=== PATIENT | female | born 1935 | race Caucasian/White ===

== ENCOUNTER → 2017-11-22 10:24 | Outpatient (CLI) | payer MEDICARE, SELFPAY ==
--- NOTE | 2017-11-22 | DI.RAD.S_ITS ---
PROCEDURE: XR KNEE RT 3V INDICATIONS: RIGHT AND LEFT KNEE PAIN TECHNIQUE: 3 views of the knee were acquired. COMPARISON: None. FINDINGS: Bones: No fractures or dislocations. No suspicious bony lesions. [id number] narrowing of the patellofemoral joint space. Severe narrowing of the lateral and mild narrowing of the medial joint spaces. Subchondral sclerosis and spurring. Soft tissues: Small joint effusion. No suspicious soft tissue calcifications. Scattered vascular calcifications. IMPRESSION: Severe degenerative joint disease. Small joint effusion. Dictated by: Bandar Marte M.D. on 11/22/2017 at 11:04 Approved by: Bandar Marte M.D. on 11/22/2017 at 11:05
--- NOTE | 2017-11-22 | DI.RAD.S_ITS ---
PROCEDURE: XR KNEE LT 3V INDICATIONS: RIGHT AND LEFT KNEE PAIN TECHNIQUE: 3 views of the knee were acquired. COMPARISON: None. FINDINGS: Bones: No fractures or dislocations. Severe patellofemoral joint space narrowing with [id number] appearance in lateral patellar subluxation. Moderate narrowing of the medial lateral joint spaces. There is subchondral sclerosis. Chondrocalcinosis noted No suspicious bony lesions. Soft tissues: Small joint effusion. No suspicious soft tissue calcifications. IMPRESSION: Severe knee joint degeneration, most advanced in the patellofemoral compartment. Chondrocalcinosis. Small joint effusion. Dictated by: Bandar Marte M.D. on 11/22/2017 at 11:05 Approved by: Bandar Marte M.D. on 11/22/2017 at 11:06
== END ==
PROVIDERS: PCP Physician Assistant; Visit Provider Physician Assistant
DX: M17.0 Bilateral primary osteoarthritis of knee (principal); M25.562 Pain in left knee; M25.561 Pain in right knee; M25.462 Effusion, left knee; M25.461 Effusion, right knee
CPT/HCPCS: 73562

== ENCOUNTER → 2018-05-24 16:09 | Outpatient (CLI) | payer MEDICARE, SELFPAY ==
[2018-05-24 17:12] LABS: Basophils Absolute Auto 100 /uL (0-100); Basophils Percent Auto 0.7 % (0-2); Eosinophils Absolute Auto 200 /uL (0-450); Eosinophils Percent Auto 2.2 % (2-4); Hematocrit 40.8 % (36-46); Hemoglobin 13.6 g/dL (12.0-16.0); Lymphocytes Absolute Auto 1700 /uL (1100-4500); Lymphocytes Percent Auto 18.4 % (25-40); Mean Corpuscular HGB Conc 33.3 % (30-36); Mean Corpuscular Volume 96.1 fL (80-100); Monocytes Absolute Auto 1100 /uL (0-900); Monocytes Percent Auto 11.7 % (3-14); Neutrophils Absolute Auto 6100 /uL (1500-7000); Platelet Count 154 X10^3/uL (150-400); Red Blood Cell Count 4.24 X10^6/uL (4.0-5.2); Red Cell Distribution Width 14.2 % (11.6-14.8); White Blood Cell Count 9.1 X10^3/uL (4.5-11.0)
[2018-05-24 17:15] LABS: Add Manual Diff / Slide Review SLIDE REVIEW
[2018-05-24 17:48] LABS: BUN Creatinine Ratio 19.2 (6-22); Blood Urea Nitrogen 23 mg/dL (7-17); Calcium 9.5 mg/dL (8.4-10.2); Carbon Dioxide 28 mmol/L (22-32); Chloride 102 mmol/L (98-107); Estimated Glomerular Filt Rate 43.1 mL/min (>60); Glucose 87 mg/dL (80-110); HEMOLYSIS < 15 (0-50); Potassium 4.5 mmol/L (3.4-5.1); Sodium 140 mmol/L (137-145)
[2018-05-24 18:09] LABS: RBC Morphology Normal Morphology
== END ==
PROVIDERS: PCP Physician Assistant; Visit Provider Orthopaedic Surgery
DX: Z01.818 Encounter for other preprocedural examination (principal)
CPT/HCPCS: 36415; 80048; 85025

== ENCOUNTER 2018-05-30 08:14 | Inpatient (IN) | payer MEDICARE, SELFPAY ==
[2018-05-15 10:48] VITALS: BMI 38.5
[2018-05-30] VITALS (19 sets, daily range): BP systolic 83–140; BP diastolic 32–63; PULSE 56–599; RESP 10–17; TEMP 35.2–36.7; O2SAT 94–100; BMI 38.5
--- NOTE | 2018-05-30 | DI.RAD.S_ITS ---
PROCEDURE: XR HIP W PEL IF DONE RT 2V INDICATIONS: POST OPERATIVE LEFT HIP TECHNIQUE: AP pelvis and lateral view of the left hip acquired. COMPARISON: [facility], CR, XR PELVIS WITH LATERAL HIP LEFT, 12/04/2017, 13:48. [facility], CR, XR HIP W PEL IF DONE LT 2V, 05/30/2018, 12:36. FINDINGS: Bones: Patient is status post left hip arthroplasty, with hardware components in expected positions. The hip joint appears congruent. The visualized bony structures appear intact. Soft tissues: Overlying postoperative changes are noted. No suspicious soft tissue densities. IMPRESSION: Normal alignment after left total hip arthroplasty. With reference to prior plain film imaging of the pelvis preoperatively, 12/04/17, the laterality of the hip that was operated on was definitely the left hip. Dictated by: Cheikh Dyson M.D. on 05/30/2018 at 14:37 Approved by: Cheikh Dyson M.D. on 05/30/2018 at 14:39
--- NOTE | 2018-05-30 06:53 | DI.RAD.S_ITS ---
PROCEDURE: XR HIP W PEL IF DONE LT 2V INDICATIONS: prosthesis placement TECHNIQUE: 2 view(s) of the hip acquired. COMPARISON: None. FINDINGS: Bones: Patient is evaluated during the process of right total hip arthroplasty, with sizing hardware components in expected positions. The hip joint femoral head arthroplasty component has not been placed. The visualized bony structures appear intact. Soft tissues: Overlying postoperative changes are noted. No suspicious soft tissue densities. IMPRESSION: Normal intraoperative alignment during sizing procedure for placement of final components of right total hip arthroplasty. Dictated by: Cheikh Dyson M.D. on 05/30/2018 at 13:08 Approved by: Cheikh Dyson M.D. on 05/30/2018 at 13:10
[2018-05-30] MEDS: LACTATED RINGERS 1,000 ML 42 ML IV ×2 (09:05→13:43)
[2018-05-30] MEDS: ACETAMINOPHEN 325 MG TABLET 975 MG PO ×2 (09:39→21:13)
[2018-05-30] MEDS: PREGABALIN 75 MG CAPSULE PO (09:39)
[2018-05-30] MEDS: VANCOMYCIN 1,000 MG/200 ML FROZ.PIGGY 200 MG IV (10:05)
--- NOTE | 2018-05-30 11:14 | PM.PREOP ---
Pre-operative Note Interval Note History & Physical reviewed/Exam performed by Physician: Yes Changes to H&P: No
--- NOTE | 2018-05-30 11:16 | P.OP_ITS ---
Operative Date/Time/Diagnoses Date of procedure: 05/30/18 Time of procedure: 11:14 Pre-op diagnosis: left hip OA Post-op diagnosis: same Procedure & Clinicians Procedure: left total hip arthroplasty Same procedure as scheduled: Yes Indications: The patient has had progressively worsening left hip pain with radiographic changes consistent with arthritis. Non-operative management has failed and the patient has requested total hip replacement. The risks, benefits and alternatives to surgery were discussed with the patient prior to proceeding. Risks discussed included, but were not limited to, failure to relieve pain, leg length discrepancy, dislocation, stiffness, infection, nerve damage, deep venous thrombosis, pulmonary embolism, stroke, coma, heart attack, permanent paralysis and , as well as the potential need for eventual revision of the prosthetic. Surgeon: Margarita Gracia Exercise Science Internship: [employer] [facility]ost[employer] Anesthesia Type: General and Spinal Operative Notes Findings: Severe left hip osteoarthritis with moderate collapse of the femoral head, adequate stability Closure Type: primary Specimen(s): none sent Prosthetic devices, grafts, tissues, transplants, or devices: Gracia and Nephew standard anthology 8, 52 R3, 52 x 36, 36 by -3 Applied: drain(s) Estimated Blood Loss (mL): 250 Blood products transfused: none Procedure in detail: The patient was seen in the pre-operative area, where the patient identified the left hip as the operative site and this was marked with my initials. The patient received pre-operative antibiotics and was taken to the operating room and placed on the operative table in the right lateral decubitus position after satisfactory anesthesia. A time stamp assembler out was performed. The left leg was prepared from the ankle to the iliac crest with ChloroPrep in the usual fashion and draped through sterile drapes. The hip was approached through an approximately 20 cm incision centered over the greater trochanter and curving gently posteriorly as it went proximally. This was carried sharply to the fascia mehdi, which was divided and retracted with a self retaining retractor. The trochanteric bursa was excised with care being taken to avoid the sciatic nerve, which was identified and protected throughout the case. The short external rotators were incised and the capsulomuscular flap was raised and tagged for later repair. The hip was dislocated, and a femoral neck osteotomy performed approximately 15 mm above the lesser trochanter. Retractors were placed around the femur. The canal was opened with a box cutting osteotome, followed by a T handled reamer and a lateralizing reamer. The chili pepper broach was then used, followed by sequential broaching until there was good stability of the broach in the femur. Retractors were placed to expose the acetabulum. The labrum and central soft tissues were removed. Reaming was performed initially going up in 2 mm increments, then 1 mm increments until good bite was obtained with an odd sized reamer. The cup 1 mm larger than the last reamer was then inserted using the appropriate anteversion guides. A trial neutral liner was placed. The broach was placed in the canal. A trial head and neck were then placed and the hip relocated and checked for leg length and stability. An intraoperative film confirmed the component position and no evidence of fracture. The patient was stable in the position of sleep, of squatting, and could be put through a range of motion with 45 degrees internal rotation without dislocation. At 90 degrees flexion, internal rotation to 90 was possible before dislocation. This was felt to be satisfactory and the appropriate components were opened, and the trials were removed. The acetabular liner was impacted into position. The final stem was then impacted into the prepared femoral canal. A brief Betadine soak was performed while trialing with head options. The hip was meticulously irrigated with normal saline. Finally the femoral head was impacted onto the stem. The acetabulum was cleared of all material and the hip relocated one final time. The capsulomuscular flap was then repaired to the greater trochanter though an awl hole using the tag sutures. The short external rotators were repaired with a nonabsorbable suture. A deep drain was placed and brought out anteriorly. The fascia mehdi was closed with Vicryl. The subcutaneous layer was closed with barbed sutures and SteriStrips. An Aquacel Ag dressing was applied and the patient was taken to recovery having tolerated the procedure well. Complications: none Condition: stable Disposition: Acute Care Plan for aftercare: The patient will be maintained on a standard total hip replacement protocol with weight bearing as tolerated and posterior hip precautions. The patient will receive Aspirin and sequential compression devices for DVT prophylaxis. The patient will be discharged home when safe for the home environment.
[2018-05-30] MEDS: CEFAZOLIN 2 GM/100 ML FROZ.PIGGY IV ×2 (11:30→21:09)
--- NOTE | 2018-05-30 12:00 | SUR.OPER ---
Lateral on padded OR bed. Gel axillary roll. Arms secured on padded armboard with pillow supporting top arm. Padded hip positioner braces x4 - anterior and posterior chest and pelvis. Additional gel pad used anterior pelvis. Gel pad under bottom leg from knee to foot and secured with tape over sheet.
[2018-05-30] MEDS: BUPIVACAINE 0.25% W/ EPI VIAL 60 ML INJ (12:08)
[2018-05-30] MEDS: TRANEXAMIC ACID 1,000 MG VIAL 1000 MG INJ (12:09)
[2018-05-30] MEDS: BUPIVACAINE LIPOSOME 266 MG/20 ML VIAL INJ (12:09)
[2018-05-30] MEDS: EPINEPHrine 1 MG/ML AMPUL IRR (12:14)
[2018-05-30] MEDS: METOCLOPRAMIDE 10 MG/2 ML INJ IV (14:05)
--- NOTE | 2018-05-30 14:09 | SUR.PHASEI ---
1400 pt had sudden onset of nausea and vomited approximately 50mls green/yellow liquid.
[2018-05-30] MEDS: ONDANSETRON 4 MG/2 ML INJ IV ×3 (14:20→22:18)
--- NOTE | 2018-05-30 14:27 | SUR.PHASEI ---
Report called to Barbara, rn, pt packed up and ready for transport and had again sudden onset of nausea and vomited, ondansetron given, barbara called back, transfer on hold. Also on admit to pacu pt noted to have redness and peeling skin to abdominal fold, dr sheikh aware, stated med to treat ordered.
[2018-05-30] MEDS: NALOXONE 0.4 MG/ML VIAL 0.1 MG IV (15:00)
--- NOTE | 2018-05-30 15:04 | SUR.PHASEI ---
Pt vomited a second time, spoke with Dr. vasquez, naloxone 80 mcg given as ordered, pt corrently w/o nausea.
--- NOTE | 2018-05-30 16:08 | SUR.PHASEI ---
Pt w/o nausea for period of time, transfer on hold for change of shift. Pt nauseated again, Dr Avery aware, stated pt ok for transfer, meds for nausea ordered for acute care.
--- NOTE | 2018-05-30 16:10 | SUR.PHASEI ---
Pt transported upstairs to room, left with gail and left in stable condition.
[2018-05-30] MEDS: LACTATED RINGERS 1,000 ML 125 ML IV (17:20)
[2018-05-30] MEDS: DOCUSATE 100 MG CAPSULE PO (21:13)
[2018-05-30] MEDS: ASPIRIN EC 81 MG TABLET PO (21:13)
[2018-05-30] MEDS: GABAPENTIN 600 MG TABLET PO (21:14)
[2018-05-30] MEDS: NYSTATIN CREAM 30 GM 1 APPLIC TOP (21:14)
[2018-05-30] MEDS: METOPROLOL IR 50 MG TABLET PO (21:14)
[2018-05-30] MEDS: TRAMADOL 50 MG TABLET PO (22:18)
[2018-05-31] MEDS: LACTATED RINGERS 1,000 ML 125 ML IV (01:47)
[2018-05-31 04:34] VITALS: BP 132/71; PULSE 60; RESP 16; O2SAT 100
[2018-05-31] MEDS: CEFAZOLIN 2 GM/100 ML FROZ.PIGGY IV (04:48)
--- NOTE | 2018-05-31 04:58 | PC.NURSE ---
Shift Note: Received pt from evening shift. Pt's post surgical void was due at midnight (0000). Pt attempted to void, bladder scan was less than 300ml. Pt made several further attempts to void and last bladder scan amount was >465. Performed an in and out cath on pt at 0400 and output was 675ml of urine. Educated pt that she must void on her own by 1200. Pt acknowledged understanding.
[2018-05-31] MEDS: LEVOTHYROXINE 25 MCG TABLET PO (06:24)
[2018-05-31 06:26] LABS: Hematocrit 35.4 % (36-46); Hemoglobin 11.6 g/dL (12.0-16.0)
[2018-05-31 07:36] VITALS: PULSE 55; RESP 14; O2SAT 100
[2018-05-31 08:00] VITALS: BP 123/69; PULSE 57; RESP 16; TEMP 36.3; O2SAT 97
--- NOTE | 2018-05-31 09:13 | PM.PNPO.1 ---
Subjective Date Patient Seen: 05/31/18 Time Patient Seen: 09:13 Interval history: POD #1 Status post left total hip arthroplasty with Dr. Gracia. Patient has not been up with physical therapy yet. Her pain has been well controlled tramadol. She normally takes Coumadin for AFib. She has had postoperative nausea following surgery. Patient is voiding on her own. Exam Vital Signs (past 8 hours): - 05/31/18 04:34 05/31/18 08:00 Temperature 97.3 F L Pulse Rate 60 57 L Respiratory Rate 16 16 Blood Pressure 132/71 123/69 Pulse Oximetry 100 97 Oxygen Delivery Method Nasal Cannula Oxygen Flow Rate 2 Narrative Exam Narrative: Patient sitting up in bed in no acute distress. She is alert and oriented x3. Calves are soft, compressible, nontender bilaterally. Left hip dressing is CDI. Hemovac drain in place. Sensation intact to light touch throughout bilateral lower extremities. She is able to actively dorsiflex plantar flex. Objective Labs Result Diagrams: 05/31/18 05:38 Labs: Laboratory Results - last 24 hr 05/31/18 05:38 Hgb 11.6 L Hct 35.4 L Assessment & Plan Post-op (1) Atrial fibrillation with RVR: (2) S/P total hip arthroplasty: Postoperative Procedures Operation Date: 05/30/18 10:45 Actual Procedures Side Surgeon p Total Hip Arthroplasty Left Margarita Gracia MD Patient will mobilize with physical therapy today. She will have posterior hip precautions. Continue current pain and nausea medication management. Patient may DC home tonight or tomorrow once mobilizing safely and pain adequately controlled. Quality VTE Deep Vein Thrombosis/Pulmonary Embolism Present on Admission: No
[2018-05-31] MEDS: TRAMADOL 50 MG TABLET PO (09:58)
[2018-05-31] MEDS: ACETAMINOPHEN 325 MG TABLET 975 MG PO ×2 (09:59→13:44)
[2018-05-31] MEDS: DOCUSATE 100 MG CAPSULE PO (09:59)
[2018-05-31] MEDS: GABAPENTIN 100 MG CAPSULE PO (09:59)
[2018-05-31] MEDS: ASPIRIN EC 81 MG TABLET PO (09:59)
[2018-05-31] MEDS: METOPROLOL IR 50 MG TABLET PO (10:00)
[2018-05-31] MEDS: valACYclovir 500 MG TABLET PO (10:01)
[2018-05-31] MEDS: NYSTATIN CREAM 30 GM 1 APPLIC TOP (10:05)
--- NOTE | 2018-05-31 10:33 | PT.IIE ---
Current Diagnoses Unspecified atrial fibrillation (05/30/18) Unilateral primary osteoarthritis, left hip (05/30/18) Presence of unspecified artificial hip joint (05/30/18) Surgery Performed Operation Date: 05/30/18 10:45 Actual Procedures p Total Hip Arthroplasty(Left) - Margarita Gracia MD Surgical History (Last Updated 05/15/18 @ 11:17 by Rosalina Perez RN) History of carpal tunnel release (Acute ~2008) Hx of bladder repair surgery (Acute ~1992) Hx of cholecystectomy (Acute ~1979) Hx of shoulder surgery (Acute ~2006) Status post bilateral cataract extraction (Acute ~2004) Medical History (Last Updated 05/15/18 @ 11:24 by Rosalina Perez RN) Atrial fibrillation (Acute) Chronic kidney disease (Acute) DDD (degenerative disc disease), lumbar (Acute) Edema (Acute) Former smoker (Acute) HTN (hypertension) (Acute) History of hysterectomy (Acute ~01/1990) Neuropathy (Acute) Osteoarthritis (Acute) Osteoporosis (Acute) Pneumonia (Acute 05/22/16) Physical Therapy Inpatient Evaluation/Re-Eval M1 PT/OT-IP Prior Functional Status Start: 05/31/18 13:01 Freq: NEEDED Status: Active Protocol: Document 05/31/18 10:33 AB (Rec: 05/31/18 13:18 AB [id number]) Medical Review Prior Functional Status Medical History Reviewed Yes Communication able to make needs known Mobility and Gait stated that she is modified independent with all mobilities and ambulation using 4WW Activities of Daily Living and IADL's has a caregiver that assists her with putting her socks on Social History Household Members none Living Arrangements Assisted Living Number of Floors (Floors) One Floor Number of Stairs To Enter/Railing? pt lives in the 3rd floor of an [facility] in [facility] with an elevator to get into her floor Home Environment Walk in Shower Built-In Shower Seat Home Equipment Four Wheel Walker Raised Toilet Seat Without Armrests Hand Held Shower Grab Bars Near Toilet Grab Bars In Shower Employment Status Retired Additional Social History Comment daughter stated that she will stay with pt for 1 week to assist her and afterwards, pt has caregivers in the [facility] that she can call for assistance. M2 PT-IP Current Condition Start: 05/31/18 13:01 Freq: NEEDED Status: Active Protocol: Document 05/31/18 10:33 AB (Rec: 05/31/18 13:18 AB [email or web address]) Physical Therapy Current Condition Current Condition Evaluation Date 05/31/18 Treatment Diagnosis s/p L OPAL posterior approach; difficulty in walking Onset Date 05/30/18 Precautions Posterior Hip Precautions No Hip Flexion > 90 degrees No Hip Internal Rotation No Hip Adduction Other Precautions falls Weight Bearing Status Weight Bearing Status Weight Bear as Tolerated M3 PT-IP Subjective Start: 05/31/18 13:01 Freq: NEEDED Status: Active Protocol: Document 05/31/18 10:33 AB (Rec: 05/31/18 13:18 AB [email or web address]) Subjective Physical Therapy Visit Type Type Initial Evaluation Visit Start Time 10:33 Visit Stop Time 11:40 Total Visit Minutes 67 Number of DECALER Visits 0 Physical Therapy Visit Comments Patient Comments pt agreeable to do PT Therapy Pain Assessment Pain When Pain Assessed At Rest Pain Present Pain Present Pain Reported Location Left Hip Intensity 2 Scale Used increases to 4/10 with weight bearing Pain Management Techniques Apply Cold Re-positioning Timing of Activity with Medications M4 PT-IP Mobility and Gait Start: 05/31/18 13:01 Freq: NEEDED Status: Active Protocol: Document 05/31/18 10:33 AB (Rec: 05/31/18 13:18 AB [email or web address]) PT-Bed Mobility Assessment Supine to Sit Supine to Sit Maximum Assistance 1 Person Assistance PT-Transfer Assessment Sit to and From Stand Sit to and from Stand Minimal Assistance Equipment Transfer Assistive Device Gait Belt Front Wheeled Walker Orthotic/Prosthetic Devices or Brace: No Transfers Transfer Destination Toilet Transfer Technique pt ambulated to the toilet using FWW Transfer Ability Level of Assist Minimal Assistance 1 Person Assistance Use of Upper Extremities Comments Mobility Comments pt required max A for bed mobility supine to sit. completed sit to stand from EOB min A and max cues for hip precautions. pt ambulated to the toilet using FWW ~ 10 ft min A. pt required min A and max cues for controlled descent on the toilet. pt ambulated out of the toilet and agreed to sit up on the chair. positioned pt on chair . call light and table placed within reach. Gait Assessment Gait Gait Assistance Required: Minimum Assistance Distance (Feet) 10 Able to Maintain Weight Bearing Status Yes During Gait Assistive Devices Assistive Device Gait Belt Front Wheeled Walker Orthotic/Prosthetic Devices or Brace: No Gait Deviations General Gait Pattern Antalgic Decreased Stride Length Decreased Feet Clearance Factors Limiting Gait Function Factors Limiting Gait Function Decreased Activity Tolerance Decreased Strength Limited Range of Motion Pain Poor Balance Poor Safety Awareness Comments Gait Comments pls refer to mobility section for details PT-Balance Assessment Sitting Balance and Reactions Static Sitting Balance Ability Good Dynamic Sitting Balance Ability Good Standing Balance and Reactions Static Standing Balance Ability Fair Dynamic Standing Balance Ability Fair Device Used FWW M5 PT-IP Objective Assessments Start: 05/31/18 13:01 Freq: NEEDED Status: Active Protocol: Document 05/31/18 10:33 AB (Rec: 05/31/18 13:18 AB [email or web address]) Orientation Orientation/Cognition Level of Alertness Alert Orientation Name Age Place Situation Language Function Ability Hard of Hearing Safety Awareness Decreased Safety Awareness Memory Description Short Term Impaired Penitentiary Impaired Gross Range of Motion Lower Extremity ROM Assessment Left Impaired Strength Lower Extremity Strength Assessment Left Impaired Knee 3+/5 Coordination Assessment Gross Coordination Gross Coordination WNL Muscle Tone Muscle Tone WNL Yes M6 PT-IP Treatment Start: 05/31/18 13:01 Freq: NEEDED Status: Active Protocol: Document 05/31/18 10:33 AB (Rec: 05/31/18 13:18 AB [email or web address]) Physical Therapy Treatment Exercises Exercises Heel Slides Education Education Provided Precautions Weight Bearing Status Post-Op Packet Safety Other Treatments Other Treatment Performed pt's daughters present during tx session and educated on precautions and assistance needed. M7 PT-IP Assessment and Plan Start: 05/31/18 13:01 Freq: NEEDED Status: Active Protocol: Document 05/31/18 10:33 AB (Rec: 05/31/18 13:18 AB [email or web address]) PT Summary Assessment and Plan Potential Rehabilitation Potential Good Status of Condition at Evaluation Evolving Summary Impairments Pain ROM Strength Balance Coordination Sensation Tone Cognition Bed Mobility Transfers Gait Activity Tolerance Assessment Summary pt requiring one person assist with mobility and will likely progress during hospital stay . caregiver training will be conducted when appropriate. pt plans to go home with her daughter to assist her and is set up with [facility] for PT upon d/c. Goals Bed Mobility Goal Standby Assistance Transfer Goal Standby Assistance Front Wheeled Walker Four Wheeled Walker Gait Goal Standby Assistance Front Wheel Walker Four Wheel Walker Gait Distance 150 Days to Meet Goals 5 Frequency of Treatment Frequency Of Treatment Twice a Day Treatment Plan Physical Therapy Treatment Plan Bed Mobility Training Transfer Training Gait Training Therapeutic Exercise Balance Retraining Post Op Education Discharge Planning Hot or Cold Pack Neuromuscular Re-ed Coordination Retraining Manual Therapy Other Recommendations and Next Treatment ambulation using 4WW when Focus appropriate (pt expressed that she prefers to use a 4WW but agreed to try a FWW ) Recommendations To Nursing Amount of Assist Needed 1 Person Assist Discharge Recommendations PT Discharge Recommendations Home with 24/ Assist Home Health Equipment Needed for Home Before FWW: if not safe with a 4WW Discharge
--- NOTE | 2018-05-31 12:27 | CM.IDA ---
Discharge Planning/Care Management CM Discharge Assessment Start: 05/31/18 12:21 Freq: Status: Active Protocol: Document 05/31/18 12:21 ROSALBA (Rec: 05/31/18 12:27 ROSALBA [email or web address]) Discharge Planning Assessment Assigned Procurement Specialist ARMANDO Bui DPOA/Assigned Designee Name Kati Agck Contact Information [phone] Advance Directives? Yes: Health Care POA/Living Will Advance Directives on File Yes History Provided By Patient Medical Record Prior Living Arrangements [facility] Facility Comment [facility] Household Members none Type of transporation used prior to Relies on Others admit Facility Name Admitted From: [facility] Willing to Return to Facility? Yes Independent with ADL's Uses FWW, unsure if pt lives at [facility] vs [facility] Is patient alert and oriented? Yes Barriers to Discharge Yes Comment Pt POD#1 from left hip surgery w/ Dr Gracia. Payer: [facility]. Reviewed chart. PT eval pending. Pt hopeful she can return to her home, [facility]. Need bedside assessment to determine DC needs, will await results from initial PT eval. ARMANDO Mercedes Discharge Plan Home Transportation Arrangement Unknown Additional Comment Pending therapy eval Review Status In Process
[2018-05-31 13:30] VITALS: BP 131/72; PULSE 56; RESP 16; TEMP 36.3; O2SAT 98
--- NOTE | 2018-05-31 14:19 | PT.IPTN ---
Current Diagnoses Unspecified atrial fibrillation (05/30/18) Unilateral primary osteoarthritis, left hip (05/30/18) Presence of unspecified artificial hip joint (05/30/18) Surgery Performed Operation Date: 05/30/18 10:45 Actual Procedures p Total Hip Arthroplasty(Left) - Margarita Gracia MD Physical Therapy Treatment Note M2 PT-IP Current Condition Start: 05/31/18 13:01 Freq: NEEDED Status: Active Protocol: Document 05/31/18 10:33 AB (Rec: 05/31/18 13:18 AB [id number]) Physical Therapy Current Condition Current Condition Evaluation Date 05/31/18 Treatment Diagnosis s/p L OPAL posterior approach; difficulty in walking Onset Date 05/30/18 Precautions Posterior Hip Precautions No Hip Flexion > 90 degrees No Hip Internal Rotation No Hip Adduction Other Precautions falls Weight Bearing Status Weight Bearing Status Weight Bear as Tolerated M3 PT-IP Subjective Start: 05/31/18 13:01 Freq: NEEDED Status: Active Protocol: Document 05/31/18 14:19 AB (Rec: 05/31/18 16:34 AB [id number]) Subjective Physical Therapy Visit Type Type Treatment Note Visit Start Time 14:19 Visit Stop Time 15:24 Total Visit Minutes 65 Number of LODGE SALES ASSOCIATE Visits 0 M4 PT-IP Mobility and Gait Start: 05/31/18 13:01 Freq: NEEDED Status: Active Protocol: Document 05/31/18 14:19 AB (Rec: 05/31/18 16:34 AB [id number]) PT-Bed Mobility Assessment Supine to Sit Supine to Sit Maximum Assistance 1 Person Assistance Sit to Supine Sit to Supine Moderate Assistance 1 Person Assistance PT-Transfer Assessment Sit to and From Stand Sit to and from Stand Minimal Assistance 1 Person Assistance Use of Upper Extremities Equipment Transfer Assistive Device Gait Belt 4 Wheeled Walker Orthotic/Prosthetic Devices or Brace: No Transfers Transfer Destination Bed Chair Transfer Technique Stand Step Pivot Transfer Ability Level of Assist Contact Guard Assistance Minimal Assistance Comments Mobility Comments caregiver training conducted. educated pt's daughter on h ow to use safety belt and how to assist pt. pt's daughter was able to safely assist pt with bed mobility, transfers and ambulation using FWW. pt easily distracted and requires frequent cues to stay on task and for safety. daughter was able to cue pt appropriately. Gait Assessment Gait Gait Assistance Required: Contact Guard Assist Minimum Assistance Distance (Feet) 100 Able to Maintain Weight Bearing Status Yes During Gait Assistive Devices Assistive Device Gait Belt 4 Wheeled Walker Orthotic/Prosthetic Devices or Brace: No Gait Deviations General Gait Pattern Antalgic Decreased Stride Length Decreased Feet Clearance Factors Limiting Gait Function Factors Limiting Gait Function Decreased Activity Tolerance Decreased Strength Pain Poor Balance Poor Safety Awareness Comments Gait Comments daughter was able to assist pt with ambulation using 4WW M5 PT-IP Objective Assessments Start: 05/31/18 13:01 Freq: NEEDED Status: Active Protocol: Document 05/31/18 10:33 AB (Rec: 05/31/18 13:18 AB [id number]) Orientation Orientation/Cognition Level of Alertness Alert Orientation Name Age Place Situation Language Function Ability Hard of Hearing Safety Awareness Decreased Safety Awareness Memory Description Short Term Impaired Public Safety Dispatcher Impaired Gross Range of Motion Lower Extremity ROM Assessment Left Impaired Strength Lower Extremity Strength Assessment Left Impaired Knee 3+/5 Coordination Assessment Gross Coordination Gross Coordination WNL Muscle Tone Muscle Tone WNL Yes M6 PT-IP Treatment Start: 05/31/18 13:01 Freq: NEEDED Status: Active Protocol: Document 05/31/18 14:19 AB (Rec: 05/31/18 16:34 AB [id number]) Physical Therapy Treatment Education Education Provided Precautions Safety M7 PT-IP Assessment and Plan Start: 05/31/18 13:01 Freq: NEEDED Status: Active Protocol: Document 05/31/18 14:19 AB (Rec: 05/31/18 16:34 AB [id number]) PT Summary Assessment and Plan Potential Rehabilitation Potential Good Summary Impairments Pain ROM Strength Balance Coordination Sensation Tone Cognition Bed Mobility Transfers Gait Activity Tolerance Progress Towards Goals Progressing Toward Goals Assessment Summary caregiver training conducted and pt's daughter was able to assist pt appropriately. pt plans to go home today. Goals Bed Mobility Goal Standby Assistance Transfer Goal Standby Assistance Front Wheeled Walker Four Wheeled Walker Gait Goal Standby Assistance Front Wheel Walker Four Wheel Walker Gait Distance 150 Days to Meet Goals 5 Frequency of Treatment Frequency Of Treatment Twice a Day Treatment Plan Physical Therapy Treatment Plan Bed Mobility Training Transfer Training Gait Training Therapeutic Exercise Balance Retraining Post Op Education Discharge Planning Hot or Cold Pack Neuromuscular Re-ed Coordination Retraining Manual Therapy Recommendations To Nursing Amount of Assist Needed 1 Person Assist Discharge Recommendations PT Discharge Recommendations Home with 16/10 Assist Home Health
--- NOTE | 2018-05-31 15:59 | PC.NURSE ---
pending discharge: Wants to d/c home, dtr here and has training by PT. Was able to void x3, po pain meds effective. Hemovac d/c intact, dressing applied. Family given extra dressing for home. Does need reminders to follow hip precautions. Being eval by [facility], hopefully home later today.
--- NOTE | 2018-05-31 16:32 | PC.NURSE ---
Pt discharging with daughter to [facility]. Facility notified and packet/Rx given to daughter. Pt denies need for pain meds. Hemovac dressing changed. All belongings with pt/daughter. Denies further questions/needs.
== END 2018-05-31 16:35 | disposition home or self-care (01) | DRG 470 ==
LOC: AC 08:50 → ICU 09:19 → AC 16:30
PROVIDERS: Admitting Provider Orthopaedic Surgery; PCP Physician Assistant; Visit Provider Orthopaedic Surgery
PROC: 0SRB0JZ Replacement of Left Hip Joint with Synthetic Substitute, Open Approach (ICD-10-PCS; CPT 27130; principal; 2018-05-30 10:45)
DX: M16.12 Unilateral primary osteoarthritis, left hip (principal); I48.91 Unspecified atrial fibrillation; Z79.01 Long term (current) use of anticoagulants; M10.9 Gout, unspecified; E66.9 Obesity, unspecified; G62.9 Polyneuropathy, unspecified; Z68.38 Body mass index [BMI] 38.0-38.9, adult; I12.9 Hypertensive chronic kidney disease with stage 1 through stage 4 chronic kidney disease, or unspecified chronic kidney disease; N18.9 Chronic kidney disease, unspecified; R11.0 Nausea
CPT/HCPCS: 73502; 85014; 85018; 94760; 94762; 97162; 97530; C1776; C9290; J0171; J0330; J0690; J1100; J2250; J2274; J2310; J2405; J2704; J2765; J3010; J3370

== ENCOUNTER → 2019-09-25 15:59 | Outpatient (ROUT) | payer MEDICARE, SELFPAY ==
[2018-05-30 09:17] VITALS: BMI 38.5
[2019-09-25 16:24] LABS: Alanine Aminotransferase 18 IU/L (<35); Albumin Globulin Ratio 1.4 (1.0-2.8); Alkaline Phosphatase 93 U/L (38-126); Aspartate Aminotransferase 28 IU/L (14-36); BUN Creatinine Ratio 21.6 (6-22); Bilirubin Total 0.4 mg/dL (0.2-1.3); Blood Urea Nitrogen 24 mg/dL (7-17); Calcium 9.3 mg/dL (8.4-10.2); Carbon Dioxide 31 mmol/L (22-32); Chloride 103 mmol/L (98-107); Estimated Glomerular Filt Rate 47.1 mL/min (>60); Globulin 2.9 g/dL (1.7-4.1); Glucose 80 mg/dL (80-110); HEMOLYSIS < 15 (0-50); Potassium 4.7 mmol/L (3.4-5.1); Sodium 139 mmol/L (137-145); Total Protein 6.9 g/dL (6.3-8.2)
[2019-09-25 16:52] LABS: Add Manual Diff / Slide Review NO; Basophils Absolute Auto 100 /uL (0-100); Basophils Percent Auto 1.4 % (0-2); Eosinophils Absolute Auto 200 /uL (0-450); Eosinophils Percent Auto 3.2 % (2-4); Hematocrit 38.6 % (36-46); Lymphocytes Absolute Auto 1400 /uL (1100-4500); Lymphocytes Percent Auto 20.4 % (25-40); Mean Corpuscular HGB Conc 33.7 % (30-36); Mean Corpuscular Hemoglobin 32.5 PG (26-34); Mean Corpuscular Volume 96.5 fL (80-100); Monocytes Absolute Auto 700 /uL (0-900); Monocytes Percent Auto 10.4 % (3-14); Neutrophils Absolute Auto 4500 /uL (1500-7000); Neutrophils Percent Auto 64.6 % (50-75); Platelet Count 160 X10^3/uL (150-400); Red Cell Distribution Width 14.7 % (11.6-14.8); White Blood Cell Count 6.9 X10^3/uL (4.5-11.0)
[2019-09-25 16:54] LABS: Thyroid Stimulating Hormone 4.35 uIU/mL (0.47-4.68)
== END ==
PROVIDERS: PCP Physician Assistant; Visit Provider Student in an Organized Health Care Education/Training Program
DX: Z00.00 Encounter for general adult medical examination without abnormal findings (principal); I10 Essential (primary) hypertension; I48.20 Chronic atrial fibrillation, unspecified; E03.9 Hypothyroidism, unspecified
CPT/HCPCS: 80053; 84443; 85025

== ENCOUNTER 2020-07-07 10:01 | Emergency (ER) | payer MEDICARE, SELFPAY ==
[2018-05-30 09:17] VITALS: BMI 38.5
[2020-07-07 10:02] VITALS: BP 193/81; PULSE 50; RESP 18; TEMP 36.7; O2SAT 98; BMI 37.6
--- NOTE | 2020-07-07 10:10 | ED_ITS ---
HPI - Fall General Chief Complaint: Trauma Stated Complaint: Fall Time Seen by Provider: 07/07/20 10:09 Source: patient and EMS History of Present Illness HPI Narrative: Patient is an 85-year-old female with history of atrial fibrillation on Coumadin who presents after a mechanical ground level fall. She apparently was standing in the bathroom when she bent down to the bath mat and fell and hit her head. There was no loss of consciousness no neck pain no naus ea or vomiting. She has no numbness tingling or weakness. She has an obvious contusion on her right forehead and on the bridge of her nose with her glasses are. complaint: fall Onset (ago): minute(s) Fall from: standing Related Data Home Medications Medication Instructions Recorded Confirmed gabapentin 100 mg PO BID #0 05/22/16 05/30/18 gabapentin [Neurontin] 600 mg PO HS #0 05/22/16 05/30/18 tramadol 50 mg PO BID #0 05/22/16 05/30/18 valacyclovir 500 mg PO QDAY #0 05/22/16 05/30/18 levothyroxine 25 mcg PO SEEINSTR 05/15/18 05/30/18 metoprolol tartrate 50 mg PO BID 05/15/18 05/30/18 Previous Rx's Medication Instructions Recorded warfarin [Coumadin] 5 mg PO QDAYPM #20 tab 05/24/16 acetaminophen 975 mg PO TID #60 tab 05/31/18 docusate sodium 100 mg PO BID #60 cap 05/31/18 ondansetron HCl [Zofran] 4 mg PO Q6-8H PRN #30 tab 05/31/18 tramadol 50 mg PO Q4HR PRN #40 tab 05/31/18 Allergies Allergy/AdvReac Type Severity Reaction Status Date / Time celecoxib [From Celebrex] AdvReac Severe Kidney Verified 07/07/20 10:11 failure codeine [CODEINE] AdvReac Mild Nausea, Verified 07/07/20 10:11 vomiting Review of Systems Review of Systems ROS Unobtainable: All systems reviewed & are unremarkable except as noted in HPI and below Constitutional Constitutional: Denies chills, Denies fever(s), Denies lethargy and Denies wea kness ENT Ears, Nose, Mouth, and Throat: Denies change in voice, Denies dizziness, Denies neck pain and Denies sore throat Cardiovascular Cardiovascular: Denies chest pain, Denies syncope, Denies rapid heart rate, Reports irregular heart rhythm, Denies dyspnea and Denies dyspnea on exertion Respiratory Respiratory: Denies cough, Denies dyspnea, Denies dyspnea on exertion and Denies wheezing Gastrointestinal Gastrointestinal: Denies abdominal pain, Denies change in bowel habits, Denies diarrhea, Denies nausea and Denies vomiting Musculoskeletal Musculoskeletal: Denies neck pain Integumentary/Breasts Skin/Breast: Denies pruritus, Denies erythema, Denies rash and Denies wounds Neurologic Neurologic: Denies dizziness, Denies syncope and Denies weakness Allergic/Immunologic Allergic/Immunologic: Denies wheezing Patient History Medical History Atrial fibrillation Chronic kidney disease DDD (degenerative disc disease), lumbar Edema Former smoker HTN (hypertension) Neuropathy Osteoarthritis Osteoporosis Pneumonia (05/22/16) Surgical History History of carpal tunnel release (~2008) History of hysterectomy (~01/1990) Hx of bladder repair surgery (~1992) Hx of cholecystectomy (~1979) Hx of shoulder surgery (~2006) Status post bilateral cataract extraction (~2004) Social History household members: none Smoking Status: Former smoker Smoking Status: Former smoker Substance Use Type: does not use Exam Initial Vital Signs Initial Vital Signs: Vital Signs Temperature 98.1 F 07/07/20 10:02 Pulse Rate 50 L 07/07/20 10:02 Respiratory Rate 18 07/07/20 10:02 Blood Pressure 193/81 H 07/07/20 10:02 Pulse Oximetry 98 07/07/20 10:02 GENERAL: Alert 85-year-old female with randall purple hair and in no acute distress. HEENT: Head right forehead contusion no depression or crepitation,EOMI, pupils reactive, face symmetric, moist mucous membranes NECK: No vertebral tenderness no step-offs CARDIOVASCULAR: Regular rate and rhythm without murmurs, rubs or gallops. RESPIRATORY: Breath sounds equal bilaterally, no wheezes rales or rhonchi. ABDOMEN: Soft, nontender. Normoactive bowel sounds all 4 quadrants. No guarding or rebound. EXTREMITIES: Normal range of motion, no clubbing or edema. Neurovascularly intact. No hip or pelvis tenderness. Right hand contusion with laceration able to move fingers distal radial pulse intact NEUROLOGICAL: Alert and oriented x4.Normal gait and speech. Food Safety Scientist strength equal bilaterally SKIN: [id number] right hand dorsal laceration, there is no good skin approximation Course Orders Ordered: ED Orders 07/07/20 10:09 CT cervical spine wo con Stat 07/07/20 10:15 EKG-12 Lead Stat 07/07/20 10:17 CT head/brain wo con Stat 07/07/20 11:21 XR hand RT min 3V Stat Discontinued Medications Diphtheria/Tetanus/Acell Pertussis (Tet,Diph,Pertuss(Acell),Vac/Pf 0.5 Ml Syringe) 0.5 ml IM .ONCE ONE Stop: 07/07/20 11:02 Last Admin: 07/07/20 11:23 Dose: 0.5 ml Documented by: TOYA Gabapentin (Gabapentin 100 Mg Capsule) 100 mg PO NOW ONE Stop: 07/07/20 12:06 Last Admin: 07/07/20 12:28 Dose: 100 mg Documented by: TOYA Vital Signs Vital signs: Vital Signs - 8 hr 07/07/20 12:30 07/07/20 12:31 Pulse Rate 61 Respiratory Rate 16 Blood Pressure 165/72 H Pulse Oximetry 97 97 MDM - Fall Lab Data Labs: Urine Dip Bedside Urine Glucose Negative Bedside Urine Bilirubin - Negative Bedside Urine Ketone - Negative Urine Specific [place] 1.015 Bedside Urine Occult Blood - Negative Bedside Urine pH 6.0 Bedside Urine Protein - Negative Bedside Urine Urobilinogen - Negative Bedside Urine Nitrite - Negative Bedside Urine Leukocytes - Negative Esterase Imaging Data CT scan - head: Radiologist's Impression: PROCEDURE: CT HEAD/BRAIN WO CON INDICATIONS: fall on coumadin TECHNIQUE: Noncontrast 4.5 mm thick angled axial sections acquired from the foramen magnum to the vertex, with coronal and sagittal reformats. For radiation dose reduction, the following was used: automated exposure control, adjustment of mA and/or kV according to patient size. COMPARISON: None. FINDINGS: Image quality: Excellent. CSF spaces: Basal cisterns are patent. No extra-axial fluid collections. The ventricles are symmetric in size and shape. Brain: No intracranial bleeds or masses. There is cerebral volume loss for age, with resultant ventricular and sulcal prominence. There are periventricular and deep white matter chronic small vessel ischemic changes. There is intracranial internal carotid artery atherosclerosis. Skull and face: Calvarium and visualized facial bones appear intact, without suspicious lesions. Small right frontal scalp contusion. Sinuses: Small mucous retention cyst versus polyps noted in the right maxillary sinus. The mastoids are clear. IMPRESSION: No acute intracranial disease process. Dictated by: Clara Schwarz MD, PhD on 07/07/2020 at 10:33 CT - cervical spine: Radiologist's Impression: PROCEDURE: CT CERVICAL SPINE WO CON INDICATIONS: fall on coumadin TECHNIQUE: Noncontrast 3 mm thick sections acquired from the skull base to the T4 level. Sagittal and coronal reformats were then constructed. For radiation dose reduction, the following was used: automated exposure control, adjustment of mA and/or kV according to patient size. COMPARISON: None. FINDINGS: Image quality: Excellent. Bones: No fractures or dislocations. Visualized superior ribs are intact. Severe cervical spondylosis. Advanced multilevel disc height loss. Uncovertebral joint osteophytes at C4-C5 through C7-T1. Trace degenerative retrolisthesis of C5 on C6. Trace degenerative anterolisthesis of C4 on C5. There is probable canal stenosis at C4-C5 and C5-C6. Areas of bilateral cervical facet arthropathy. Soft tissues: Prevertebral soft tissues are normal in thickness. No paravertebral hematomas. No apical pneumothoraces. IMPRESSION: 1. No evidence acute cervical fracture or dislocation. 2. Severe cervical spondylosis. Canal stenosis is suspected. Dictated by: Brennen Quinn M.D. on 07/07/2020 at 10:37 Extremity x-ray #1: Radiologist's Impression: PROCEDURE: XR HAND RT MIN 3V INDICATIONS: fall TECHNIQUE: 3 views of the hand(s) acquired. COMPARISON: None. FINDINGS: Bones: No fractures or dislocations. Carpal bones are normally aligned. No suspicious bony lesions. Moderate degenerative joint disease. There is osteopenia. Triangular fibrocartilage calcification. Soft tissues: No suspicious soft tissue calcifications. Soft tissue swelling. IMPRESSION: 1. No acute osseous abnormalities. If clinical symptoms persist or clinical suspicion for pathology is high, a repeat examination in 7-10 days, or advanced imaging such as CT or MRI is suggested for further evaluation. Dictated by: Bennie Watkins M.D. on 07/07/2020 at 13:33 ECG Data Attestation: I personally reviewed and interpreted this ECG as follows: Prior ECG tracings: available for review Interpretation: Normal sinus rhythm rate 53 p.r. interval 162 QRS 82 QTC 415 previous EKG shows AFib with RVR in 2017. MDM Narrative Medical decision making narrative: The patient is very pleasant. At this time right hand laceration does not appear suturable there is a very large gap with no good skin approximation. Is good dressing and bandages placed. Patient suffered a mechanical fall no need for further workup at this time. Discharge Plan Departure Patient Disposition: Home Clinical Impression: Laceration of hand, right Closed head injury Qualifiers: Encounter type: initial encounter Qualified Code(s): S09.90XA - Unspecified injury of head, initial encounter Instructions: Closed Head Injury Activity Restrictions/Additional Instructions: *You have been diagnosed with closed head injury, right hand skin tear *What to do: At this time CT scans are negative. Please monitor your hand for infection is. May wash with soap and water. Keep dressing on for up to 1 week. *Continue to take medications as directed *Follow up with your primary care provider in 2-3 days *Return to ER if you should have persistent headache, persistent vomiting, weakness numbness tingling, redness pus swelling or any new, worsening or concerning symptoms Prescriptions: No Action gabapentin [Neurontin] 300 MG capsule 600 mg PO HS Qty: 0 RF: 0 tramadol 50 MG tablet 50 mg PO BID Qty: 0 RF: 0 gabapentin 100 MG capsule 100 mg PO BID Qty: 0 RF: 0 valacyclovir 1,000 MG tablet 500 mg PO QDAY Qty: 0 RF: 0 warfarin [Coumadin] 5 MG tablet 5 mg PO QDAYPM Qty: 20 RF: 0 levothyroxine 25 mcg Capsule 25 mcg PO SEEINSTR RF: 0 metoprolol tartrate 25 MG tablet 50 mg PO BID RF: 0 acetaminophen 325 mg Tablet 975 mg PO TID Qty: 60 RF: 0 docusate sodium 100 mg Capsule 100 mg PO BID Qty: 60 RF: 0 tramadol 50 mg Tablet 50 mg PO Q4HR PRN (Reason: prn pain) Qty: 40 RF: 0 ondansetron HCl [Zofran] 4 mg tablet 4 mg PO Q6-8H PRN (Reason: nausea and vomiting) Qty: 30 RF: 0 Referrals: Mary Rodriguez PA-C [Primary Care Provider] -
--- NOTE | 2020-07-07 10:17 | DI.CT.S_ITS ---
PROCEDURE: CT HEAD/BRAIN WO CON INDICATIONS: fall on coumadin TECHNIQUE: Noncontrast 4.5 mm thick angled axial sections acquired from the foramen magnum to the vertex, with coronal and sagittal reformats. For radiation dose reduction, the following was used: automated exposure control, adjustment of mA and/or kV according to patient size. COMPARISON: None. FINDINGS: Image quality: Excellent. CSF spaces: Basal cisterns are patent. No extra-axial fluid collections. The ventricles are symmetric in size and shape. Brain: No intracranial bleeds or masses. There is cerebral volume loss for age, with resultant ventricular and sulcal prominence. There are periventricular and deep white matter chronic small vessel ischemic changes. There is intracranial internal carotid artery atherosclerosis. Skull and face: Calvarium and visualized facial bones appear intact, without suspicious lesions. Small right frontal scalp contusion. Sinuses: Small mucous retention cyst versus polyps noted in the right maxillary sinus. The mastoids are clear. IMPRESSION: No acute intracranial disease process. Dictated by: Clara Schwarz MD, PhD on 07/07/2020 at 10:33 Approved by: Clara Schwarz MD, PhD on 07/07/2020 at 10:35
--- NOTE | 2020-07-07 11:21 | DI.RAD.S_ITS ---
PROCEDURE: XR HAND RT MIN 3V INDICATIONS: fall TECHNIQUE: 3 views of the hand(s) acquired. COMPARISON: None. FINDINGS: Bones: No fractures or dislocations. Carpal bones are normally aligned. No suspicious bony lesions. Moderate degenerative joint disease. There is osteopenia. Triangular fibrocartilage calcification. Soft tissues: No suspicious soft tissue calcifications. Soft tissue swelling. IMPRESSION: 1. No acute osseous abnormalities. If clinical symptoms persist or clinical suspicion for pathology is high, a repeat examination in 7-10 days, or advanced imaging such as CT or MRI is suggested for further evaluation. Dictated by: Bennie Watkins M.D. on 07/07/2020 at 13:33 Approved by: Bennie Watkins M.D. on 07/07/2020 at 13:38
[2020-07-07] MEDS: TET,DIPH,PERTUSS(ACELL),VAC/PF 0.5 ML SYRINGE IM (11:23)
[2020-07-07] MEDS: GABAPENTIN 100 MG CAPSULE PO (12:28)
[2020-07-07 12:30] VITALS: O2SAT 97
[2020-07-07 12:31] VITALS: BP 165/72; PULSE 61; RESP 16; O2SAT 97
== END 2020-07-07 13:42 | disposition home or self-care (01) ==
PROVIDERS: Emergency Provider Emergency Medicine; PCP Student in an Organized Health Care Education/Training Program
DX: S09.90XA Unspecified injury of head, initial encounter (principal); S61.411A Laceration without foreign body of right hand, initial encounter; I48.91 Unspecified atrial fibrillation; Z79.01 Long term (current) use of anticoagulants; W19.XXXA Unspecified fall, initial encounter; Z23 Encounter for immunization
CPT/HCPCS: 70450; 72125; 73130; 81003; 90471; 93005; 93010; 99284; 99285; 90715

== ENCOUNTER → 2020-11-25 10:54 | Outpatient (CLI) | payer MEDICARE, SELFPAY ==
[2020-11-25 10:42] VITALS: BMI 38.5
--- NOTE | 2020-11-25 10:57 | DI.RAD.S_ITS ---
PROCEDURE: XR KNEE RT 3V INDICATIONS: right knee pain TECHNIQUE: 3 views of the knee were acquired. COMPARISON: [facility], , XR KNEE RT 3V, 11/22/2017, 10:06. FINDINGS: Bones: Generalized decrease in osseous mineralization noted. Mild medial and lateral compartmental joint space narrowing is present with stippled calcification noted in the meniscus. There is severe patellofemoral joint space narrowing with subchondral sclerosis. Small joint effusion noted. Atherosclerotic calcification in the vasculature present. Soft tissues: No joint effusion. No suspicious soft tissue calcifications. IMPRESSION: Severe patellofemoral osteoarthritis. Mild chondrocalcinosis. Osteopenia. Approved by: Alexander Barroso M.D. on 11/25/2020 at 11:31
--- NOTE | 2020-11-25 10:57 | DI.RAD.S_ITS ---
PROCEDURE: XR KNEE LT 3V INDICATIONS: left knee pain TECHNIQUE: 3 views of the knee were acquired. COMPARISON: [facility], CR, XR KNEE LT 3V, 11/22/2017, 10:06. [facility], CR, XR KNEE RT 3V, 11/22/2017, 10:06. FINDINGS: Bones: Generalized decrease in osseous mineralization noted. No fracture or malalignment present. Mild medial lateral compartmental as well as severe patellofemoral joint space narrowing present with subchondral sclerosis. Stippled calcification in the joint space reflects chondrocalcinosis. Soft tissues: Small joint effusion. No suspicious soft tissue calcifications. Atherosclerotic vascular calcification stable. IMPRESSION: Severe patellofemoral osteoarthritis, similar to the prior. Stable chondrocalcinosis. Approved by: Alexander Barroso M.D. on 11/25/2020 at 11:25
== END ==
PROVIDERS: PCP Registered Nurse; Referring Provider Registered Nurse; Visit Provider Registered Nurse
DX: M25.562 Pain in left knee (principal); M25.561 Pain in right knee; M17.0 Bilateral primary osteoarthritis of knee; M11.262 Other chondrocalcinosis, left knee; M11.261 Other chondrocalcinosis, right knee; M85.861 Other specified disorders of bone density and structure, right lower leg
CPT/HCPCS: 73562

== ENCOUNTER → 2020-12-09 09:46 | Outpatient (CLI) | payer MEDICARE, SELFPAY ==
[2020-11-25 10:42] VITALS: BMI 38.5
[2020-12-09 12:20] LABS: Vitamin D 25 Hydroxy (D3) 33.6 ng/mL (30.0-100.0)
== END ==
PROVIDERS: PCP Registered Nurse; Referring Provider Registered Nurse; Visit Provider Registered Nurse
DX: M81.0 Age-related osteoporosis without current pathological fracture (principal); M85.88 Other specified disorders of bone density and structure, other site
CPT/HCPCS: 36415; 77080; 77081; 82306

== ENCOUNTER 2021-02-01 14:59 | Emergency (ER) | payer MEDICARE, MEDICAID, SELFPAY ==
[2021-01-25 11:57] VITALS: BMI 38.5
[2021-02-01] VITALS (14 sets, daily range): BP systolic 129–160; BP diastolic 62–88; PULSE 79–136; RESP 13–38; TEMP 36.6; O2SAT 96–100
--- NOTE | 2021-02-01 15:44 | DI.RAD.S_ITS ---
PROCEDURE: XR CHEST 1V INDICATIONS: chest pain TECHNIQUE: One view of the chest was acquired. COMPARISON: [facility], , CHEST 1 VIEW, 05/23/2016, 9:03. FINDINGS: Surgical changes and devices: None. Lungs and pleura: An incomplete inspiratory result is noted, causing a crowded appearance to the lung markings. No focal infiltrates are seen. No pneumothorax or significant pleural effusions are seen. Mediastinum: Mediastinal contours appear normal. Heart size is normal. Bones and chest wall: No suspicious bony lesions. Dextroconvex cervical thoracic scoliotic curvature is seen. Age-appropriate bony degenerative changes are seen. Overlying soft tissues appear unremarkable. IMPRESSION: Low lung volumes, without an acute abnormality identified. Dictated by: Monty Barrett M.D. on 02/01/2021 at 15:28 Approved by: Monty Barrett M.D. on 02/01/2021 at 15:29
[2021-02-01 15:51] LABS: Add Manual Diff / Slide Review NO; Basophils Absolute Auto 100 /uL (0-100); Basophils Percent Auto 1.1 % (0-2); Eosinophils Absolute Auto 200 /uL (0-450); Eosinophils Percent Auto 3.3 % (2-4); Hematocrit 40.6 % (36-46); Hemoglobin 13.5 g/dL (12.0-16.0); Lymphocytes Absolute Auto 1500 /uL (1100-4500); Lymphocytes Percent Auto 20.1 % (25-40); Mean Corpuscular HGB Conc 33.2 % (30-36); Mean Corpuscular Volume 96.3 fL (80-100); Monocytes Absolute Auto 1000 /uL (0-900); Monocytes Percent Auto 12.9 % (3-14); Neutrophils Absolute Auto 4700 /uL (1500-7000); Neutrophils Percent Auto 62.6 % (50-75); Platelet Count 159 X10^3/uL (150-400); Red Blood Cell Count 4.21 X10^6/uL (4.0-5.2); Red Cell Distribution Width 14.6 % (11.6-14.8); White Blood Cell Count 7.4 X10^3/uL (4.5-11.0)
[2021-02-01 15:53] LABS: INR 2.4 (0.9-1.3); Prothrombin Time 27.5 SECONDS (10.1-12.7)
[2021-02-01 15:56] LABS: PTT Partial Thromboplastin Tim 44 SECONDS (26.4-36.2)
[2021-02-01 16:00] LABS: Alanine Aminotransferase 21 IU/L (<35); Albumin Globulin Ratio 1.2 (1.0-2.8); Alkaline Phosphatase 92 U/L (38-126); Aspartate Aminotransferase 29 IU/L (14-36); BUN Creatinine Ratio 21.7 (6-22); Bilirubin Total 0.3 mg/dL (0.2-1.3); Blood Urea Nitrogen 25 mg/dL (7-17); Calcium 9.4 mg/dL (8.4-10.2); Carbon Dioxide 31 mmol/L (22-32); Chloride 107 mmol/L (98-107); Creatine Kinase 40 U/L (30-135); Estimated Glomerular Filt Rate 45.1 mL/min (>60); Globulin 3.4 g/dL (1.7-4.1); Glucose 99 mg/dL (80-110); HEMOLYSIS 37 (0-50); Lipase 66 U/L (23-300); Potassium 4.6 mmol/L (3.4-5.1); Sodium 142 mmol/L (137-145); Total Protein 7.4 g/dL (6.3-8.2)
[2021-02-01 16:01] LABS: Magnesium 2.2 mg/dL (1.6-2.3)
[2021-02-01 16:12] LABS: Troponin I < 0.012 ng/mL (0.01-0.034)
--- NOTE | 2021-02-01 16:39 | ED_ITS ---
HPI - Arrhythmia/Palpitations General Chief Complaint: Arrhythmia/Palpitations Stated Complaint: lightheaddedness, dizzy, chest pain Time Seen by Provider: 02/01/21 16:38 Source: patient and family Mode of arrival: Ambulatory History of Present Illness HPI narrative: The patient developed palpitations this morning. Palpitations persist. She had slight chest tightness earlier this morning, this does not exist now. She has a history of atrial fib, chronic or recurrent. She is unsure. Her PCM recently cut her metoprolol dose in half. She is anticoagulated. Other medicines are unchanged. She denies recent illness. She has had no headache, sore throat, or fever. She has no change in taste or smell. She has no history of asthma. She has no orthopnea or peripheral edema. She has no GI or complaints. She is followed locally by her PCM. She does not have a scientific glass blower. Related Data Home Medications Medication Instructions Recorded Confirmed gabapentin 100 mg capsule 100 mg PO BID #0 05/22/16 01/25/21 gabapentin 300 mg capsule 600 mg PO HS #0 05/22/16 01/25/21 (Neurontin) valacyclovir 1 gram tablet 500 mg PO QDAY #0 05/22/16 01/25/21 levothyroxine 25 mcg capsule 25 mcg PO SEEINSTR 05/15/18 01/25/21 metoprolol tartrate 25 mg tablet 50 mg PO BID 05/15/18 01/25/21 warfarin 2.5 mg tablet 2.5 mg PO .COMPLEX tab 12/23/20 01/25/21 Previous Rx's Medication Instructions Recorded docusate sodium 100 mg capsule 100 mg PO BID #60 cap 05/31/18 tramadol 50 mg tablet 50 mg PO BID PRN #40 tab 11/28/20 alendronate 70 mg tablet 70 mg PO QWEEK 90 Days #13 tab 01/25/21 Allergies Allergy/AdvReac Type Severity Reaction Status Date / Time celecoxib [From Celebrex] AdvReac Severe Kidney Verified 01/25/21 11:07 failure codeine [CODEINE] AdvReac Mild Nausea, Verified 01/25/21 11:07 vomiting Review of Systems Constitutional Constitutional: Reports as per HPI, Denies anorexia, Denies body ache(s), Denies chills, Denies fatigue, Denies fever(s), Denies headache(s) and Denies weakness Eyes Eyes: Denies change in vision ENT Ears, Nose, Mouth, and Throat: Denies vertigo, Denies dizziness, Denies headache(s) and Denies sore throat Cardiovascular Cardiovascular: Reports chest pain, Denies chest pain with activity, Denies diaphoresis, Denies syncope, Reports rapid heart rate, Denies pedal edema and Denies dyspnea Respiratory Respiratory: Denies chest congestion, Denies dyspnea and Denies wheezing Gastrointestinal Gastrointestinal: Denies abdominal pain, Denies constipation, Denies nausea and Denies vomiting Genitourinary Comments: No urinary symptoms Musculoskeletal Musculoskeletal: Denies arthralgias and Denies back pain Comments: No lower extremity edema. Integumentary/Breasts Skin/Breast: Denies rash Neurologic Neurologic: Denies confusion, Denies vertigo, Denies dizziness, Denies syncope, Denies headache(s) and Denies weakness Psychiatric Psychiatric: Denies confusion and Denies depression Endocrine Endocrine: Denies fatigue Hematologic/Lymphatic On Anticoagulants: Yes (She is on Coumadin.) Allergic/Immunologic Allergic/Immunologic: Denies wheezing Patient History Medical History Atrial fibrillation Chicken pox Chronic back pain Chronic kidney disease DDD (degenerative disc disease), lumbar Edema Former smoker Genital herpes Gout Hearing loss Heart palpitations Hemorrhoid History of urinary incontinence HTN (hypertension) Hypothyroidism Kidney disease (~2015) Left knee pain Neuropathy Osteoarthritis Osteoporosis Pneumonia (05/22/16) Right knee pain Scoliosis Screening for malignant neoplasm of colon Shoulder pain Skin cancer Warfarin anticoagulation Surgical History Anesthesia History of carpal tunnel release (~2008) History of hysterectomy (~01/1990) History of left hip replacement (~2016) Hx of bladder repair surgery (~1992) Hx of cholecystectomy (~1979) Hx of shoulder surgery (~2006) Status post bilateral cataract extraction (~2004) Family History Father Cancer Mother Suicide Brother Hypertension Sister Pneumonia Grandfather Diabetes mellitus Family/Other Cancer Social History household members: none Smoking Status: Former smoker Smoking Status: Former smoker alcohol intake frequency: 0-2 drinks per day Substance Use Type: does not use Exam Initial Vital Signs Initial Vital Signs: Vital Signs Temperature 97.8 F 02/01/21 15:07 Pulse Rate 79 02/01/21 15:07 Respiratory Rate 22 02/01/21 15:07 Blood Pressure 150/88 H 02/01/21 15:07 Pulse Oximetry 100 02/01/21 15:07 Const General: cooperative, healthy appearing and comfortable [facility] Head: normal to inspection, normocephalic and atraumatic Eyes Conjunctivae: conjunctivae normal Sclera: sclerae normal Pupils: PERRL EOM: EOM intact bilaterally Neck Neck: No JVD Chest Chest: No tenderness Resp Auscultation: clear to auscultation bilaterally Cardio Rate: tachycardic Rhythm: abnormal rhythm irregularly irregular Heart Sounds: S1 normal, S2 normal and no murmurs GI Inspection: non-distended Palpation: soft and No tender Auscultation: normal bowel sounds Back/Spine/Pelvis Back: No CVA tenderness Skin General: no rashes or lesions noted Neuro General: patient alert, patient awake, patient oriented x3 and no focal motor deficits Cranial Nerves: CN's II-XI intact bilaterally Cognition: normal cognition Speech: speech normal Extrem General: normal to inspection, no pedal edema and no calf tenderness Psych Mental Status: mental status grossly normal Course Course Course Narrative: The patient's beta-morena was lesion reduced. She is in AFib with RVR, rate varying from 110s to 140s. I gave her IV metoprolol, with little effect. Heart rate slowed to 90s with IV Cardizem. I did give her 50 mg of metoprolol orally. Her heart rate is now sustained in the 90s. Labs are reassuring. EKG and chest x-ray reassuring. Her dose will be increased to 50 mg b.i.d., back to her prior normal dose. She has follow-up with a PCM next 1-2 weeks to review her meds. Orders Ordered: ED Orders 02/01/21 15:35 Complete Blood Count AUTO DIFF Stat Comprehensive Metabolic Panel Stat Lipase Stat Magnesium Stat Partial Thromboplastin Time Stat Prothrombin Time INR Stat Troponin & CK Cardiac Panel Stat 02/01/21 15:44 XR chest 1V Stat Discontinued Medications Digoxin (Digoxin 500 Mcg/2 Ml Ampul) 500 mcg IV NOW ONE Stop: 02/01/21 18:24 Last Admin: 02/01/21 18:54 Dose: Not Given Documented by: JING Diltiazem HCl (Diltiazem 5 Mg/Ml Sdv) 10 mg IV NOW ONE Stop: 02/01/21 17:44 Last Admin: 02/01/21 18:45 Dose: 10 mg Documented by: JING Metoprolol Tartrate (Metoprolol Tartrate 5 Mg/5 Ml Inj) 5 mg IV Q5M SORAYA Stop: 02/01/21 16:56 Last Admin: 02/01/21 17:30 Dose: 5 mg Documented by: Admin: 02/01/21 17:18 Dose: 5 mg Documented by: Admin: 02/01/21 16:52 Dose: 5 mg Documented by: TOYA Metoprolol Tartrate (Metoprolol Ir 25 Mg Tablet) 50 mg PO NOW ONE Stop: 02/01/21 19:27 Last Admin: 02/01/21 19:35 Dose: 50 mg Documented by: MARVIN Vital Signs Vital signs: Vital Signs - 8 hr 02/01/21 15:07 02/01/21 16:01 02/01/21 16:10 Temperature 97.8 F Pulse Rate 79 136 H 122 H Respiratory Rate 22 34 H 25 H Blood Pressure 150/88 H 129/87 Pulse Oximetry 100 96 02/01/21 16:30 02/01/21 17:00 02/01/21 17:30 Temperature Pulse Rate 120 H 107 H 113 H Respiratory Rate 13 14 15 Blood Pressure 134/64 141/71 H 160/80 H Pulse Oximetry 97 02/01/21 18:00 02/01/21 18:01 02/01/21 18:30 Temperature Pulse Rate 121 H 110 H 116 H Respiratory Rate 32 H 38 H 22 Blood Pressure 145/63 H 151/87 H Pulse Oximetry 02/01/21 19:00 02/01/21 19:01 02/01/21 19:30 Temperature Pulse Rate 82 80 88 Respiratory Rate 23 26 H 20 Blood Pressure 156/87 H Pulse Oximetry 02/01/21 19:31 Temperature Pulse Rate 97 H Respiratory Rate 20 Blood Pressure 143/62 H Pulse Oximetry MDM - Arrhythmia/Palpitations Lab Data Result diagrams: 02/01/21 15:35 02/01/21 15:35 Labs: Lab Results 02/01/21 02/01/21 02/01/21 Range/Units 15:35 15:35 15:35 WBC 7.4 (4.5-11.0) X10^3/uL RBC 4.21 (4.0-5.2) X10^6/uL Hgb 13.5 (12.0-16.0) g/dL Hct 40.6 (36-46) % MCV 96.3 (80-100) fL MCH 32.0 (26-34) PG MCHC 33.2 (30-36) % RDW 14.6 (11.6-14.8) % Plt Count 159 (150-400) X10^3/uL Neut % (Auto) 62.6 (50-75) % Lymph % (Auto) 20.1 L (25-40) % Tama % (Auto) 12.9 (3-14) % Eos % (Auto) 3.3 (2-4) % Baso % (Auto) 1.1 (0-2) % Neut # (Auto) 4700 (4412-6520) /uL Lymph # (Auto) 1500 (2045-0111) /uL Tama # (Auto) 1000 H (0-900) /uL Eos # (Auto) 200 (0-450) /uL Baso # (Auto) 100 (0-100) /uL PT 27.5 H (10.1-12.7) SECONDS INR 2.4 H (0.9-1.3) APTT 44 H (26.4-36.2) SECONDS Sodium 142 (137-145) mmol/L Potassium 4.6 (3.4-5.1) mmol/L Chloride 107 (98-107) mmol/L Carbon Dioxide 31 (22-32) mmol/L BUN 25 H (7-17) mg/dL Creatinine 1.15 H (0.52-1.04) mg/dL Estimated GFR 45.1 L (>60) mL/min BUN/Creatinine Ratio 21.7 (6-22) Glucose 99 (80-110) mg/dL Calcium 9.4 (8.4-10.2) mg/dL Magnesium (1.6-2.3) mg/dL Total Bilirubin 0.3 (0.2-1.3) mg/dL AST 29 (14-36) IU/L ALT 21 (<35) IU/L Alkaline Phosphatase 92 (38-126) U/L Total Creatine Kinase 40 (30-135) U/L CK-MB (CK-2) TNP CK-MB (CK-2) Rel Index TNP Troponin I < 0.012 (0.01-0.034) ng/mL Total Protein 7.4 (6.3-8.2) g/dL Albumin 4.0 (3.5-5.0) g/dL Globulin 3.4 (1.7-4.1) g/dL Albumin/Globulin Ratio 1.2 (1.0-2.8) Lipase 66 (23-300) U/L 02/01/21 Range/Units 15:35 WBC (4.5-11.0) X10^3/uL RBC (4.0-5.2) X10^6/uL Hgb (12.0-16.0) g/dL Hct (36-46) % MCV (80-100) fL MCH (26-34) PG MCHC (30-36) % RDW (11.6-14.8) % Plt Count (150-400) X10^3/uL Neut % (Auto) (50-75) % Lymph % (Auto) (25-40) % Tama % (Auto) (3-14) % Eos % (Auto) (2-4) % Baso % (Auto) (0-2) % Neut # (Auto) (9140-1068) /uL Lymph # (Auto) (9517-4915) /uL Tama # (Auto) (0-900) /uL Eos # (Auto) (0-450) /uL Baso # (Auto) (0-100) /uL PT (10.1-12.7) SECONDS INR (0.9-1.3) APTT (26.4-36.2) SECONDS Sodium (137-145) mmol/L Potassium (3.4-5.1) mmol/L Chloride (98-107) mmol/L Carbon Dioxide (22-32) mmol/L BUN (7-17) mg/dL Creatinine (0.52-1.04) mg/dL Estimated GFR (>60) mL/min BUN/Creatinine Ratio (6-22) Glucose (80-110) mg/dL Calcium (8.4-10.2) mg/dL Magnesium 2.2 (1.6-2.3) mg/dL Total Bilirubin (0.2-1.3) mg/dL AST (14-36) IU/L ALT (<35) IU/L Alkaline Phosphatase (38-126) U/L Total Creatine Kinase (30-135) U/L CK-MB (CK-2) CK-MB (CK-2) Rel Index Troponin I (0.01-0.034) ng/mL Total Protein (6.3-8.2) g/dL Albumin (3.5-5.0) g/dL Globulin (1.7-4.1) g/dL Albumin/Globulin Ratio (1.0-2.8) Lipase (23-300) U/L Imaging Data Chest x-ray: Radiologist's Impresson: No acute cardiopulmonary findings. ECG Data Attestation: I personally reviewed and interpreted this ECG as follows: (AFib with RVR, rate 118 beats per minute. Nonspecific ST T wave changes. No acute ST elevation.) Discharge Plan Departure Patient Disposition: Home Clinical Impression: Atrial fibrillation with RVR Instructions: DI for Atrial Fibrillation Activity Restrictions/Additional Instructions: Increased the Metoprolol dose to 50 mg 2 times daily. Keep all other medications at current doses. Contact her PCM for follow-up. Return here if you have chest discomfort, difficulty breathing, or weakness/dizziness. Prescriptions: No Action gabapentin [Neurontin] 300 MG capsule 600 mg PO HS Qty: 0 RF: 0 gabapentin 100 MG capsule 100 mg PO BID Qty: 0 RF: 0 valacyclovir 1,000 MG tablet 500 mg PO QDAY Qty: 0 RF: 0 tramadol 50 mg tablet 50 mg PO BID PRN (Reason: prn pain) Qty: 40 RF: 0 alendronate 70 mg tablet 70 mg PO QWEEK 90 Days Qty: 13 RF: 0 warfarin 2.5 mg tablet 2.5 mg PO .COMPLEX RF: 0 levothyroxine 25 mcg Capsule 25 mcg PO SEEINSTR RF: 0 metoprolol tartrate 25 MG tablet 50 mg PO BID RF: 0 docusate sodium 100 mg Capsule 100 mg PO BID Qty: 60 RF: 0 Referrals: Cherelle Huerta ARNP [Primary Care Provider] -
[2021-02-01] MEDS: METOPROLOL TARTRATE 5 MG/5 ML INJ IV ×3 (16:52→17:30)
[2021-02-01] MEDS: dilTIAZem 5 MG/ML SDV 10 MG IV (18:45)
[2021-02-01] MEDS: METOPROLOL IR 25 MG TABLET 50 MG PO (19:35)
== END 2021-02-01 20:20 | disposition home or self-care (01) ==
PROVIDERS: Emergency Provider Emergency Medicine; PCP Registered Nurse; Referring Provider Registered Nurse
DX: I48.91 Unspecified atrial fibrillation (principal); Z79.01 Long term (current) use of anticoagulants
CPT/HCPCS: 36415; 71045; 80053; 82550; 83690; 83735; 84484; 85025; 85610; 85730; 93005; 93010; 96374; 96375; 99284

== ENCOUNTER → 2021-05-03 08:46 | Outpatient (CLI) | payer MEDICARE, SELFPAY ==
[2021-01-25 11:57] VITALS: BMI 38.5
[2021-05-03 09:40] LABS: INR 1.7 (0.9-1.3); Prothrombin Time 19.4 SECONDS (10.1-12.7)
[2021-05-03 10:09] LABS: Alanine Aminotransferase 19 IU/L (<35); Albumin 3.8 g/dL (3.5-5.0); Albumin Globulin Ratio 1.1 (1.0-2.8); Alkaline Phosphatase 82 U/L (38-126); Aspartate Aminotransferase 23 IU/L (14-36); Bilirubin Total 0.6 mg/dL (0.2-1.3); Blood Urea Nitrogen 30 mg/dL (7-17); Calcium 9.4 mg/dL (8.4-10.2); Carbon Dioxide 31 mmol/L (22-32); Chloride 106 mmol/L (98-107); Cholesterol 141 mg/dL (140-199); Estimated Glomerular Filt Rate 42.8 mL/min (>60); Globulin 3.5 g/dL (1.7-4.1); Glucose 92 mg/dL (80-110); HDL Cholesterol 47 mg/dL (40-60); HEMOLYSIS < 15 (0-50); LDL Cholesterol Calculated 67 mg/dL (<100); Potassium 4.2 mmol/L (3.4-5.1); Sodium 140 mmol/L (137-145); Total Protein 7.3 g/dL (6.3-8.2); Triglycerides 133 mg/dL (35-150)
[2021-05-03 10:38] LABS: Thyroid Stimulating Hormone 4.16 uIU/mL (0.47-4.68)
== END ==
PROVIDERS: PCP Registered Nurse; Referring Provider Registered Nurse; Visit Provider Registered Nurse
DX: I48.91 Unspecified atrial fibrillation (principal); E03.9 Hypothyroidism, unspecified; Z79.01 Long term (current) use of anticoagulants; R00.2 Palpitations; N18.30 Chronic kidney disease, stage 3 unspecified
CPT/HCPCS: 36415; 80053; 80061; 84443; 85610

== ENCOUNTER → 2021-06-28 12:00 | Outpatient (CLI) | payer MEDICARE, MEDICAID, SELFPAY ==
[2021-01-25 11:57] VITALS: BMI 38.5
[2021-06-28 13:33] LABS: BUN Creatinine Ratio 27.1 (6-22); Blood Urea Nitrogen 29 mg/dL (7-17); Calcium 9.4 mg/dL (8.4-10.2); Carbon Dioxide 29 mmol/L (22-32); Chloride 107 mmol/L (98-107); Estimated Glomerular Filt Rate 48.9 mL/min (>60); Glucose 83 mg/dL (80-110); HEMOLYSIS < 15 (0-50); Potassium 4.6 mmol/L (3.4-5.1); Sodium 142 mmol/L (137-145)
== END ==
PROVIDERS: PCP Nurse Practitioner; Referring Provider Internal Medicine Cardiovascular Disease; Visit Provider Internal Medicine Cardiovascular Disease
DX: I73.9 Peripheral vascular disease, unspecified (principal)
CPT/HCPCS: 36415; 80048

== ENCOUNTER → 2021-07-05 10:47 | Outpatient (CLI) | payer MEDICARE, MEDICAID, SELFPAY ==
[2021-01-25 11:57] VITALS: BMI 38.5
--- NOTE | 2021-07-05 | DI.CT.S_ITS ---
PROCEDURE: CT ANGIO ABD AORTA RUNOFF INDICATIONS: Peripheral vascular disease, unspecified TECHNIQUE: After the administration of intravenous contrast, 2.5 mm sections acquired from T12 to the feet, with optional delayed image acquisition from the knees to the feet. 3-dimensional maximum intensity projection (MIP) coronal and sagittal reformats, and/or 3-dimensional volume rendering reformatting was then performed. For radiation dose reduction, the following was used: automated exposure control. COMPARISON: [facility] Ultrasound, US, US ARTERIAL LOWER EXTREMITY DOPPLER BILATERAL, 02/10/2021, 14:08. FINDINGS: Image quality: Excellent. Extravascular tissues: Lung bases are clear. Cardiomegaly with left atrial and right atrial enlargement. Liver is normal in size and enhancement. Gallbladder is surgically absent . Biliary system is non dilated. Pancreas enhances normally. Spleen is normal in size and enhancement. No adrenal nodules. Right kidney is quite small and shrunken. Left kidney is normal in size without hydronephrosis or mass. Non opacified bowel loops demonstrate normal wall thickness and enhancement. No free fluid or air. No retroperitoneal or mesenteric adenopathy. No ventral hernias. Bladder wall thickness is normal. No inguinal hernias or adenopathy. No suspicious bony lesions. No vertebral body compression fractures. There is extensive lumbar degenerative change. Abdominal aorta: No hemodynamically significant stenosis. No aneurysm. No dissection. Moderate SMA stenosis. Celiac grossly patent. Right lower extremity: No significant stenosis involving the common iliac, external iliac, and common femoral. There is diffuse atherosclerotic calcification. There is a moderate focal mid SFA stenosis and a distal SFA stenosis. There is diffuse [id number] popliteal disease, with a moderate infrageniculate popliteal stenosis. There is probable three-vessel continuous, diseased runoff. Left lower extremity: No significant iliac stenotic disease or common femoral stenotic disease. Moderate mid SFA stenosis. Popliteal patent. Probable three-vessel diseased runoff. IMPRESSION: 1. Cardiomegaly. 2. Small, shrunken right kidney. 3. Severe lumbar degenerative change. 4. No significant aortoiliac stenotic disease. 5. Right lower extremity runoff significant for a focal moderate mid SFA and distal SFA stenosis, diffuse popliteal disease with moderate infrageniculate popliteal stenosis, and probable three-vessel diseased runoff. 6. Left lower extremity runoff significant for a focal moderate mid SFA stenosis and probable three-vessel diseased runoff. Dictated by: Brennen Quinn M.D. on 07/05/2021 at 12:12 Approved by: Brennen Quinn M.D. on 07/05/2021 at 12:24
== END ==
PROVIDERS: PCP Nurse Practitioner; Referring Provider Internal Medicine Cardiovascular Disease; Visit Provider Internal Medicine Cardiovascular Disease
DX: I70.203 Unspecified atherosclerosis of native arteries of extremities, bilateral legs (principal); I51.7 Cardiomegaly; N26.1 Atrophy of kidney (terminal); M47.816 Spondylosis without myelopathy or radiculopathy, lumbar region
CPT/HCPCS: 75635; Q9967

== ENCOUNTER → 2021-08-09 10:29 | Outpatient (CLI) | payer MEDICARE, MEDICAID, SELFPAY ==
[2021-01-25 11:57] VITALS: BMI 38.5
[2021-08-09 11:59] LABS: Basophils Absolute Auto 100 /uL (0-100); Basophils Percent Auto 0.9 % (0-2); Eosinophils Absolute Auto 200 /uL (0-450); Eosinophils Percent Auto 2.4 % (2-4); Hematocrit 41.3 % (36-46); Lymphocytes Absolute Auto 1200 /uL (1100-4500); Lymphocytes Percent Auto 19.1 % (25-40); Mean Corpuscular HGB Conc 33.8 % (30-36); Mean Corpuscular Volume 97.6 fL (80-100); Monocytes Absolute Auto 600 /uL (0-900); Monocytes Percent Auto 9.8 % (3-14); Neutrophils Absolute Auto 4300 /uL (1500-7000); Neutrophils Percent Auto 67.8 % (50-75); Red Blood Cell Count 4.24 X10^6/uL (4.0-5.2); White Blood Cell Count 6.4 X10^3/uL (4.5-11.0)
[2021-08-09 12:05] LABS: Hemoglobin A1C% w Est Avg Glu 5.4 % (4.0-6.0)
[2021-08-09 12:24] LABS: Add Manual Diff / Slide Review SLIDE REVIEW; Platelet Count 139 X10^3/uL (150-400)
[2021-08-09 12:29] LABS: Cholesterol 145 mg/dL (140-199); HDL Cholesterol 55 mg/dL (40-60); LDL Cholesterol Calculated 68 mg/dL (<100); Triglycerides 110 mg/dL (35-150)
[2021-08-09 12:40] LABS: Free T4, Direct Thyroxine 1.28 ng/dL (0.78-2.19)
[2021-08-09 12:53] LABS: Thyroid Stimulating Hormone 2.77 uIU/mL (0.47-4.68)
== END ==
PROVIDERS: PCP Nurse Practitioner; Referring Provider Internal Medicine Cardiovascular Disease; Visit Provider Internal Medicine Cardiovascular Disease
DX: I48.91 Unspecified atrial fibrillation (principal); Z13.1 Encounter for screening for diabetes mellitus; Z13.220 Encounter for screening for lipoid disorders
CPT/HCPCS: 36415; 80061; 83036; 84439; 84443; 85025

== ENCOUNTER → 2021-12-06 11:43 | Outpatient (CLI) | payer MEDICARE, MEDICAID, SELFPAY ==
[2021-01-25 11:57] VITALS: BMI 38.5
[2021-12-06 12:40] LABS: Alanine Aminotransferase 17 IU/L (<35); Albumin 3.8 g/dL (3.5-5.0); Albumin Globulin Ratio 1.2 (1.0-2.8); Alkaline Phosphatase 86 U/L (38-126); Aspartate Aminotransferase 22 IU/L (14-36); BUN Creatinine Ratio 21.2 (6-22); Bilirubin Total 0.4 mg/dL (0.2-1.3); Blood Urea Nitrogen 22 mg/dL (7-17); Calcium 9.2 mg/dL (8.4-10.2); Carbon Dioxide 27 mmol/L (22-32); Chloride 104 mmol/L (98-107); Estimated Glomerular Filt Rate 53 mL/min (>60); Globulin 3.3 g/dL (1.7-4.1); Glucose 79 mg/dL (80-110); HEMOLYSIS < 15 (0-50); Magnesium 2.1 mg/dL (1.6-2.3); Potassium 4.6 mmol/L (3.4-5.1); Sodium 139 mmol/L (137-145); Total Protein 7.1 g/dL (6.3-8.2)
[2021-12-06 12:46] LABS: NT-proBNP (BNP-Adult 18+) 1870 pg/mL (<450)
== END ==
PROVIDERS: PCP Nurse Practitioner; Referring Provider Nurse Practitioner; Visit Provider Nurse Practitioner
DX: I50.9 Heart failure, unspecified (principal); E87.6 Hypokalemia; I48.91 Unspecified atrial fibrillation; R60.9 Edema, unspecified; T50.2X5A Adverse effect of carbonic-anhydrase inhibitors, benzothiadiazides and other diuretics, initial encounter
CPT/HCPCS: 36415; 80053; 83735; 83880

== ENCOUNTER → 2022-02-14 12:30 | Outpatient (CLI) | payer MEDICARE, MEDICAID, SELFPAY ==
[2021-01-25 11:57] VITALS: BMI 38.5
--- NOTE | 2022-02-14 | DI.ECHO.S_ITS ---
[facility]---------[facility] +---------+ : : [address] [address] : : : : [id number] : : : : Phone: [phone]---------+ Echocardiogram Report + + :Name: KATEY MALLOY Study Date: 02/14/2022 Height: 60 in : :[facility] ReadingLocation: Weight: 289 lb : : Gender: Female BSA: 2.2 m2 : :: 1935 Age: 86 yrs BP: 124/92 mmHg: :Reason For Study: ATRIAL FIBRILLATION : :Ordering Physician: EMETERIO, : :ALFONSO Performed By: Linsey Lubin : :Referring: ALFONSO LAIRD : + + Interpretation Summary The ejection fraction is estimated to be 50-55%. The left atrium is severely dilated. There is mild mitral annular calcification. There is moderate mitral regurgitation. The aortic valve is mildly calcified. There is mild to moderate aortic stenosis. The calculated aortic valve area is 1.3 cm2. The right ventricular systolic pressure is estimated to be at least 27 mmHg based on an estimated right atrial pressure of 3 mm Hg. Compared to the prior echo study, there has been an increase in the severity of mitral regurgitation. Procedure: A two-dimensional transthoracic echocardiogram with color flow and Doppler was performed. The study quality was technically adequate. Comparison is made with the echocardiogram of 05/22/2016. The patient was in atrial fibrillation with heart rates between 70-105 bpm during the exam. Left Ventricle: The left ventricle is normal in size and wall thickness. The ejection fraction is estimated to be 50-55%. There are no focal wall motion abnormalities. Diastolic function could not be accurately assessed due to atrial fibrillation. Right Ventricle: The right ventricle is mildly dilated. The right ventricular systolic function is normal. Atria: The left atrium is severely dilated. Right atrial size is normal. There is no Doppler evidence for an interatrial shunt. Mitral Valve: There is mild mitral annular calcification. There is moderate mitral regurgitation. Compared to the prior echo study, there has been an increase in the severity of mitral regurgitation. Aortic Valve: The aortic valve is mildly calcified. The aortic valve is trileaflet. There is moderate aortic valve sclerosis. There is mild to moderate aortic stenosis. The peak aortic velocity is 2.0 m/sec. The aortic valve mean gradient is 9 mmHg. The calculated aortic valve area is 1.3 cm2. There is mild aortic regurgitation. Tricuspid Valve: The tricuspid valve leaflets are thin and pliable. There is mild to moderate tricuspid regurgitation. The right ventricular systolic pressure is estimated to be at least 27 mmHg based on an estimated right atrial pressure of 3 mm Hg. Pulmonic Valve: The pulmonic valve leaflets are thin and pliable; valve motion is normal. There is no pulmonic valvular regurgitation. Great Vessels: The aortic root is normal size. The ascending aorta is mild- moderately enlarged. The IVC is of normal diameter and collapses greater than 50% with a sniff. This suggests a low right atrial pressure of 3 mm Hg. Pericardium/ Pleura There is no pericardial effusion. There is no pleural effusion. MMode/2D Measurements & Calculations LVIDd: 4.5 cm LVOT diam: 2.0 cm LVIDs: 3.3 cm Ao root diam: 3.3 cm FS: 27.2 % asc Aorta Diam: 4.0 cm IVSd: 0.90 cm Ao Arch Diam (Prox Trans): 1.4 cm LVPWd: 0.94 cm LV merrill. diameter/BSA (cm/m^2): 2.1 LV sys. diameter/BSA (cm/m^2): 1.5 LA A2 area: 31.3 cm2 RA long axis: 6.1 cm LA A4 area: 25.8 cm2 RA area: 21.0 cm2 LA length (vol): 6.4 cm RA vol: 61.3 ml LA vol: 107.6 ml RA : 28.1 ml/m2 LA vol index: 49.3 ml/m2 IVC diam: 1.8 cm RVD1 (basal): 4.3 cm RVD2 (mid): 3.7 cm TAPSE: 1.7 cm Doppler Measurements & Calculations Ao V2 max: 200.5 cm/sec LVOT Max Evangelist: 84.3 cm/sec Ao V2 mean: 138.2 cm/sec LV V1 max P.8 mmHg Ao max P.2 mmHg LV V1 VTI: 18.1 cm Ao mean P.4 mmHg ANYA(I,D): 1.2 cm2 Ao V2 VTI: 45.4 cm ANYA(V,D): 1.3 cm2 sev ratio: 0.40 ANYA indexed to BSA (cm^2/m^2): 0.57 MV E max evangelist: 99.8 cm/sec TR max evangelist: 243.6 cm/sec MV A max evangelist: 2.1 cm/sec TR max P.7 mmHg MV E/A: 48.2 PA pr(Accel): 37.9 mmHg Med Peak E' Evangelist: 6.4 cm/sec E/E' med: 15.6 Lat Peak E' Evangelist: 10.8 cm/sec E/E' lat: 9.2 E/e' average: 12.4 MV dec time: 0.16 sec MR ERO: 0.22 cm2 MR PISA: 2.9 cm2 SV(LVOT): 56.6 ml MR flow rate: 106.9 cm3/sec MR PISA radius: 0.68 cm Reading Physician:10:45 AM
== END ==
PROVIDERS: PCP Nurse Practitioner; Referring Provider Internal Medicine Cardiovascular Disease; Visit Provider Internal Medicine Cardiovascular Disease
DX: I48.0 Paroxysmal atrial fibrillation (principal); I08.3 Combined rheumatic disorders of mitral, aortic and tricuspid valves; I77.89 Other specified disorders of arteries and arterioles
CPT/HCPCS: 93306

== ENCOUNTER → 2022-04-11 10:24 | Outpatient (CLI) | payer MEDICARE, MEDICAID, SELFPAY ==
[2021-01-25 11:57] VITALS: BMI 38.5
[2022-04-11 11:25] LABS: BUN Creatinine Ratio 18.5 (6-22); Blood Urea Nitrogen 20 mg/dL (7-17); Calcium 9.1 mg/dL (8.4-10.2); Carbon Dioxide 31 mmol/L (22-32); Chloride 102 mmol/L (98-107); Estimated Glomerular Filt Rate 50 mL/min (>60); Glucose 83 mg/dL (80-110); HEMOLYSIS < 15 (0-50); Potassium 4.2 mmol/L (3.4-5.1); Sodium 140 mmol/L (137-145)
== END ==
PROVIDERS: PCP Nurse Practitioner; Referring Provider Internal Medicine Cardiovascular Disease; Visit Provider Internal Medicine Cardiovascular Disease
DX: I10 Essential (primary) hypertension (principal)
CPT/HCPCS: 36415; 80048

== ENCOUNTER → 2022-05-09 10:08 | Outpatient (CLI) | payer MEDICARE, MEDICAID, SELFPAY ==
[2021-01-25 11:57] VITALS: BMI 38.5
[2022-05-09 11:07] LABS: BUN Creatinine Ratio 18.6 (6-22); Blood Urea Nitrogen 18 mg/dL (7-17); Calcium 8.6 mg/dL (8.4-10.2); Carbon Dioxide 28 mmol/L (22-32); Chloride 98 mmol/L (98-107); Estimated Glomerular Filt Rate 57 mL/min (>60); Glucose 91 mg/dL (80-110); HEMOLYSIS 59 (0-50); Potassium 4.6 mmol/L (3.4-5.1); Sodium 137 mmol/L (137-145)
== END ==
PROVIDERS: PCP Nurse Practitioner; Referring Provider Internal Medicine Cardiovascular Disease; Visit Provider Internal Medicine Cardiovascular Disease
DX: I38 Endocarditis, valve unspecified (principal)
CPT/HCPCS: 36415; 80048

== ENCOUNTER → 2022-07-04 12:32 | Outpatient (CLI) | payer MEDICARE, MEDICAID, SELFPAY ==
[2021-01-25 11:57] VITALS: BMI 38.5
--- NOTE | 2022-07-04 | DI.ECHO.S_ITS ---
[facility]---------+ [facility] +---------+ : : [address] : : : : [id number] : : : : Phone: [phone]+ Echocardiogram Report + + :Name: KATEY MALLOY Study Date: 07/04/2022 Height: 60 in : :[facility] ReadingLocation: Weight: 190 lb : : Gender: Female BSA: 1.8 m2 : :: 1935 Age: 87 yrs BP: 110/80 mmHg: :Reason For Study: EDEMA : :Ordering Physician: CYNDY, : :CASANDRA Mosher Performed By: ANGLE PÉREZ : :Referring: CASANDRA LEAL : + + Interpretation Summary The ejection fraction is estimated to be 50-55%. Diastolic function could not be accurately assessed due to atrial fibrillation. The right ventricle is mildly dilated. The right ventricular systolic function is normal. Both atria are severely dilated. There is moderate mitral regurgitation. There is mild to moderate aortic stenosis. The dimensionless index is 0.42. Suspect low-flow, low gradient. There is mild aortic regurgitation. There is mild to moderate tricuspid regurgitation. The right ventricular systolic pressure is estimated to be at least 34 mmHg based on an estimated right atrial pressure of 3 mm Hg. The ascending aorta is mild-moderately enlarged. Compared to the prior study dated 02/14/2022, no significant change. Procedure: A two-dimensional transthoracic echocardiogram with color flow and Doppler was performed. The study quality was technically adequate. Comparison is made with the echocardiogram of 02/14/2022. The patient was in atrial fibrillation with heart rates between 72-108 bpm during the exam. Left Ventricle: The left ventricle is normal in size and wall thickness. The ejection fraction is estimated to be 50-55%. Diastolic function could not be accurately assessed due to atrial fibrillation. Right Ventricle: The right ventricle is mildly dilated. The right ventricular systolic function is normal. Atria: Both atria are severely dilated. There is no Doppler evidence for an interatrial shunt. Mitral Valve: There is moderate mitral annular calcification. There is moderate mitral regurgitation. Aortic Valve: The aortic valve is mildly calcified. The aortic valve is trileaflet. There is moderately reduced leaflet mobility. There is mild to moderate aortic stenosis. The peak aortic velocity is 2 m/sec. The aortic valve mean gradient is 11 mmHg. This is unchanged compared to the previous study. The dimensionless index is 0.42. There is mild aortic regurgitation. Tricuspid Valve: The tricuspid valve is normal. There is mild to moderate tricuspid regurgitation. The right ventricular systolic pressure is estimated to be at least 34 mmHg based on an estimated right atrial pressure of 3 mm Hg. Pulmonic Valve: The pulmonic valve leaflets are thin and pliable; valve motion is normal. There is no pulmonic valvular regurgitation. Great Vessels: The aortic root is normal size. The ascending aorta is mild- moderately enlarged. This is unchanged compared to the previous study. The IVC is of normal diameter and collapses greater than 50% with a sniff. This suggests a low right atrial pressure of 3 mm Hg. Pericardium/ Pleura There is no pericardial effusion. There is no pleural effusion. MMode/2D Measurements & Calculations LVIDd: 2.6 cm LVOT diam: 2.0 cm LVIDs: 1.9 cm Ao root diam: 3.1 cm FS: 28.4 % asc Aorta Diam: 4.0 cm IVSd: 0.93 cm LVPWd: 0.86 cm LV merrill. diameter/BSA (cm/m^2): 1.4 LV sys. diameter/BSA (cm/m^2): 1.0 LA A2 area: 31.7 cm2 RA long axis: 5.8 cm LA A4 area: 27.0 cm2 RA area: 19.0 cm2 LA length (vol): 6.6 cm RA vol: 52.4 ml LA vol: 110.8 ml RA : 28.7 ml/m2 LA vol index: 60.7 ml/m2 IVC diam: 1.2 cm TAPSE: 1.7 cm Doppler Measurements & Calculations Ao V2 max: 189.3 cm/sec LVOT Max Evangelist: 78.5 cm/sec Ao V2 mean: 148.3 cm/sec LV V1 max P.5 mmHg Ao max P.4 mmHg LV V1 VTI: 16.3 cm Ao mean P.3 mmHg ANYA(I,D): 1.2 cm2 Ao V2 VTI: 39.9 cm ANYA(V,D): 1.2 cm2 sev ratio: 0.41 ANYA indexed to BSA (cm^2/m^2): 0.67 MV E max evangelist: 99.9 cm/sec TR max evangelist: 279.6 cm/sec MV A max evangelist: 1.4 cm/sec TR max P.3 mmHg MV E/A: 69.5 PA V2 max: 50.7 cm/sec Med Peak E' Evangelist: 7.5 cm/sec PA V2 mean: 38.4 cm/sec E/E' med: 13.4 PA mean P.63 mmHg Lat Peak E' Evangelist: 8.8 cm/sec PA pr(Accel): 43.0 mmHg E/E' lat: 11.3 E/e' average: 12.4 MV dec time: 0.09 sec SV(LVOT): 49.0 ml Reading Physician:02:59 PM
== END ==
PROVIDERS: PCP Nurse Practitioner; Referring Provider Internal Medicine Cardiovascular Disease; Visit Provider Internal Medicine Cardiovascular Disease
DX: I77.89 Other specified disorders of arteries and arterioles (principal); I08.3 Combined rheumatic disorders of mitral, aortic and tricuspid valves; R60.0 Localized edema
CPT/HCPCS: 93306

== ENCOUNTER → 2022-08-29 09:15 | Outpatient (CLI) | payer MEDICARE, MEDICAID, SELFPAY ==
[2021-01-25 11:57] VITALS: BMI 38.5
[2022-08-29 11:18] LABS: Add Manual Diff / Slide Review NO; Basophils Absolute Auto 100 /uL (0-100); Basophils Percent Auto 0.7 % (0-2); Eosinophils Absolute Auto 100 /uL (0-450); Eosinophils Percent Auto 1.6 % (2-4); Hematocrit 35.4 % (36-46); Hemoglobin 11.9 g/dL (12.0-16.0); Lymphocytes Absolute Auto 1700 /uL (1100-4500); Lymphocytes Percent Auto 19.8 % (25-40); Mean Corpuscular HGB Conc 33.7 % (30-36); Mean Corpuscular Hemoglobin 33.8 PG (26-34); Mean Corpuscular Volume 100.2 fL (80-100); Monocytes Absolute Auto 900 /uL (0-900); Monocytes Percent Auto 10.8 % (3-14); Neutrophils Absolute Auto 5800 /uL (1500-7000); Neutrophils Percent Auto 67.1 % (50-75); Platelet Count 157 X10^3/uL (150-400); Red Blood Cell Count 3.53 X10^6/uL (4.0-5.2); Red Cell Distribution Width 14.2 % (11.6-14.8); White Blood Cell Count 8.6 X10^3/uL (4.5-11.0)
[2022-08-29 11:45] LABS: Alanine Aminotransferase 19 IU/L (<35); Albumin 3.8 g/dL (3.5-5.0); Albumin Globulin Ratio 1.3 (1.0-2.8); Alkaline Phosphatase 88 U/L (38-126); Aspartate Aminotransferase 23 IU/L (14-36); BUN Creatinine Ratio 18.1 (6-22); Bilirubin Total 0.5 mg/dL (0.2-1.3); Blood Urea Nitrogen 19 mg/dL (7-17); Carbon Dioxide 35 mmol/L (22-32); Chloride 101 mmol/L (98-107); Cholesterol 149 mg/dL (140-199); Estimated Glomerular Filt Rate 52 mL/min (>60); Glucose 83 mg/dL (80-110); HDL Cholesterol 54 mg/dL (40-60); HEMOLYSIS < 15 (0-50); LDL Cholesterol Calculated 69 mg/dL (<100); Magnesium 2.1 mg/dL (1.6-2.3); Potassium 4.4 mmol/L (3.4-5.1); Sodium 139 mmol/L (137-145); Total Protein 6.8 g/dL (6.3-8.2); Triglycerides 131 mg/dL (35-150)
[2022-08-30 06:19] LABS: x Labcorp Estim. Avg Glu (eAG) 111 mg/dL (.); x Labcorp Hemoglobin A1c 5.5 % (4.8-5.6)
== END ==
PROVIDERS: PCP Nurse Practitioner; Referring Provider Internal Medicine Cardiovascular Disease; Visit Provider Internal Medicine Cardiovascular Disease
DX: I48.91 Unspecified atrial fibrillation (principal); I10 Essential (primary) hypertension; Z13.220 Encounter for screening for lipoid disorders
CPT/HCPCS: 36415; 80053; 80061; 83036; 83735; 84443; 85025

== ENCOUNTER 2022-10-19 19:07 | Emergency (ER) | payer MEDICARE, MEDICAID, SELFPAY ==
[2021-01-25 11:57] VITALS: BMI 38.5
[2022-10-19 19:10] VITALS: BP 121/87; PULSE 64; RESP 18; TEMP 36.7; O2SAT 94; BMI 37.3
[2022-10-19 19:30] VITALS: BP 137/83; PULSE 62; RESP 18; O2SAT 95
[2022-10-19 19:45] VITALS: BP 114/72; PULSE 85; RESP 16; O2SAT 93
[2022-10-19 20:00] VITALS: BP 106/72; PULSE 89; RESP 18; O2SAT 93
--- NOTE | 2022-10-19 20:45 | ED.ALLEREA ---
HPI - Allergic Reaction General Chief complaint: Allergic Reaction Stated complaint: Hives Time Seen by Provider: 10/19/22 20:34 Source: patient Mode of arrival: Ambulatory History of Present Illness HPI narrative: Patient is an 87-year-old female history of atrial fibrillation on Eliquis recently diagnosed with a ruptured tympanic membrane started on amoxicillin 10/10/2022, presenting today with rash. She finished the amoxicillin yesterday but broke out into a pruritic like rash all over her body. No tongue swelling lip swelling difficulty breathing or any other symptoms. Related Data Home Medications Medication Instructions Recorded Confirmed furosemide 40 mg tablet 40 mg PO DAILY 07/24/22 10/10/22 Previous Rx's Medication Instructions Recorded Neuropaway 240 mg PO DAILY #180 caps 06/28/21 calcium carbonate 500 mg calcium 500 mg PO DAILY #90 tabs 06/30/21 (1,250 mg) chewable tablet cholecalciferol (vitamin D3) 25 25 mcg PO DAILY #90 caps 06/30/21 mcg (1,000 unit) capsule apixaban 5 mg tablet (Eliquis) See Rx Instructions .Route 10/10/21 .COMPLEX #60 ea levothyroxine 25 mcg tablet See Rx Instructions .Route 05/29/22 .COMPLEX #100 ea acetaminophen 500 mg capsule 500 mg PO .TIDP PRN fever or pain 07/24/22 #90 caps aluminum-mag hydroxide-simethicone 30 ml PO .Q4HP PRN indigestion 07/24/22 200 mg-200 mg-20 mg/5 mL oral susp #355 mL (Antacid Anti-Gas) colchicine 0.6 mg tablet 0.6 mg PO BID PRN gout flare #20 07/24/22 tabs diltiazem HCl 180 mg capsule,24 180 mg PO QAM #90 caps 07/24/22 hr,extended release docusate sodium 100 mg capsule See Rx Instructions .Route 07/24/22 .COMPLEX #60 ea gabapentin 100 mg capsule See Rx Instructions .Route 07/24/22 .COMPLEX #60 ea gabapentin 300 mg capsule 600 mg PO HS #180 caps 07/24/22 (Neurontin) kkwrlzzjijr-xamjwroju-ihk C-Mn 500 1 cap PO TID #90 caps 07/24/22 mg-400 mg capsule (Glucosamine Chondroitin Maximum Strength) magnesium hydroxide 400 mg/5 mL 30 ml PO DAILY PRN constipation 07/24/22 oral suspension (Milk of Magnesia) #473 mL metoprolol succinate 50 mg 100 mg PO DAILY #180 tabs 07/24/22 tablet,extended release 24 hr multivitamin 1 tab PO DAILY #90 tabs 07/24/22 nitroglycerin 0.4 mg sublingual See Rx Instructions .Route 07/24/22 tablet .COMPLEX #25 ea tramadol 50 mg tablet 50 mg PO BID #60 ea 08/11/22 valacyclovir 1 gram tablet See Rx Instructions .Route 10/09/22 .COMPLEX #15 ea amoxicillin 500 mg capsule 1,000 mg PO Q12H #28 caps 10/10/22 prednisone 20 mg tablet 40 mg PO DAILY #10 tabs 10/19/22 Allergies Allergy/AdvReac Type Severity Reaction Status Date / Time celecoxib [From Celebrex] AdvReac Severe Kidney Verified 10/10/22 13:11 failure codeine [CODEINE] AdvReac Mild Nausea, Verified 10/10/22 13:11 vomiting Review of Systems Review of Systems ROS Unobtainable: All systems reviewed & are unremarkable except as noted in HPI and below Patient History Medical History Atrial fibrillation Chicken pox Chronic back pain Chronic kidney disease Chronic pain Claudication of lower extremity DDD (degenerative disc disease), lumbar Edema Former smoker Genital herpes Gout Hearing loss Heart palpitations Hemorrhoid History of urinary incontinence HTN (hypertension) Hypothyroidism Kidney disease (~2015) Left knee pain Neuropathy Osteoarthritis Osteoporosis Pneumonia (05/22/16) Right knee pain Scoliosis Screening for malignant neoplasm of colon Shoulder pain Skin cancer Warfarin anticoagulation Surgical History Anesthesia History of carpal tunnel release (~2008) History of hysterectomy (~01/1990) History of left hip replacement (~2016) Hx of bladder repair surgery (~1992) Hx of cholecystectomy (~1979) Hx of shoulder surgery (~2006) Status post bilateral cataract extraction (~2004) Family History Father Cancer Mother Suicide Brother Hypertension Sister Pneumonia Grandfather Diabetes mellitus Family/Other Cancer Social History household members: none Smoking Status: Former smoker Smoking Status: Former smoker alcohol intake frequency: 0-2 drinks per day Substance Use Type: does not use Exam Initial Vital Signs Initial Vital Signs: Vital Signs Temperature 98.0 F 10/19/22 19:10 Pulse Rate 64 10/19/22 19:10 Respiratory Rate 18 10/19/22 19:10 Blood Pressure 121/87 10/19/22 19:10 Pulse Oximetry 94 10/19/22 19:10 Oxygen Delivery Method Room Air 10/19/22 19:10 GENERAL: Alert pleasant 87-year-old female HEENT: Head atraumatic,EOMI, pupils reactive, face symmetric, moist mucous membranes. Persistent right tympanic membrane rupture but no evidence of infection CARDIOVASCULAR: Irregularly irregular RESPIRATORY: Breath sounds equal bilaterally, no wheezes rales or rhonchi. ABDOMEN: Soft, nontender. Normoactive bowel sounds all 4 quadrants. No guarding or rebound. EXTREMITIES: Normal range of motion, no clubbing or edema. Neurovascularly intact NEUROLOGICAL: Alert and oriented x4. SKIN: Pruritic hive-like rash, all over abdomen arms torso Course Orders Ordered: Discontinued Medications Diphenhydramine HCl (Diphenhydramine 25 Mg Tablet) 50 mg PO NOW ONE Stop: 10/19/22 20:52 Last Admin: 10/19/22 21:03 Dose: 50 mg Documented By: MARIANELA Prednisone (Prednisone 20 Mg Tablet) 40 mg PO NOW ONE Stop: 10/19/22 20:52 Last Admin: 10/19/22 21:03 Dose: 40 mg Documented By: MARIANELA Vital Signs Vital signs: Vital Signs - 8 hr 10/19/22 19:10 10/19/22 19:30 10/19/22 19:45 Temperature 98.0 F Pulse Rate 64 62 85 Respiratory Rate 18 18 16 Blood Pressure 121/87 137/83 114/72 Pulse Oximetry 94 95 93 Oxygen Delivery Method Room Air Room Air Room Air 10/19/22 20:00 10/19/22 21:18 10/19/22 21:30 Temperature Pulse Rate 89 110 H 111 H Respiratory Rate 18 18 18 Blood Pressure 106/72 132/71 132/71 Pulse Oximetry 93 98 97 Oxygen Delivery Method Room Air Room Air Room Air MDM - Allergic Reaction MDM Narrative Medical decision making narrative: Patient 87-year-old female having pruritic like allergic rash consistent with allergy to amoxicillin. No evidence of anaphylaxis. She took Benadryl earlier in the day. She is done with amoxicillin. Discharge Plan Departure Patient Disposition: Home Clinical Impression: Adverse drug reaction Instructions: DI for Adverse Drug Reaction -- Allergic Activity Restrictions/Additional Instructions: *You have been diagnosed with allergic reaction *What to do: This will take a couple days but should calm down and get better *Continue to take medications as directed Prednisone 40 mg once a day for 5 days Benadryl 25-50 mg every 6 hours if needed for itching *Follow up with your primary care provider in 2-3 days or call [phone] *Return to ER if you should have increased difficulty breathing tongue swelling lip swelling worsening rash or any new, worsening or concerning symptoms Prescriptions: New prednisone 20 mg tablet 40 mg PO DAILY Qty: 10 0RF No Action calcium carbonate 500 mg calcium (1,250 mg) tablet,chewable 500 mg PO DAILY Qty: 90 3RF cholecalciferol (vitamin D3) 25 mcg (1,000 unit) capsule 25 mcg PO DAILY Qty: 90 3RF Eliquis 5 mg tablet See Rx Instructions .ROUTE .COMPLEX Qty: 60 11RF Dose Instruction: 1 TAB BY MOUTH 2 TIMES DAILY WITH MEALS Rx Instructions: 1 TAB BY MOUTH 2 TIMES DAILY WITH MEALS levothyroxine 25 mcg tablet See Rx Instructions .ROUTE .COMPLEX Qty: 100 11RF Dose Instruction: 2 TABS (50MCG) BY MOUTH EVERY SUNDAY;1 TAB BY MOUTH 6 TIMES WEEKLY ( SUN, SUN, SUN, SUN, SUN, SAT) Rx Instructions: 2 TABS (50MCG) BY MOUTH EVERY SUNDAY;1 TAB BY MOUTH 6 TIMES WEEKLY ( SUN, SUN, SUN, SUN, SUN, SAT) acetaminophen 500 mg capsule 500 mg PO .TIDP PRN (Reason: fever or pain) Qty: 90 3RF alum-mag hydroxide-simeth [Antacid Anti-Gas] 200-200-20 mg/5 mL suspension 30 ml PO .Q4HP PRN (Reason: indigestion) Qty: 355 3RF Rx Instructions: Give 30mls PO Q4H PRN for verbal complaint of indigestion, or as evidenced by pain/discomfort in the stomach *see bottle for max daily dose* colchicine 0.6 mg tablet 0.6 mg PO BID PRN (Reason: gout flare) Qty: 20 3RF Rx Instructions: Take one tablet twice daily for 2 days as needed for gout flare diltiazem HCl 180 mg capsule,extended release 24 hr 180 mg PO QAM Qty: 90 3RF docusate sodium 100 mg capsule See Rx Instructions .ROUTE .COMPLEX Qty: 60 11RF Dose Instruction: 1 CAP BY MOUTH EVERY EVENING;1 CAP BY MOUTH EVERY DAY NEEDED FOR CONSTIPATION *HOLD X 24HRS FOR DIARRHEA* Rx Instructions: 1 CAP BY MOUTH EVERY EVENING;1 CAP BY MOUTH EVERY DAY NEEDED FOR CONSTIPATION *HOLD X 24HRS FOR DIARRHEA* furosemide 40 mg tablet 40 mg PO DAILY gabapentin [Neurontin] 300 mg capsule 600 mg PO HS Qty: 180 3RF gabapentin 100 mg capsule See Rx Instructions .ROUTE .COMPLEX Qty: 60 11RF Dose Instruction: 1 CAP BY MOUTH 2 TIMES DAILY Rx Instructions: 1 CAP BY MOUTH 2 TIMES DAILY pffobobuguu-voxpshgoq-hgo C-Mn [Glucosamine Chondroitin MaxStr] 500-400 mg capsule 1 cap PO TID Qty: 90 11RF magnesium hydroxide [Milk of Magnesia] 400 mg/5 mL suspension 30 ml PO DAILY PRN (Reason: constipation) Qty: 473 3RF Rx Instructions: Give 30mls PO with a full glass of water daily PRN for constipation or straining with passing stool. If no bowel movement within 6-8 hours, notify physician. metoprolol succinate 50 mg tablet extended release 24 hr 100 mg PO DAILY Qty: 180 3RF Rx Instructions: Take 2 tabs daily for atrial fibrillation multivitamin Tablet 1 tab PO DAILY Qty: 90 3RF nitroglycerin 0.4 mg tablet, sublingual See Rx Instructions .ROUTE .COMPLEX Qty: 25 2RF Dose Instruction: 1 TABLET SUBLINGUALLY EVERY 5 MINS NEEDED FOR CHEST PAIN UP TO 3 DOSES; CALL 911 IF NO RELIEF Rx Instructions: 1 TABLET SUBLINGUALLY EVERY 5 MINS NEEDED FOR CHEST PAIN UP TO 3 DOSES; CALL 911 IF NO RELIEF tramadol 50 mg tablet 50 mg PO BID Qty: 60 5RF valacyclovir 1 gram tablet See Rx Instructions .ROUTE .COMPLEX Qty: 15 11RF Dose Instruction: 0.5 TAB (500MG) BY MOUTH EVERY DAY (DX: GENITAL INFECTION) Rx Instructions: 0.5 TAB (500MG) BY MOUTH EVERY DAY (DX: GENITAL INFECTION) Neuropaway capsule 240 mg PO DAILY Qty: 180 0RF Rx Instructions: Take 2 capsules daily for neuropathy amoxicillin 500 mg capsule 1,000 mg PO Q12H Qty: 28 0RF Referrals: Vielka Iyer ARNP [Primary Care Provider] - Stand Alone Forms: Patient Portal/API
[2022-10-19] MEDS: predniSONE 20 MG TABLET 40 MG PO (21:03)
[2022-10-19] MEDS: diphenhydrAMINE 25 MG TABLET 50 MG PO (21:03)
[2022-10-19 21:18] VITALS: BP 132/71; PULSE 110; RESP 18; O2SAT 98
[2022-10-19 21:30] VITALS: BP 132/71; PULSE 111; RESP 18; O2SAT 97
== END 2022-10-19 21:31 | disposition home or self-care (01) ==
PROVIDERS: Emergency Provider Emergency Medicine; PCP Nurse Practitioner
DX: R21 Rash and other nonspecific skin eruption (principal); T36.0X5A Adverse effect of penicillins, initial encounter
CPT/HCPCS: 99283

== ENCOUNTER 2022-10-21 14:23 | Emergency (ER) | payer MEDICARE, MEDICAID, SELFPAY ==
[2021-01-25 11:57] VITALS: BMI 38.5
[2022-10-21] VITALS (19 sets, daily range): BP systolic 112–137; BP diastolic 59–89; PULSE 56–140; RESP 14–32; TEMP 36; O2SAT 91–99; BMI 37.3
--- NOTE | 2022-10-21 14:49 | ED_ITS ---
HPI - Allergic Reaction General Chief complaint: Allergic Reaction Stated complaint: hives getting worse Time Seen by Provider: 10/21/22 14:37 Source: patient and family Mode of arrival: Ambulatory History of Present Illness HPI narrative: 87-year-old female nonsmoker presents to the emergency department with a chief complaint of a worsening widespread pruritic rash and some fullness of her tongue. She had recently been on amoxicillin for the treatment of a ruptured tympanic membrane and finished her course of antibiotics a few days ago. She was seen and evaluated here on 10/19 for evaluation of hives and was encouraged to take diphenhydramine, put short course of prednisone and given typical return precautions. Since then she is had worsening rash on arms, chest, abdomen and back and has the sensation of swollen tongue. She denies any trouble breathing or swallowing. Related Data Home Medications Medication Instructions Recorded Confirmed furosemide 40 mg tablet 40 mg PO DAILY 07/24/22 10/10/22 Previous Rx's Medication Instructions Recorded Neuropaway 240 mg PO DAILY #180 caps 06/28/21 calcium carbonate 500 mg calcium 500 mg PO DAILY #90 tabs 06/30/21 (1,250 mg) chewable tablet cholecalciferol (vitamin D3) 25 25 mcg PO DAILY #90 caps 06/30/21 mcg (1,000 unit) capsule apixaban 5 mg tablet (Eliquis) See Rx Instructions .Route 10/10/21 .COMPLEX #60 ea levothyroxine 25 mcg tablet See Rx Instructions .Route 05/29/22 .COMPLEX #100 ea acetaminophen 500 mg capsule 500 mg PO .TIDP PRN fever or pain 07/24/22 #90 caps aluminum-mag hydroxide-simethicone 30 ml PO .Q4HP PRN indigestion 07/24/22 200 mg-200 mg-20 mg/5 mL oral susp #355 mL (Antacid Anti-Gas) colchicine 0.6 mg tablet 0.6 mg PO BID PRN gout flare #20 07/24/22 tabs diltiazem HCl 180 mg capsule,24 180 mg PO QAM #90 caps 07/24/22 hr,extended release docusate sodium 100 mg capsule See Rx Instructions .Route 07/24/22 .COMPLEX #60 ea gabapentin 100 mg capsule See Rx Instructions .Route 07/24/22 .COMPLEX #60 ea gabapentin 300 mg capsule 600 mg PO HS #180 caps 07/24/22 (Neurontin) [id number] C-Mn 500 1 cap PO TID #90 caps 07/24/22 mg-400 mg capsule (Glucosamine Chondroitin Maximum Strength) magnesium hydroxide 400 mg/5 mL 30 ml PO DAILY PRN constipation 07/24/22 oral suspension (Milk of Magnesia) #473 mL metoprolol succinate 50 mg 100 mg PO DAILY #180 tabs 07/24/22 tablet,extended release 24 hr multivitamin 1 tab PO DAILY #90 tabs 07/24/22 nitroglycerin 0.4 mg sublingual See Rx Instructions .Route 07/24/22 tablet .COMPLEX #25 ea tramadol 50 mg tablet 50 mg PO BID #60 ea 08/11/22 valacyclovir 1 gram tablet See Rx Instructions .Route 10/09/22 .COMPLEX #15 ea amoxicillin 500 mg capsule 1,000 mg PO Q12H #28 caps 10/10/22 prednisone 20 mg tablet 40 mg PO DAILY #10 tabs 10/19/22 epinephrine 0.3 mg/0.3 mL 0.3 mg (0.3 mL) IM Q5-15M PRN 10/21/22 injection, auto-injector (EpiPen anaphylaxis #2 ea 2-Chau) epinephrine 0.3 mg/0.3 mL 0.3 mg (0.3 mL) IM Q5-15M PRN 10/21/22 injection, auto-injector (EpiPen anaphylaxis #2 ea 2-Chau) prednisone 20 mg tablet 40 mg PO DAILY #4 tabs 10/21/22 Allergies Allergy/AdvReac Type Severity Reaction Status Date / Time amoxicillin Allergy Severe Swelling Verified 10/21/22 14:26 of Lip/Tongue/Throat celecoxib [From Celebrex] AdvReac Severe Kidney Verified 10/21/22 14:26 failure codeine [CODEINE] AdvReac Mild Nausea, Verified 10/21/22 14:26 vomiting Review of Systems Review of Systems Narrative: GENERAL: Denies chills, fatigue, malaise, fever, sweats. HEENT: See HPI RESPIRATORY: Denies dyspnea, cough, wheezing, hemoptysis, sputum. CARDIOVASCULAR: Denies chest pain, palpitations, orthopnea, edema, GASTROINTESTINAL: Denies nausea, vomiting, abdominal pain, diarrhea, constipation, melena. : Denies dysuria, frequency, incontinence, hematuria, urinary retention. MUSCULOSKELETAL: denies weakness, joint pain, or bony pain SKIN: See HPI NEUROLOGIC: Denies weakness, headache, numbness, change in speech, confusion, seizures, incoordination. PSYCHIATRIC: No concerning psychosocial issues. 12 point review of systems is negative except for those stated above Patient History Medical History Atrial fibrillation Chicken pox Chronic back pain Chronic kidney disease Chronic pain Claudication of lower extremity DDD (degenerative disc disease), lumbar Edema Former smoker Genital herpes Gout Hearing loss Heart palpitations Hemorrhoid History of urinary incontinence HTN (hypertension) Hypothyroidism Kidney disease (~2015) Left knee pain Neuropathy Osteoarthritis Osteoporosis Pneumonia (05/22/16) Right knee pain Scoliosis Screening for malignant neoplasm of colon Shoulder pain Skin cancer Warfarin anticoagulation Surgical History Anesthesia History of carpal tunnel release (~2008) History of hysterectomy (~01/1990) History of left hip replacement (~2016) Hx of bladder repair surgery (~1992) Hx of cholecystectomy (~1979) Hx of shoulder surgery (~2006) Status post bilateral cataract extraction (~2004) Family History Father Cancer Mother Suicide Brother Hypertension Sister Pneumonia Grandfather Diabetes mellitus Family/Other Cancer Social History household members: none Smoking Status: Former smoker Smoking Status: Former smoker alcohol intake frequency: 0-2 drinks per day Substance Use Type: does not use Exam Narrative Exam Narrative: GENERAL: [87] year old patient appears stated age. Well-developed patient, in mild distress. HEAD: Atraumatic. Normocephalic. EYES: Pupils equal round and reactive. Extraocular motions intact. No scleral icterus. No injection or drainage. ENT: Nose without bleeding, purulent drainage. Throat without erythema, no mucous membrane involvement, tonsillar hypertrophy or exudate. Airway patent. No obvious swelling of tongue, airway patent, controlling secretions NECK: Trachea midline. Non tender CARDIOVASCULAR: Regular rate and rhythm without murmurs, gallops, or rubs. RESPIRATORY: Clear to auscultation. Breath sounds equal bilaterally. No wheezes, rales, or rhonchi. GASTROINTESTINAL: Abdomen soft, non-tender, nondistended. EXTREMITIES: No edema or joint tenderness. BACK: Nontender without deformity or crepitance. No flank tenderness. NEURO: AOx3. SKIN: Widespread pruritic, blanching rash on chest, abdomen extremities and back, negative [place] Initial Vital Signs Initial Vital Signs: Vital Signs Temperature 96.8 F L 10/21/22 14:26 Pulse Rate 90 10/21/22 14:26 Respiratory Rate 18 10/21/22 14:26 Blood Pressure 124/79 10/21/22 14:26 Pulse Oximetry 96 10/21/22 14:26 Oxygen Delivery Method Room Air 10/21/22 14:26 Course Orders Ordered: Discontinued Medications Dexamethasone (Dexamethasone 10 Mg/Ml Vial) 10 mg IV NOW ONE Stop: 10/21/22 14:48 Last Admin: 10/21/22 14:56 Dose: 10 mg Documented By: SPF Diphenhydramine HCl (Diphenhydramine 50 Mg/Ml Vial) 25 mg IV NOW ONE Stop: 10/21/22 14:48 Last Admin: 10/21/22 15:04 Dose: 25 mg Documented By: SPF Epinephrine HCl (Epinephrine 1 Mg/Ml) 0.3 mg IM NOW ONE Stop: 10/21/22 14:48 Last Admin: 10/21/22 14:55 Dose: 0.3 mg Documented By: SPF Famotidine (Famotidine 20 Mg/2 Ml Vial) 20 mg IV NOW SORAYA Last Admin: 10/21/22 15:06 Dose: 20 mg Documented By: SPF Reevaluation(s) Reevaluation #1: Patient with significant improvement in symptoms, tongue no longer feeling swollen, speech back to normal, rash greatly improved Time: 17:17 Vital Signs Vital signs: Vital Signs - 8 hr 10/21/22 14:26 10/21/22 14:37 10/21/22 14:38 Temperature 96.8 F L Pulse Rate 90 56 L 78 Respiratory Rate 18 Blood Pressure 124/79 Pulse Oximetry 96 94 91 Oxygen Delivery Method Room Air Room Air 10/21/22 14:38 10/21/22 15:00 10/21/22 15:03 Temperature Pulse Rate 90 108 H Respiratory Rate 14 Blood Pressure 123/73 Pulse Oximetry 94 Oxygen Delivery Method Room Air 10/21/22 15:03 10/21/22 15:30 10/21/22 15:30 Temperature Pulse Rate 98 H Respiratory Rate 19 Blood Pressure 118/73 128/77 Pulse Oximetry 97 Oxygen Delivery Method Room Air 10/21/22 15:41 10/21/22 15:41 10/21/22 16:00 Temperature Pulse Rate 96 H Respiratory Rate 18 Blood Pressure 117/67 128/89 Pulse Oximetry 99 Oxygen Delivery Method 10/21/22 16:00 10/21/22 16:30 10/21/22 16:30 Temperature Pulse Rate 92 H 89 Respiratory Rate 22 20 Blood Pressure 137/64 Pulse Oximetry 94 99 Oxygen Delivery Method Room Air Room Air 10/21/22 17:00 10/21/22 17:01 10/21/22 17:01 Temperature Pulse Rate 89 92 H Respiratory Rate 24 22 Blood Pressure 124/63 Pulse Oximetry 94 95 Oxygen Delivery Method 10/21/22 17:24 10/21/22 17:24 10/21/22 17:30 Temperature Pulse Rate 140 H Respiratory Rate 22 Blood Pressure 115/59 L 122/76 Pulse Oximetry Oxygen Delivery Method 10/21/22 17:30 10/21/22 18:00 10/21/22 18:00 Temperature Pulse Rate 90 93 H Respiratory Rate 23 23 Blood Pressure 112/64 Pulse Oximetry 93 Oxygen Delivery Method 10/21/22 18:30 10/21/22 18:31 10/21/22 18:31 Temperature Pulse Rate 91 H 86 Respiratory Rate 23 32 H Blood Pressure 118/74 Pulse Oximetry Oxygen Delivery Method 10/21/22 19:00 Temperature Pulse Rate 82 Respiratory Rate 25 H Blood Pressure Pulse Oximetry Oxygen Delivery Method MDM - Allergic Reaction Lab Data Labs: Lab Results 10/21/22 Range/Units 17:28 Urine RBC None seen (0-5/HPF) Urine WBC 0-1/hpf (0-5/HPF) Ur Squamous Epith Cells 0-1 /hpf (0-5/HPF) Urine Bacteria None seen (None) Ur Culture Indicated? Cult not indicated Urine Dip Bedside Urine Glucose Negative Bedside Urine Bilirubin - Negative Bedside Urine Ketone - Negative Urine Specific [place] 1.010 Bedside Urine Occult Blood - Negative Bedside Urine pH 6.0 Bedside Urine Protein - Negative Bedside Urine Urobilinogen - Negative Bedside Urine Nitrite - Negative Bedside Urine Leukocytes +/- 15 Esterase MDM Narrative Medical decision making narrative: CC: 87-year-old with widespread, worsening rash in the perception of tongue swelling after taking amoxicillin Complicating co-morbidities: Age, recent antibiotics Data collected from: Patient Medical records reviewed: Prior notes reviewed in our EMR Differential considered, but not limited to: Allergic reaction versus amoxicillin reaction versus [place] versus other Exam documented above, pertinent findings include: Awake, alert and oriented, stable vitals, no oral involvement, no obvious tongue swelling, widespread pruritic rash, no difficulty breathing, no trouble swallowing Lab Test results independently reviewed as above. Pertinent findings: Independently reviewed EKG as above Treatments: Epinephrine, diphenhydramine, Decadron, Pepcid Re-evaluations: Significant improvement Discussion: Patient with worsening allergic type symptoms after exposure to amoxicillin, presents today with some swelling of her tongue in addition to widespread rash. She has a significant improvement after medications listed above, she is observed for 6 hours with no recurrence of symptoms. Patient does have very subtle suggestion on the POC of a UTI, urinalysis is suggestive of no infectious process. Given her recent reaction to antibiotics and lack of convincing symptoms we discussed holding off on the treatment for now, pending cultures. Disposition: see below, along with detailed discharge instructions that have been reviewed with patient as well as indications for ED re-evaluation and additional outpatient follow up Discharge Plan Departure Patient Disposition: Home Clinical Impression: Anaphylaxis Instructions: DI for Anaphylaxis Activity Restrictions/Additional Instructions: *You have been diagnosed with [allergic reaction] *What to do: *Please continue to take your regular medications as directed. [x ] New medication prescriptions sent to your pharmacy: [[facility] ] [ ] New medication written as a paper prescription [ ] No new medications given *Please consider the routine use of over the counter antihistamines over the next few days 1. H1 blockers: Benadryl (Diphenhydramine), Zyrtec (Cetirizine), Paulina (Fexofenadine) or Claritin (Loratadine) along with, 2. H2 blockers: Famotidine or Cimetidine *If you can please avoid what triggered your reaction today *Please follow up with your primary care provider in 2-3 days, call for an appointment. Let them know you were seen in the Emergency Department and that we ask that you be seen in follow up. We will electronically transmit a record of today's note if your PCP is in our system *If you do not have a primary care provider please contact the [facility] Resource line at [phone]. They will ask some questions about your medical history and help get you set up with a doctor in the community. *Return to Emergency Department if you should have any new, worsening or concerning symptoms, such as swelling of tongue, throat, trouble breathing, or other concerning symptoms Prescriptions: New epinephrine [EpiPen 2-Chau] 0.3 mg/0.3 mL auto-injector 0.3 mg IM Q5-15M PRN (Reason: anaphylaxis) Qty: 2 0RF Rx Instructions: do not exceed 3 doses per episode epinephrine [EpiPen 2-Chau] 0.3 mg/0.3 mL auto-injector 0.3 mg IM Q5-15M PRN (Reason: anaphylaxis) Qty: 2 0RF Rx Instructions: do not exceed 3 doses per episode prednisone 20 mg tablet 40 mg PO DAILY Qty: 4 0RF No Action calcium carbonate 500 mg calcium (1,250 mg) tablet,chewable 500 mg PO DAILY Qty: 90 3RF cholecalciferol (vitamin D3) 25 mcg (1,000 unit) capsule 25 mcg PO DAILY Qty: 90 3RF Eliquis 5 mg tablet See Rx Instructions .ROUTE .COMPLEX Qty: 60 11RF Dose Instruction: 1 TAB BY MOUTH 2 TIMES DAILY WITH MEALS Rx Instructions: 1 TAB BY MOUTH 2 TIMES DAILY WITH MEALS levothyroxine 25 mcg tablet See Rx Instructions .ROUTE .COMPLEX Qty: 100 11RF Dose Instruction: 2 TABS (50MCG) BY MOUTH EVERY SUNDAY;1 TAB BY MOUTH 6 TIMES WEEKLY ( SUN, SUN, SUN, SUN, FRI, SAT) Rx Instructions: 2 TABS (50MCG) BY MOUTH EVERY SUNDAY;1 TAB BY MOUTH 6 TIMES WEEKLY ( SUN, SUN, SUN, SUN, FRI, SAT) acetaminophen 500 mg capsule 500 mg PO .TIDP PRN (Reason: fever or pain) Qty: 90 3RF alum-mag hydroxide-simeth [Antacid Anti-Gas] 200-200-20 mg/5 mL suspension 30 ml PO .Q4HP PRN (Reason: indigestion) Qty: 355 3RF Rx Instructions: Give 30mls PO Q4H PRN for verbal complaint of indigestion, or as evidenced by pain/discomfort in the stomach *see bottle for max daily dose* colchicine 0.6 mg tablet 0.6 mg PO BID PRN (Reason: gout flare) Qty: 20 3RF Rx Instructions: Take one tablet twice daily for 2 days as needed for gout flare diltiazem HCl 180 mg capsule,extended release 24 hr 180 mg PO QAM Qty: 90 3RF docusate sodium 100 mg capsule See Rx Instructions .ROUTE .COMPLEX Qty: 60 11RF Dose Instruction: 1 CAP BY MOUTH EVERY EVENING;1 CAP BY MOUTH EVERY DAY NEEDED FOR CONSTIPATION *HOLD X 24HRS FOR DIARRHEA* Rx Instructions: 1 CAP BY MOUTH EVERY EVENING;1 CAP BY MOUTH EVERY DAY NEEDED FOR CONSTIPATION *HOLD X 24HRS FOR DIARRHEA* furosemide 40 mg tablet 40 mg PO DAILY gabapentin [Neurontin] 300 mg capsule 600 mg PO HS Qty: 180 3RF gabapentin 100 mg capsule See Rx Instructions .ROUTE .COMPLEX Qty: 60 11RF Dose Instruction: 1 CAP BY MOUTH 2 TIMES DAILY Rx Instructions: 1 CAP BY MOUTH 2 TIMES DAILY [id number] C-Mn [Glucosamine Chondroitin MaxStr] 500-400 mg capsule 1 cap PO TID Qty: 90 11RF magnesium hydroxide [Milk of Magnesia] 400 mg/5 mL suspension 30 ml PO DAILY PRN (Reason: constipation) Qty: 473 3RF Rx Instructions: Give 30mls PO with a full glass of water daily PRN for constipation or straining with passing stool. If no bowel movement within 6-8 hours, notify physician. metoprolol succinate 50 mg tablet extended release 24 hr 100 mg PO DAILY Qty: 180 3RF Rx Instructions: Take 2 tabs daily for atrial fibrillation multivitamin Tablet 1 tab PO DAILY Qty: 90 3RF nitroglycerin 0.4 mg tablet, sublingual See Rx Instructions .ROUTE .COMPLEX Qty: 25 2RF Dose Instruction: 1 TABLET SUBLINGUALLY EVERY 5 MINS NEEDED FOR CHEST PAIN UP TO 3 DOSES; CALL 911 IF NO RELIEF Rx Instructions: 1 TABLET SUBLINGUALLY EVERY 5 MINS NEEDED FOR CHEST PAIN UP TO 3 DOSES; CALL 911 IF NO RELIEF tramadol 50 mg tablet 50 mg PO BID Qty: 60 5RF valacyclovir 1 gram tablet See Rx Instructions .ROUTE .COMPLEX Qty: 15 11RF Dose Instruction: 0.5 TAB (500MG) BY MOUTH EVERY DAY (DX: GENITAL INFECTION) Rx Instructions: 0.5 TAB (500MG) BY MOUTH EVERY DAY (DX: GENITAL INFECTION) Neuropaway capsule 240 mg PO DAILY Qty: 180 0RF Rx Instructions: Take 2 capsules daily for neuropathy amoxicillin 500 mg capsule 1,000 mg PO Q12H Qty: 28 0RF prednisone 20 mg tablet 40 mg PO DAILY Qty: 10 0RF Referrals: Vielka Iyer ARNP [Primary Care Provider] - Stand Alone Forms: Patient Portal/API
[2022-10-21] MEDS: EPINEPHrine 1 MG/ML 0.3 MG IM (14:55)
[2022-10-21] MEDS: DEXAMETHASONE 10 MG/ML VIAL IV (14:56)
[2022-10-21] MEDS: diphenhydrAMINE 50 MG/ML VIAL 25 MG IV (15:04)
[2022-10-21] MEDS: FAMOTIDINE 20 MG/2 ML VIAL IV (15:06)
[2022-10-21 18:07] LABS: Bacteria Urine None Seen; Culture Indicated Urine Cult Not Indicated; RBC Urine None Seen (0-5/HPF); Squamous Epithelial Cell Urine 0-1 /HPF (0-5/HPF); WBC Urine 0-1/HPF (0-5/HPF)
== END 2022-10-21 21:16 | disposition home or self-care (01) ==
PROVIDERS: Emergency Provider Emergency Medicine; PCP Nurse Practitioner
DX: T78.2XXA Anaphylactic shock, unspecified, initial encounter (principal)
CPT/HCPCS: 36415; 81003; 81015; 96372; 96374; 96375; 99284; J0171; J1100; J1200

== ENCOUNTER 2022-10-25 14:56 | Observation (INO) | payer MEDICARE, MEDICAID, SELFPAY ==
[2021-01-25 11:57] VITALS: BMI 38.5
[2022-10-25] VITALS (14 sets, daily range): BP systolic 106–138; BP diastolic 56–90; PULSE 87–128; RESP 10–32; TEMP 35.7–36.4; O2SAT 86–98; BMI 37.3; BMI 35.9
--- NOTE | 2022-10-25 15:54 | ED.SKABFB ---
HPI - Skin/Abscess/Foreign Bdy General Chief complaint: GI Bleed Stated complaint: bleeding hemroides Time Seen by Provider: 10/25/22 15:46 Source: patient and family Mode of arrival: Wheelchair History of Present Illness HPI narrative: Patient here with daughter for complaints rectal bleeding for the last 3 days. Now starting to feel short of breath weak and dizzy. She is changing a pad every hour. Patient has history atrial fibrillation and is on Eliquis. Last Eliquis taken was Sunday night. This is now Sunday afternoon. Patient never had bleeding from Eliquis before. Vital signs reviewed. Patient is not toxic. Denies abdominal pain. Patient's daughter and Female Nurse Devika at bedside to health physics technician for rectal exam Related Data Home Medications Medication Instructions Recorded Confirmed furosemide 40 mg tablet 40 mg PO DAILY 07/24/22 10/10/22 Previous Rx's Medication Instructions Recorded Neuropaway 240 mg PO DAILY #180 caps 06/28/21 calcium carbonate 500 mg calcium 500 mg PO DAILY #90 tabs 06/30/21 (1,250 mg) chewable tablet cholecalciferol (vitamin D3) 25 25 mcg PO DAILY #90 caps 06/30/21 mcg (1,000 unit) capsule apixaban 5 mg tablet (Eliquis) See Rx Instructions .Route 10/10/21 .COMPLEX #60 ea levothyroxine 25 mcg tablet See Rx Instructions .Route 05/29/22 .COMPLEX #100 ea acetaminophen 500 mg capsule 500 mg PO .TIDP PRN fever or pain 07/24/22 #90 caps aluminum-mag hydroxide-simethicone 30 ml PO .Q4HP PRN indigestion 07/24/22 200 mg-200 mg-20 mg/5 mL oral susp #355 mL (Antacid Anti-Gas) colchicine 0.6 mg tablet 0.6 mg PO BID PRN gout flare #20 07/24/22 tabs diltiazem HCl 180 mg capsule,24 180 mg PO QAM #90 caps 07/24/22 hr,extended release docusate sodium 100 mg capsule See Rx Instructions .Route 07/24/22 .COMPLEX #60 ea gabapentin 100 mg capsule See Rx Instructions .Route 07/24/22 .COMPLEX #60 ea gabapentin 300 mg capsule 600 mg PO HS #180 caps 07/24/22 (Neurontin) [id number] C-Mn 500 1 cap PO TID #90 caps 07/24/22 mg-400 mg capsule (Glucosamine Chondroitin Maximum Strength) magnesium hydroxide 400 mg/5 mL 30 ml PO DAILY PRN constipation 07/24/22 oral suspension (Milk of Magnesia) #473 mL metoprolol succinate 50 mg 100 mg PO DAILY #180 tabs 07/24/22 tablet,extended release 24 hr multivitamin 1 tab PO DAILY #90 tabs 07/24/22 nitroglycerin 0.4 mg sublingual See Rx Instructions .Route 07/24/22 tablet .COMPLEX #25 ea tramadol 50 mg tablet 50 mg PO BID #60 ea 08/11/22 valacyclovir 1 gram tablet See Rx Instructions .Route 10/09/22 .COMPLEX #15 ea amoxicillin 500 mg capsule 1,000 mg PO Q12H #28 caps 10/10/22 prednisone 20 mg tablet 40 mg PO DAILY #10 tabs 10/19/22 epinephrine 0.3 mg/0.3 mL 0.3 mg (0.3 mL) IM Q5-15M PRN 10/21/22 injection, auto-injector (EpiPen anaphylaxis #2 ea 2-Chau) epinephrine 0.3 mg/0.3 mL 0.3 mg (0.3 mL) IM Q5-15M PRN 10/21/22 injection, auto-injector (EpiPen anaphylaxis #2 ea 2-Chau) prednisone 20 mg tablet 40 mg PO DAILY #4 tabs 10/21/22 Allergies Allergy/AdvReac Type Severity Reaction Status Date / Time amoxicillin Allergy Severe Swelling Verified 10/21/22 14:26 of Lip/Tongue/Throat celecoxib [From Celebrex] AdvReac Severe Kidney Verified 10/21/22 14:26 failure codeine [CODEINE] AdvReac Mild Nausea, Verified 10/21/22 14:26 vomiting Review of Systems Review of Systems Narrative: GENERAL: negative chills, pause fatigue, malaise, negative fever, sweats. HEENT: negative sinus pain, ear pain, sore throat RESPIRATORY: negative dyspnea, cough CARDIOVASCULAR: negative chest pain, palpitations GASTROINTESTINAL: negative nausea, vomiting, abdominal pain, positive rectal bleeding : negative dysuria, frequency, hematuria MUSCULOSKELETAL: negative muscle or bony pain SKIN: negative rash, skin lesions NEUROLOGIC: negative weakness, numbness ROS Unobtainable: All systems reviewed & are unremarkable except as noted in HPI and below Patient History Medical History Atrial fibrillation Chicken pox Chronic back pain Chronic kidney disease Chronic pain Claudication of lower extremity DDD (degenerative disc disease), lumbar Edema Former smoker Genital herpes Gout Hearing loss Heart palpitations Hemorrhoid History of urinary incontinence HTN (hypertension) Hypothyroidism Kidney disease (~2015) Left knee pain Neuropathy Osteoarthritis Osteoporosis Pneumonia (05/22/16) Right knee pain Scoliosis Screening for malignant neoplasm of colon Shoulder pain Skin cancer Warfarin anticoagulation Surgical History Anesthesia History of carpal tunnel release (~2008) History of hysterectomy (~01/1990) History of left hip replacement (~2016) Hx of bladder repair surgery (~1992) Hx of cholecystectomy (~1979) Hx of shoulder surgery (~2006) Status post bilateral cataract extraction (~2004) Family History Father Cancer Mother Suicide Brother Hypertension Sister Pneumonia Grandfather Diabetes mellitus Family/Other Cancer Social History household members: none Smoking Status: Former smoker Smoking Status: Former smoker alcohol intake frequency: 0-2 drinks per day Substance Use Type: does not use Exam Narrative Exam Narrative: GENERAL: in no distress, not toxic not dyspneic HEAD: Normocephalic. EYES: Pupils equal round , pink conjunctiva ENT: Mucous membranes moist. NECK: Trachea midline. CARDIOVASCULAR: Tachycardia with irregular irregular rhythm RESPIRATORY: Clear to auscultation. Breath sounds equal bilaterally. No wheezes, rales, or rhonchi. GASTROINTESTINAL: Abdomen soft, non-tender, rectal exam does show small nonbleeding nontender external hemorrhoid. There are blood clots/dark clots extending out of the rectum/anus. No hematochezia EXTREMITIES: No gross deformities. BACK: No flank tenderness. NEURO: AOx4. SKIN: Warm and dry PSYCH: Not anxious, is cooperative Initial Vital Signs Initial Vital Signs: Vital Signs Temperature 97.6 F 10/25/22 15:02 Pulse Rate 105 H 10/25/22 15:02 Respiratory Rate 16 10/25/22 15:02 Blood Pressure 112/79 10/25/22 15:02 Pulse Oximetry 97 10/25/22 15:02 Oxygen Delivery Method Room Air 10/25/22 15:02 Course Orders Ordered: ED Orders 10/25/22 16:04 EKG-12 Lead Stat 10/25/22 16:05 Complete Blood Count AUTO DIFF Stat Comprehensive Metabolic Panel Stat PTT Partial Thromboplastin Antonino Stat Prothrombin Time INR Stat Type and Screen Stat 10/25/22 17:15 CT abdomen pelvis wo con Stat Discontinued Medications Pantoprazole Sodium (Pantoprazole 40 Mg Vial) 40 mg IV NOW ONE Stop: 10/25/22 18:17 Last Admin: 10/25/22 19:42 Dose: 40 mg Documented By: RENEE Vital Signs Vital signs: Vital Signs - 8 hr 10/25/22 15:02 10/25/22 15:22 10/25/22 15:23 Temperature 97.6 F Pulse Rate 105 H 87 Respiratory Rate 16 Blood Pressure 112/79 106/69 Pulse Oximetry 97 94 Oxygen Delivery Method Room Air 10/25/22 15:23 10/25/22 15:30 10/25/22 15:30 Temperature Pulse Rate 91 H 94 H Respiratory Rate Blood Pressure 113/64 Pulse Oximetry 94 97 Oxygen Delivery Method 10/25/22 16:00 10/25/22 16:23 10/25/22 16:23 Temperature Pulse Rate 91 H 94 H Respiratory Rate 17 20 Blood Pressure 132/68 Pulse Oximetry 89 L 96 Oxygen Delivery Method 10/25/22 16:30 10/25/22 16:30 10/25/22 17:00 Temperature Pulse Rate 107 H Respiratory Rate 15 Blood Pressure 138/73 124/90 Pulse Oximetry 96 Oxygen Delivery Method 10/25/22 17:00 10/25/22 17:35 10/25/22 18:00 Temperature Pulse Rate 111 H 113 H 108 H Respiratory Rate 13 14 10 L Blood Pressure Pulse Oximetry 98 86 L 98 Oxygen Delivery Method 10/25/22 18:30 Temperature Pulse Rate 119 H Respiratory Rate 13 Blood Pressure Pulse Oximetry 96 Oxygen Delivery Method MDM - Skin/Abscess/Foreign Bdy Lab Data 10/25/22 16:05 10/25/22 16:05 Labs: Lab Results 10/25/22 10/25/22 10/25/22 Range/Units 16:05 16:05 16:05 WBC 15.1 H (4.5-11.0) X10^3/uL RBC 3.89 L (4.0-5.2) X10^6/uL Hgb 13.1 (12.0-16.0) g/dL Hct 38.5 (36-46) % MCV 99.2 (80-100) fL MCH 33.6 (26-34) PG MCHC 33.9 (30-36) % RDW 14.3 (11.6-14.8) % Plt Count 211 (150-400) X10^3/uL Neut % (Auto) 66.8 (50-75) % Lymph % (Auto) 20.1 L (25-40) % Sumner % (Auto) 12.1 (3-14) % Eos % (Auto) 0.4 L (2-4) % Baso % (Auto) 0.6 (0-2) % Neut # (Auto) 67185 H (9438-6828) /uL Lymph # (Auto) 3000 (9954-0429) /uL Sumner # (Auto) 1800 H (0-900) /uL Eos # (Auto) 100 (0-450) /uL Baso # (Auto) 100 (0-100) /uL Platelet Estimate Adequate on smear Plt Morphology Comment RBC Morphology Normal morphology PT 14.1 H (10.1-12.7) SECONDS INR 1.2 (0.9-1.3) APTT 27 (26-36) SECONDS Sodium 136 L (137-145) mmol/L Potassium 3.7 (3.4-5.1) mmol/L Chloride 99 (98-107) mmol/L Carbon Dioxide 28 (22-32) mmol/L BUN 36 H (7-17) mg/dL Creatinine 1.19 H (0.52-1.04) mg/dL Estimated GFR 45 L (>60) mL/min BUN/Creatinine Ratio 30.3 H (6-22) Glucose 92 (80-110) mg/dL Calcium 9.1 (8.4-10.2) mg/dL Total Bilirubin 0.5 (0.2-1.3) mg/dL AST 49 H (14-36) IU/L ALT 87 H (<35) IU/L Alkaline Phosphatase 81 (38-126) U/L Total Protein 7.5 (6.3-8.2) g/dL Albumin 4.0 (3.5-5.0) g/dL Globulin 3.5 (1.7-4.1) g/dL Albumin/Globulin Ratio 1.1 (1.0-2.8) Blood Type Antibody Screen 10/25/22 Range/Units 16:05 WBC (4.5-11.0) X10^3/uL RBC (4.0-5.2) X10^6/uL Hgb (12.0-16.0) g/dL Hct (36-46) % MCV (80-100) fL MCH (26-34) PG MCHC (30-36) % RDW (11.6-14.8) % Plt Count (150-400) X10^3/uL Neut % (Auto) (50-75) % Lymph % (Auto) (25-40) % Sumner % (Auto) (3-14) % Eos % (Auto) (2-4) % Baso % (Auto) (0-2) % Neut # (Auto) (1537-4573) /uL Lymph # (Auto) (9241-5144) /uL Sumner # (Auto) (0-900) /uL Eos # (Auto) (0-450) /uL Baso # (Auto) (0-100) /uL Platelet Estimate Plt Morphology Comment RBC Morphology PT (10.1-12.7) SECONDS INR (0.9-1.3) APTT (26-36) SECONDS Sodium (137-145) mmol/L Potassium (3.4-5.1) mmol/L Chloride (98-107) mmol/L Carbon Dioxide (22-32) mmol/L BUN (7-17) mg/dL Creatinine (0.52-1.04) mg/dL Estimated GFR (>60) mL/min BUN/Creatinine Ratio (6-22) Glucose (80-110) mg/dL Calcium (8.4-10.2) mg/dL Total Bilirubin (0.2-1.3) mg/dL AST (14-36) IU/L ALT (<35) IU/L Alkaline Phosphatase (38-126) U/L Total Protein (6.3-8.2) g/dL Albumin (3.5-5.0) g/dL Globulin (1.7-4.1) g/dL Albumin/Globulin Ratio (1.0-2.8) Blood Type O Positive Antibody Screen Negative Imaging Data CT scan - abdomen/pelvis: Radiologist's Impression: [address] [address] [address] Scan Report Signed Patient: Estela Mcgarry MR#: [id number] : 1935 Acct:[id number] Age/Sex: 87 / F Date of Service: 10/25/22 Loc: ED Accession Number: [id number] ?? Procedure: CT abdomen pelvis wo con Ordering Provider: Colin Ramsey MD PROCEDURE:? CT ABDOMEN PELVIS WO CON ? INDICATIONS:? GI bleed ? TECHNIQUE:? Noncontrast 5 mm thick sections acquired from the diaphragms to the symphysis.? 5 mm coronal and sagittal reformats were then performed.? For radiation dose reduction, the following was used:? automated exposure control, adjustment of mA and/or kV according to patient size.? ? COMPARISON:? None. ? FINDINGS:? Image quality:? Excellent.? ? ABDOMEN:? Lung bases:? Lung bases are clear.? Heart size is normal.? Mild mitral annular calcification.? No hiatal hernia.? ? Solid organs:? There are surgical clips in the gallbladder fossa resulting in artifact.? Given this, the unenhanced appearance of the liver, biliary tree, pancreas, spleen, and adrenal glands are normal.? There is chronic appearing right renal atrophy.? There is prominence of the left extrarenal pelvis.? No urinary calcifications or hydroureter. ? Peritoneum and bowel:? No free fluid or free air.? There is mild wall thickening of the distal stomach without significant perigastric inflammation or fluid.? Small bowel loops are decompressed.? Normal appendix.? No visible pericolonic inflammation.? Descending colon, sigmoid colon, and rectum are decompressed.? Mild fullness in the distal rectum may be due to redundancy and is not well evaluated on this exam. ? Nodes and vessels:? No retroperitoneal or mesenteric adenopathy by size criteria.? Aorta and inferior vena cava are normal in caliber.? Moderate abdominal aortic atherosclerotic calcification.? ? Miscellaneous:? Tiny fat containing umbilical hernia.? ? ? PELVIS:? Genitourinary:? Bladder wall thickness is normal.? ? Miscellaneous:? No inguinal hernias or adenopathy.? ? Bones:? Left hip arthroplasty components cause streak artifact across the pelvis.? Prominent rightward scoliotic curvature.? Degenerative sclerosis at the right femoroacetabular joint.? No acute fractures. ? IMPRESSION:? ? 1. Possible gastric antrum mural thickening without adjacent inflammation or free air. ? 2. Slight nonspecific fullness of the distal rectum, most likely due to redundancy.? Clinical correlation is recommended. ? 3. Chronically diminutive right kidney.? ? ? Dictated by: Karine Schaffer M.D. on 10/25/2022 at 17:57 ? ? Approved by: Karine Schaffer M.D. on 10/25/2022 at 18:03 ? MDM Narrative Medical decision making narrative: Patient here with daughter for complaints rectal bleeding for the last 3 days. Now starting to feel short of breath weak and dizzy. She is changing a pad every hour. Patient has history atrial fibrillation and is on Eliquis. Last Eliquis taken was Sunday night. This is now Sunday afternoon. Patient never had bleeding from Eliquis before. Vital signs reviewed. Patient is not toxic. Denies abdominal pain. Patient's daughter and Female Nurse Devika at bedside to health physics technician for rectal exam After history and exam CBC CMP PT PTT type and screen cardiac tech MDM CC: Rectal bleeding Complicating co-morbidities: On Eliquis Data collected from: Patient and daughter Medical records reviewed: No recent visit for this complaint Differential considered: Includes but not limited to upper GI bleed lower GI bleed Exam documented above, pertinent findings include: Dark blood clots per rectum Lab Test results independently reviewed as above. Pertinent findings: WBC 15.1 hemoglobin 13.1 hematocrit 38.5 platelets 211 INR 1.2 sodium 136 potassium 3.7 bicarb 28 BUN 36 creatinine 1.19 Independently reviewed EKG atrial fibrillation no RVR rate [address] elevation or depression Imaging studies independently reviewed: CT abdomen pelvis possible gastric antrum mural thickening without free air Consultations: 6:10 p.m.. Spoke with general surgery Dr. Ely, he will follow in consult. 6:30 p.m.. Spoke with hospitalist, Dr. Tran, he will admit patient observation Treatments: Protonix Re-evaluations: Updated patient and family results. They do agree for admission for observation. Discussion: Appropriate for admission. Patient on blood thinner. BUN is elevated likely indicating upper GI bleed. Patient is changing 1 pad per hour. I did review with general surgeon and will follow in consult. Diagnosis: GI bleed Discharge Plan Departure Patient Disposition: Admitted as Observation Clinical Impression: Acute GI bleeding
--- NOTE | 2022-10-25 16:09 | PC.NURSE ---
Attempted IV starts with no success. Contacted another RN for US IV
[2022-10-25 16:33] LABS: INR 1.2 (0.9-1.3); Prothrombin Time 14.1 SECONDS (10.1-12.7)
[2022-10-25 16:36] LABS: PTT Partial Thromboplastin Tim 27 SECONDS (26-36)
[2022-10-25 16:40] LABS: Alanine Aminotransferase 87 IU/L (<35); Albumin Globulin Ratio 1.1 (1.0-2.8); Alkaline Phosphatase 81 U/L (38-126); Aspartate Aminotransferase 49 IU/L (14-36); BUN Creatinine Ratio 30.3 (6-22); Bilirubin Total 0.5 mg/dL (0.2-1.3); Blood Urea Nitrogen 36 mg/dL (7-17); Calcium 9.1 mg/dL (8.4-10.2); Carbon Dioxide 28 mmol/L (22-32); Chloride 99 mmol/L (98-107); Estimated Glomerular Filt Rate 45 mL/min (>60); Globulin 3.5 g/dL (1.7-4.1); Glucose 92 mg/dL (80-110); HEMOLYSIS 34 (0-50); Potassium 3.7 mmol/L (3.4-5.1); Sodium 136 mmol/L (137-145); Total Protein 7.5 g/dL (6.3-8.2)
[2022-10-25 16:54] LABS: Basophils Absolute Auto 100 /uL (0-100); Basophils Percent Auto 0.6 % (0-2); Eosinophils Absolute Auto 100 /uL (0-450); Eosinophils Percent Auto 0.4 % (2-4); Hematocrit 38.5 % (36-46); Hemoglobin 13.1 g/dL (12.0-16.0); Lymphocytes Absolute Auto 3000 /uL (1100-4500); Lymphocytes Percent Auto 20.1 % (25-40); Mean Corpuscular HGB Conc 33.9 % (30-36); Mean Corpuscular Hemoglobin 33.6 PG (26-34); Mean Corpuscular Volume 99.2 fL (80-100); Monocytes Absolute Auto 1800 /uL (0-900); Monocytes Percent Auto 12.1 % (3-14); Neutrophils Absolute Auto 10100 /uL (1500-7000); Neutrophils Percent Auto 66.8 % (50-75); Platelet Count 211 X10^3/uL (150-400); Red Blood Cell Count 3.89 X10^6/uL (4.0-5.2); Red Cell Distribution Width 14.3 % (11.6-14.8); White Blood Cell Count 15.1 X10^3/uL (4.5-11.0)
[2022-10-25 17:02] LABS: Add Manual Diff / Slide Review SLIDE REVIEW
[2022-10-25 17:03] LABS: Platelet Estimate Adequate on smear; RBC Morphology Normal Morphology
--- NOTE | 2022-10-25 17:15 | DI.CT.S_ITS ---
PROCEDURE: CT ABDOMEN PELVIS WO CON INDICATIONS: GI bleed TECHNIQUE: Noncontrast 5 mm thick sections acquired from the diaphragms to the symphysis. 5 mm coronal and sagittal reformats were then performed. For radiation dose reduction, the following was used: automated exposure control, adjustment of mA and/or kV according to patient size. COMPARISON: None. FINDINGS: Image quality: Excellent. ABDOMEN: Lung bases: Lung bases are clear. Heart size is normal. Mild mitral annular calcification. No hiatal hernia. Solid organs: There are surgical clips in the gallbladder fossa resulting in artifact. Given this, the unenhanced appearance of the liver, biliary tree, pancreas, spleen, and adrenal glands are normal. There is chronic appearing right renal atrophy. There is prominence of the left extrarenal pelvis. No urinary calcifications or hydroureter. Peritoneum and bowel: No free fluid or free air. There is mild wall thickening of the distal stomach without significant perigastric inflammation or fluid. Small bowel loops are decompressed. Normal appendix. No visible pericolonic inflammation. Descending colon, sigmoid colon, and rectum are decompressed. Mild fullness in the distal rectum may be due to redundancy and is not well evaluated on this exam. Nodes and vessels: No retroperitoneal or mesenteric adenopathy by size criteria. Aorta and inferior vena cava are normal in caliber. Moderate abdominal aortic atherosclerotic calcification. Miscellaneous: Tiny fat containing umbilical hernia. PELVIS: Genitourinary: Bladder wall thickness is normal. Miscellaneous: No inguinal hernias or adenopathy. Bones: Left hip arthroplasty components cause streak artifact across the pelvis. Prominent rightward scoliotic curvature. Degenerative sclerosis at the right femoroacetabular joint. No acute fractures. IMPRESSION: 1. Possible gastric antrum mural thickening without adjacent inflammation or free air. 2. Slight nonspecific fullness of the distal rectum, most likely due to redundancy. Clinical correlation is recommended. 3. Chronically diminutive right kidney. Dictated by: Karine Schaffer M.D. on 10/25/2022 at 17:57 Approved by: Karine Schaffer M.D. on 10/25/2022 at 18:03
[2022-10-25] MEDS: PANTOPRAZOLE 40 MG VIAL IV (19:42)
--- NOTE | 2022-10-25 23:07 | PM.HP.1 ---
History of Present Illness History of Present Illness Chief complaint: bleeding hemroides Narrative: 87 years old female with 3 of hypertension, hyperlipidemia, CAD, atrial fibrillation on Eliquis, chronic back pain, hypothyroidism, constipation, presented to the ED with lower GI bleed in the last 3 days. The patient had bowel movements with bright red blood mixed with the stools. She also was complaining of lightheadedness on standing position but denies any chest pain, shortness of breath, nausea, vomiting, abdominal pain, diaphoresis or dysuria. The patient was seen in the ER with a single 4 allergic reaction to amoxicillin after she was prescribed for your infection. The patient was started on prednisone and discharged home. Her last colonoscopy was more than 10 years ago. Denies using any use of NSAIDs on a regular basis. [facility] Medical History Atrial fibrillation Chicken pox Chronic back pain Chronic kidney disease Chronic pain Claudication of lower extremity DDD (degenerative disc disease), lumbar Edema Former smoker Genital herpes Gout Hearing loss Heart palpitations Hemorrhoid History of urinary incontinence HTN (hypertension) Hypothyroidism Kidney disease (~2015) Left knee pain Neuropathy Osteoarthritis Osteoporosis Pneumonia (05/22/16) Right knee pain Scoliosis Screening for malignant neoplasm of colon Shoulder pain Skin cancer Warfarin anticoagulation Surgical History Anesthesia History of carpal tunnel release (~2008) History of hysterectomy (~01/1990) History of left hip replacement (~2016) Hx of bladder repair surgery (~1992) Hx of cholecystectomy (~1979) Hx of shoulder surgery (~2006) Status post bilateral cataract extraction (~2004) Family History Father Cancer Mother Suicide Brother Hypertension Sister Pneumonia Grandfather Diabetes mellitus Family/Other Cancer Social History household members: none Smoking Status: Former smoker Meds Home Medications and Allergies Home Medications Medication Instructions Recorded Confirmed Type Neuropaway 240 mg PO DAILY #180 caps 06/28/21 10/10/22 Rx calcium carbonate 500 mg calcium 500 mg PO DAILY #90 tabs 06/30/21 10/10/22 Rx (1,250 mg) chewable tablet cholecalciferol (vitamin D3) 25 25 mcg PO DAILY #90 caps 06/30/21 10/10/22 Rx mcg (1,000 unit) capsule apixaban 5 mg tablet (Eliquis) See Rx Instructions .Route 10/10/21 10/10/22 Rx .COMPLEX #60 ea levothyroxine 25 mcg tablet See Rx Instructions .Route 05/29/22 10/10/22 Rx .COMPLEX #100 ea colchicine 0.6 mg tablet 0.6 mg PO BID PRN gout flare #20 07/24/22 10/10/22 Rx tabs diltiazem HCl 180 mg capsule,24 180 mg PO QAM #90 caps 07/24/22 10/10/22 Rx hr,extended release docusate sodium 100 mg capsule See Rx Instructions .Route 07/24/22 10/10/22 Rx .COMPLEX #60 ea furosemide 40 mg tablet 40 mg PO DAILY 07/24/22 10/10/22 History gabapentin 100 mg capsule See Rx Instructions .Route 07/24/22 10/10/22 Rx .COMPLEX #60 ea gabapentin 300 mg capsule 600 mg PO HS #180 caps 07/24/22 10/25/22 Rx (Neurontin) cmpposrjgnp-pjlrrunyi-qjh C-Mn 500 1 cap PO TID #90 caps 07/24/22 10/10/22 Rx mg-400 mg capsule (Glucosamine Chondroitin Maximum Strength) magnesium hydroxide 400 mg/5 mL 30 ml PO DAILY PRN constipation 07/24/22 10/10/22 Rx oral suspension (Milk of Magnesia) #473 mL metoprolol succinate 50 mg 100 mg PO DAILY #180 tabs 07/24/22 10/10/22 Rx tablet,extended release 24 hr multivitamin 1 tab PO DAILY #90 tabs 07/24/22 10/10/22 Rx nitroglycerin 0.4 mg sublingual See Rx Instructions .Route 07/24/22 10/10/22 Rx tablet .COMPLEX #25 ea tramadol 50 mg tablet 50 mg PO BID #60 ea 08/11/22 10/10/22 Rx valacyclovir 1 gram tablet See Rx Instructions .Route 10/09/22 10/10/22 Rx .COMPLEX #15 ea prednisone 20 mg tablet 40 mg PO DAILY #10 tabs 10/19/22 Rx epinephrine 0.3 mg/0.3 mL 0.3 mg (0.3 mL) IM Q5-15M PRN 10/21/22 Rx injection, auto-injector (EpiPen anaphylaxis #2 ea 2-Chau) epinephrine 0.3 mg/0.3 mL 0.3 mg (0.3 mL) IM Q5-15M PRN 10/21/22 Rx injection, auto-injector (EpiPen anaphylaxis #2 ea 2-Chau) prednisone 20 mg tablet 40 mg PO DAILY #4 tabs 10/21/22 Rx Allergies Allergy/AdvReac Type Severity Reaction Status Date / Time amoxicillin Allergy Severe Swelling Verified 10/21/22 14:26 of Lip/Tongue/Throat celecoxib [From Celebrex] AdvReac Severe Kidney Verified 10/21/22 14:26 failure codeine [CODEINE] AdvReac Mild Nausea, Verified 10/21/22 14:26 vomiting Review of Systems Constitutional Constitutional: Reports as per HPI and Reports system reviewed and no additional complaints, except as documented Eyes Eyes: Reports as per HPI and Reports system reviewed and no additional complaints, except as documented ENT Ears, Nose, Mouth, and Throat: Yes as per HPI, Yes system reviewed and no additional complaints, except as documented, No dysphagia, No neck pain and No odynophagia Cardiovascular Cardiovascular: Reports system reviewed and no additional complaints, except as documented Respiratory Respiratory: Reports system reviewed and no additional complaints, except as documented Gastrointestinal Gastrointestinal: Denies as per HPI, Reports system reviewed and no additional complaints, except as documented, Denies abdominal pain, Denies belching, Denies melena, Denies bloating, Denies hematochezia, Denies change in bowel habits, Denies tenesmus, Denies change in stool character, Denies coffee ground emesis, Denies constipation, Denies cramping, Denies dysphagia, Denies excessive flatus, Denies heartburn, Denies loose stools, Denies nausea, Denies odynophagia, Denies vomiting, Denies hematemesis and Reports other Musculoskeletal Musculoskeletal: Denies as per HPI, Denies system reviewed and no additional complaints, except as documented, Denies abnormal gait, Denies back pain, Denies myalgias, Denies arthralgias, Denies joint swelling, Denies muscle cramps, Denies muscle weakness, Denies neck pain, Denies numbness and Denies radiating pain into limb Neurologic Neurologic: Denies abnormal gait, Denies confusion and Denies numbness Psychiatric Psychiatric: Denies as per HPI, Reports system reviewed and no additional complaints, except as documented, Denies abnormal sleep pattern, Denies anxiety, Denies change in appetite, Denies confusion, Denies depression and Denies auditory hallucinations Exam Vital Signs (past 8 hours): - 10/25/22 15:22 10/25/22 15:23 10/25/22 15:23 Temperature Pulse Rate 87 91 H Respiratory Rate Blood Pressure 106/69 Pulse Oximetry 94 94 Oxygen Delivery Method Oxygen Flow Rate 10/25/22 15:30 10/25/22 15:30 10/25/22 16:00 Temperature Pulse Rate 94 H 91 H Respiratory Rate 17 Blood Pressure 113/64 Pulse Oximetry 97 89 L Oxygen Delivery Method Oxygen Flow Rate 10/25/22 16:23 10/25/22 16:23 10/25/22 16:30 Temperature Pulse Rate 94 H Respiratory Rate 20 Blood Pressure 132/68 138/73 Pulse Oximetry 96 Oxygen Delivery Method Oxygen Flow Rate 10/25/22 16:30 10/25/22 17:00 10/25/22 17:00 Temperature Pulse Rate 107 H 111 H Respiratory Rate 15 13 Blood Pressure 124/90 Pulse Oximetry 96 98 Oxygen Delivery Method Oxygen Flow Rate 10/25/22 17:35 10/25/22 18:00 10/25/22 18:30 Temperature Pulse Rate 113 H 108 H 119 H Respiratory Rate 14 10 L 13 Blood Pressure Pulse Oximetry 86 L 98 96 Oxygen Delivery Method Oxygen Flow Rate 10/25/22 19:00 10/25/22 19:12 10/25/22 19:12 Temperature Pulse Rate 128 H 106 H Respiratory Rate 32 H 26 H Blood Pressure 110/56 L Pulse Oximetry 95 Oxygen Delivery Method Room Air Oxygen Flow Rate 10/25/22 21:09 10/25/22 21:50 10/25/22 21:50 Temperature 96.3 F L Pulse Rate 107 H Respiratory Rate 16 Blood Pressure 110/63 Pulse Oximetry 98 Oxygen Delivery Method Room Air Room Air Oxygen Flow Rate 0 Oxygen Delivery Method Room Air Oxygen Flow Rate 0 Const General: cooperative, comfortable and well developed Orientation: alert and oriented x3 HENMT Head: normal to inspection and atraumatic Face and sinus: normal facial exam Mouth: oral mucosae normal and moist mucous membranes Throat: posterior oropharynx normal Eyes General: appearance normal, both eyes and all related structures Pupils: PERRL EOM: EOM intact bilaterally Neck Neck: normal visual inspection and full ROM Chest Chest: normal inspection of the chest Resp Effort & Inspection: normal respiratory effort and able to speak in complete sentences Auscultation: clear to auscultation bilaterally Cardio Palpation: normal PMI Rate: regular rate Rhythm: regular rhythm Heart Sounds: S1 normal and S2 normal GI Inspection: normal to inspection Palpation: soft and no hepatosplenomegaly Auscultation: normal bowel sounds Skin General: no rashes or lesions noted Neuro General: patient alert, patient awake, patient oriented x3 and no focal motor deficits Cognition: normal cognition Motor: muscle tone normal throughout Sensory Exam: no sensory deficits noted Extrem General: full ROM and no calf tenderness Psych Appearance: grossly normal Mental Status: mental status grossly normal Speech and Movement: speech and movement normal Objective Labs 10/25/22 23:09 10/25/22 16:05 Labs: Laboratory Results - last 24 hr 10/25/22 10/25/22 10/25/22 16:05 16:05 16:05 WBC 15.1 H RBC 3.89 L Hgb 13.1 Hct 38.5 MCV 99.2 MCH 33.6 MCHC 33.9 RDW 14.3 Plt Count 211 Neut % (Auto) 66.8 Lymph % (Auto) 20.1 L [place] % (Auto) 12.1 Eos % (Auto) 0.4 L Baso % (Auto) 0.6 Neut # (Auto) 79957 H Lymph # (Auto) 3000 [place] # (Auto) 1800 H Eos # (Auto) 100 Baso # (Auto) 100 Platelet Estimate Adequate on smear Plt Morphology Comment RBC Morphology Normal morphology PT 14.1 H INR 1.2 APTT 27 Sodium 136 L Potassium 3.7 Chloride 99 Carbon Dioxide 28 BUN 36 H Creatinine 1.19 H Estimated GFR 45 L BUN/Creatinine Ratio 30.3 H Glucose 92 Calcium 9.1 Total Bilirubin 0.5 AST 49 H ALT 87 H Alkaline Phosphatase 81 Total Protein 7.5 Albumin 4.0 Globulin 3.5 Albumin/Globulin Ratio 1.1 Blood Type Antibody Screen 10/25/22 16:05 WBC RBC Hgb Hct MCV MCH MCHC RDW Plt Count Neut % (Auto) Lymph % (Auto) [place] % (Auto) Eos % (Auto) Baso % (Auto) Neut # (Auto) Lymph # (Auto) [place] # (Auto) Eos # (Auto) Baso # (Auto) Platelet Estimate Plt Morphology Comment RBC Morphology PT INR APTT Sodium Potassium Chloride Carbon Dioxide BUN Creatinine Estimated GFR BUN/Creatinine Ratio Glucose Calcium Total Bilirubin AST ALT Alkaline Phosphatase Total Protein Albumin Globulin Albumin/Globulin Ratio Blood Type O Positive Antibody Screen Negative Assessment & Plan Assessment and plan (1) Acute GI bleeding: Status: Acute Plan: -Monitor H and H every 4-6 hours; will transfuse depending on dropping hemoglobin and hematocrit and hemodynamic status. -start Protonix 40 mg IV twice a day. -Keep patient NPO -Monitor hemodynamics -surgery consulted. -Patient to get off Eliquis (2) Atrial fibrillation: Qualifiers: Atrial fibrillation type: unspecified Qualified Code(s): I48.91 - Unspecified atrial fibrillation Status: Acute Plan: -restart Cardizem and metoprolol -Hold this for now (3) HTN (hypertension): Problem details: [facility] admit 05/22/16 for Afib w/RVR Qualifiers: Hypertension type: primary hypertension Qualified Code(s): I10 - Essential (primary) hypertension Status: Chronic Plan: Managed prior to admission with?metoprolol and Cardizem. - Continue with holding parameters - Continue to monitor blood pressure. (4) CKD (chronic kidney disease) stage 3, GFR 30-59 ml/min: Qualifiers: Chronic kidney disease stage 3 subtype: stage 3a (GFR 45-59) Qualified Code(s): N18.31 - Chronic kidney disease, stage 3a Status: Chronic Plan: -Continue to monitor. Avoid nephrotoxins.? (5) Chronic pain: Qualifiers: Chronic pain type: other chronic pain Qualified Code(s): G89.29 - Other chronic pain Status: Acute Plan: -restart home medications -Tylenol when necessary (6) Adverse drug reaction: Status: Acute Plan: -Benadryl when necessary Time Spent With Patient Time with patient: 50 to 69 minutes with 50% spent counseling/coordinating care Quality VTE Deep Vein Thrombosis/Pulmonary Embolism Present on Admission: No MIPS - Admit I confirm the patient?s Advance Care Plan is present, Code status is documented, Surrogate decision maker is in patient?s record [If Yes, STOP here]: Yes MIPS - Meds 'Current medications' to include all prescriptions, [id number] products, herbals, cannabis/cannabidiol products, and vitamin/mineral/dietary (nutritional) supplements. I have utilized all available resources to obtain, update, or review the patient?s current medications. [If Yes, STOP here]: Yes
[2022-10-25 23:19] LABS: Hematocrit 35.5 % (36-46); Hemoglobin 11.9 g/dL (12.0-16.0)
[2022-10-26] VITALS (15 sets, daily range): BP systolic 101–124; BP diastolic 59–74; PULSE 58–114; RESP 16–19; TEMP 35.9–36.6; O2SAT 93–98
--- NOTE | 2022-10-26 00:26 | PC.NURSE ---
Pt. was admitted by Alaina RN. oriented to her room. Encouraged to call for assistance if she needed to get up to the bathroom. No active bleeding noted, will cont. plan of care & monitor.
[2022-10-26] MEDS: GABAPENTIN 300 MG CAPSULE 600 MG PO ×2 (02:27→20:56)
[2022-10-26 05:56] LABS: Alanine Aminotransferase 68 IU/L (<35); Alkaline Phosphatase 65 U/L (38-126); Aspartate Aminotransferase 40 IU/L (14-36); BUN Creatinine Ratio 27.3 (6-22); Bilirubin Total 0.4 mg/dL (0.2-1.3); Blood Urea Nitrogen 30 mg/dL (7-17); Calcium 8.2 mg/dL (8.4-10.2); Carbon Dioxide 29 mmol/L (22-32); Chloride 103 mmol/L (98-107); Estimated Glomerular Filt Rate 49 mL/min (>60); Glucose 75 mg/dL (80-110); HEMOLYSIS 16 (0-50); Magnesium 2.1 mg/dL (1.6-2.3); Potassium 3.6 mmol/L (3.4-5.1); Sodium 136 mmol/L (137-145)
[2022-10-26] MEDS: LEVOTHYROXINE 25 MCG TABLET PO (06:07)
[2022-10-26 06:36] LABS: Add Manual Diff / Slide Review NO; Basophils Absolute Auto 100 /uL (0-100); Basophils Percent Auto 0.6 % (0-2); Eosinophils Absolute Auto 100 /uL (0-450); Eosinophils Percent Auto 1.2 % (2-4); Hemoglobin 11.5 g/dL (12.0-16.0); Lymphocytes Absolute Auto 2700 /uL (1100-4500); Lymphocytes Percent Auto 23.9 % (25-40); Mean Corpuscular HGB Conc 33.9 % (30-36); Mean Corpuscular Hemoglobin 33.3 PG (26-34); Mean Corpuscular Volume 98.3 fL (80-100); Monocytes Absolute Auto 1100 /uL (0-900); Monocytes Percent Auto 9.3 % (3-14); Neutrophils Absolute Auto 7400 /uL (1500-7000); Platelet Count 191 X10^3/uL (150-400); Red Blood Cell Count 3.46 X10^6/uL (4.0-5.2); Red Cell Distribution Width 14.2 % (11.6-14.8); White Blood Cell Count 11.4 X10^3/uL (4.5-11.0)
--- NOTE | 2022-10-26 06:41 | PC.NURSE ---
Dr. Chadwick notified lab. glucose is only 75. stated I'll give her some IVF this morning. Awaiting for order.
[2022-10-26] MEDS: DEXTROSE 5%-0.45% NS 1,000 ML 84 ML IV ×2 (06:54→18:07)
[2022-10-26] MEDS: SODIUM CHLORIDE 0.9% FLUSH 10 ML IV ×3 (06:54→20:56)
[2022-10-26] MEDS: METOPROLOL ER 50 MG TABLET 100 MG PO (08:41)
[2022-10-26] MEDS: PANTOPRAZOLE 40 MG VIAL IV ×2 (08:41→20:56)
[2022-10-26] MEDS: GABAPENTIN 100 MG CAPSULE PO (08:42)
[2022-10-26] MEDS: dilTIAZem CD 180 MG CAP PO (08:42)
--- NOTE | 2022-10-26 11:33 | CM.DANOTE ---
DCP Assessment Note patient is a 87yo female here for acute GI bleeding with a history of afib, hypertension, and CKD PCP Vielka Cheng Medicare and Medicaid TAG METER OPERATOR reviewed EMR. Per provider in rounds, surgery consult pending. TAG METER OPERATOR entered room and introduced self and role. Patient was resting in bed and appeared A/Ox4. Patient lives in [facility], where they help her with her food prep, housekeeping, and transportation. Patient also utilizes bus and sometimes daughter drives her. Daughter, Kati ([phone]) is her emergency contact. Patient wished to know the time of her tests in order to tell her daughter. Nursing staff was unsure but would try and figure out for patient. Patient reports utilizing a walker. Patient reported no other DME at this time. Patient reports not being open to SNF or HH services. Patient reports being pretty active and independent for [her] age. Plan: pending results from tests/GI bleed prognosis. Likely home with daughter to transport when medically stable. CM team will continue to follow closely for additional d/c needs that may arise. ARMANDO Braun Discharge Planning/Care Management Advanced directive,confirm from FACILITY Start: 10/25/22 22:32 Freq: Q24H Status: Active Protocol: Document 10/25/22 22:32 MP (Rec: 10/26/22 00:18 MP [id number]) Advance Directive, confirm on record Time 22:32 Person contacted pt. Copy received No CM Discharge Assessment Start: 10/26/22 11:20 Freq: Status: Active Protocol: Document 10/26/22 11:20 (Rec: 10/26/22 11:29 [id number]) Discharge Planning Assessment Assigned Employee Communications Specialist ARMANDO Raymond DPOA/Assigned Designee Name Kati Ag ([facility]) Contact Information [phone] Advance Directives? Yes: Health Care POA/Living Will Advance Directives on File No History Provided By Patient,Medical Record Prior Living Arrangements Fpc Facility Comment [facility] Household Members none Type of transporation used prior to Relies on Others admit Comment daugher, facility, or takes the bus Facility Name Admitted From: [facility] Willing to Return to Facility? Yes Independent with ADL's Yes Is patient alert and oriented? Yes Needs Assistance With Meal Prep,Home Chores / Shopping DME Already Rented / Owned FWW / Walker Barriers to Discharge Yes Comment waiting further testing Discharge Plan Home Transportation Arrangement likely daughter or cab Whiteboard Updated in Patient Room with Yes name and ext. # of Employee Communications Specialist Review Status In Process Next Review Type Continued Stay Review
[2022-10-26 14:08] LABS: Hematocrit 34.3 % (36-46); Hemoglobin 11.5 g/dL (12.0-16.0)
--- NOTE | 2022-10-26 15:26 | P.PN_ITS ---
Subjective Subjective Interval history: 87 F admitted with melena and hematochezia, continues to have both today. Discussed with surgery today with plans to obtain EGD and colonoscopy tomorrow. Prep ordered. Home apixaban discontinued. Remains on IV PPI. H/h stable this afternoon after initial drop. Exam Vital Signs (past 8 hours): - 10/26/22 08:00 10/26/22 08:41 10/26/22 11:00 Temperature 97.9 F Pulse Rate 114 H Respiratory Rate 18 Blood Pressure 109/74 109/74 114/67 Pulse Oximetry 98 Oxygen Delivery Method 10/26/22 10:00 Temperature Pulse Rate Respiratory Rate Blood Pressure Pulse Oximetry 96 Oxygen Delivery Method Room Air Oxygen Delivery Method Room Air Oxygen Flow Rate 0 Narrative Exam Narrative: General:? Patient is well developed and well nourished, in no distress at this time. HEENT:? Normocephalic, atraumatic, extraocular muscles intact, oral pharynx is clear and mucous membranes are moist. Neck: supple and symmetric, trachea is midline, no cervical adenopathy. Negative for JVD Chest:? Normal AP diameter and contour without kyphoscoliosis, no tachypnea, e qual chest rise bilaterally. Lungs:? CTA b/l no wheezing rhonchi or rales. Cardio:?RRR no m/r/g. Abdomen: S NT ND. No CVA tenderness. Musculoskeletal:? Muscle strength and tone are equal within normal limits, no deformity. Extremities: No edema or joint effusions. No cyanosis or clubbing. Skin:? Pale,? Warm to touch,dry and intact without rashes, ulcerations or petechiae.? Neuro:? Alert and orientated x3,? sensation to touch intact in all extremities, no gross deficits noted of cranial nerves. Psych:? Patient has a well-kept appearance, appropriate affect, mental status attitude thought context and judgment are appropriate for age. Objective Labs 10/26/22 13:59 10/26/22 04:56 Labs: Laboratory Results - last 24 hr 10/25/22 10/25/22 10/25/22 16:05 16:05 16:05 WBC 15.1 H RBC 3.89 L Hgb 13.1 Hct 38.5 MCV 99.2 MCH 33.6 MCHC 33.9 RDW 14.3 Plt Count 211 Neut % (Auto) 66.8 Lymph % (Auto) 20.1 L [place] % (Auto) 12.1 Eos % (Auto) 0.4 L Baso % (Auto) 0.6 Neut # (Auto) 87172 H Lymph # (Auto) 3000 [place] # (Auto) 1800 H Eos # (Auto) 100 Baso # (Auto) 100 Platelet Estimate Adequate on smear Plt Morphology Comment RBC Morphology Normal morphology PT 14.1 H INR 1.2 APTT 27 Sodium 136 L Potassium 3.7 Chloride 99 Carbon Dioxide 28 BUN 36 H Creatinine 1.19 H Estimated GFR 45 L BUN/Creatinine Ratio 30.3 H Glucose 92 Calcium 9.1 Magnesium Total Bilirubin 0.5 AST 49 H ALT 87 H Alkaline Phosphatase 81 Total Protein 7.5 Albumin 4.0 Globulin 3.5 Albumin/Globulin Ratio 1.1 Blood Type Antibody Screen 10/25/22 10/25/22 10/26/22 16:05 23:09 04:56 WBC RBC Hgb 11.9 L Hct 35.5 L MCV MCH MCHC RDW Plt Count Neut % (Auto) Lymph % (Auto) [place] % (Auto) Eos % (Auto) Baso % (Auto) Neut # (Auto) Lymph # (Auto) [place] # (Auto) Eos # (Auto) Baso # (Auto) Platelet Estimate Plt Morphology Comment RBC Morphology PT INR APTT Sodium 136 L Potassium 3.6 Chloride 103 Carbon Dioxide 29 BUN 30 H Creatinine 1.10 H Estimated GFR 49 L BUN/Creatinine Ratio 27.3 H Glucose 75 L Calcium 8.2 L Magnesium 2.1 Total Bilirubin 0.4 AST 40 H ALT 68 H Alkaline Phosphatase 65 Total Protein 6.0 L Albumin 3.0 L Globulin 3.0 Albumin/Globulin Ratio 1.0 Blood Type O Positive Antibody Screen Negative 10/26/22 10/26/22 06:17 13:59 WBC 11.4 H RBC 3.46 L Hgb 11.5 L 11.5 L Hct 34.0 L 34.3 L MCV 98.3 MCH 33.3 MCHC 33.9 RDW 14.2 Plt Count 191 Neut % (Auto) 65.0 Lymph % (Auto) 23.9 L [place] % (Auto) 9.3 Eos % (Auto) 1.2 L Baso % (Auto) 0.6 Neut # (Auto) 7400 H Lymph # (Auto) 2700 [place] # (Auto) 1100 H Eos # (Auto) 100 Baso # (Auto) 100 Platelet Estimate Plt Morphology Comment RBC Morphology PT INR APTT Sodium Potassium Chloride Carbon Dioxide BUN Creatinine Estimated GFR BUN/Creatinine Ratio Glucose Calcium Magnesium Total Bilirubin AST ALT Alkaline Phosphatase Total Protein Albumin Globulin Albumin/Globulin Ratio Blood Type Antibody Screen [facility] Medical History Atrial fibrillation Chicken pox Chronic back pain Chronic kidney disease Chronic pain Claudication of lower extremity DDD (degenerative disc disease), lumbar Edema Former smoker Genital herpes Gout Hearing loss Heart palpitations Hemorrhoid History of urinary incontinence HTN (hypertension) Hypothyroidism Kidney disease (~2015) Left knee pain Neuropathy Osteoarthritis Osteoporosis Pneumonia (05/22/16) Right knee pain Scoliosis Screening for malignant neoplasm of colon Shoulder pain Skin cancer Warfarin anticoagulation Surgical History Anesthesia History of carpal tunnel release (~2008) History of hysterectomy (~01/1990) History of left hip replacement (~2016) Hx of bladder repair surgery (~1992) Hx of cholecystectomy (~1979) Hx of shoulder surgery (~2006) Status post bilateral cataract extraction (~2004) Family History Father Cancer Mother Suicide Brother Hypertension Sister Pneumonia Grandfather Diabetes mellitus Family/Other Cancer Social History household members: none Smoking Status: Former smoker Assessment & Plan Assessment & Plan narrative: (1) Acute GI bleeding with acute blood loss anemia - unclear if upper or lower given both hematochezia and melena. Gastric thickening on CT - continue IV PPI BID - NPO @ [place], prep today - eliquis stopped ? ? (2) Atrial fibrillation, paroxysmal - continue home medications as noted below (3) HTN (hypertension): ? ? ? Managed prior to admission with?metoprolol and Cardizem. - Continue with holding parameters - Continue to monitor blood pressure. (4) CKD (chronic kidney disease) stage 3, GFR 30-59 ml/min: ? ? ? -Continue to monitor. Avoid nephrotoxins.? (5) Chronic pain: ? ? -restart home medications -Tylenol when necessary Code: Full DVT: SCD Discussed with general surgery today. Discussed plan with case management and patinet. Dispo: change to inpatient, EGD and c-scope tomorrow. Discharge depending on results. Quality VTE Deep Vein Thrombosis/Pulmonary Embolism Present on Admission: No
[2022-10-26] MEDS: PEG3350/SOD SULF,BICARB,CL/KCL 4,000 ML SOLUTION 4000 ML PO (17:30)
[2022-10-26] MEDS: ACETAMINOPHEN 325 MG TABLET 650 MG PO (18:07)
[2022-10-27] VITALS (18 sets, daily range): BP systolic 92–145; BP diastolic 46–83; PULSE 77–122; RESP 10–20; TEMP 35.9–36.7; O2SAT 92–98; BMI 35.9
--- NOTE | 2022-10-27 | PATH_ITS ---
[facility] Accession Number: [id number] No. of containers..03 Tissue . 01 Material submitted: . PART A: gastrointestinal site - GASTRIC ANTRUM PART B: esophagus, E-G Junction - GE JUNCTION PART C: cecum - CECAL POLYP . 01 Diagnosis: A. Stomach, Antrum, Biopsy: Antral mucosa with reactive gastropathy and focal features suggestive of nearby erosion. No evidence of Helicobacter on H/E stain. Negative for intestinal metaplasia. Negative for dysplasia and malignancy. . B. Gastroesophageal Junction, Biopsy: Squamous mucosa with no diagnostic abnormality. Intraepithelial eosinophils are not increased. Negative for dysplasia and malignancy. . C. Cecum, Polyp: Tubular adenoma. [facility] 11/06/2022 1530 Local . 01 Electronically signed: . Eav Mcmanus MD, Pathologist NPI- [id number] . 01 Gross description: . Part A: GASTRIC ANTRUM: Received in formalin are 3 fragment(s) of martin, soft tissue measuring 0.1 x 0.1 x 0.1 cm to 0.4 x 0.3 x 0.3 cm submitted entirely in 1 cassette(s) Part B: GE JUNCTION: Received in formalin is 1 fragment(s) of martin, soft tissue measuring 0.3 x 0.2 x 0.2 cm submitted entirely in 1 cassette(s) Part C: CECAL POLYP: Received in formalin are 2 fragment(s) of martin, soft tissue measuring 0.2 x 0.2 x 0.2 cm to 0.3 x 0.3 x 0.2 cm submitted entirely in 1 cassette(s) /[facility] 11/02/2022 0048 Local . 01 Pathologist provided ICD-10: D12.0 . 01 CPT . 663502, 828708, [id number] Specimen Comment: A courtesy copy of this report has been sent to [facility] Pathology Performed at: 01 [facility] [address] [facility], [place], [place] [id number] MD Derrell White MD Phone: [phone]
[2022-10-27] MEDS: DEXTROSE 5%-0.45% NS 1,000 ML 84 ML IV ×2 (05:38→20:08)
[2022-10-27] MEDS: LEVOTHYROXINE 25 MCG TABLET PO (06:21)
[2022-10-27 08:28] LABS: Add Manual Diff / Slide Review NO; Basophils Absolute Auto 100 /uL (0-100); Basophils Percent Auto 1.1 % (0-2); Eosinophils Absolute Auto 300 /uL (0-450); Eosinophils Percent Auto 3.3 % (2-4); Hematocrit 33.4 % (36-46); Lymphocytes Absolute Auto 1500 /uL (1100-4500); Lymphocytes Percent Auto 19.1 % (25-40); Mean Corpuscular Hemoglobin 33.1 PG (26-34); Mean Corpuscular Volume 100.2 fL (80-100); Monocytes Absolute Auto 900 /uL (0-900); Monocytes Percent Auto 12.1 % (3-14); Neutrophils Absolute Auto 4900 /uL (1500-7000); Neutrophils Percent Auto 64.4 % (50-75); Platelet Count 160 X10^3/uL (150-400); Red Blood Cell Count 3.33 X10^6/uL (4.0-5.2); Red Cell Distribution Width 14.4 % (11.6-14.8); White Blood Cell Count 7.6 X10^3/uL (4.5-11.0)
[2022-10-27 08:38] LABS: Alanine Aminotransferase 56 IU/L (<35); Albumin 2.8 g/dL (3.5-5.0); Albumin Globulin Ratio 1.1 (1.0-2.8); Alkaline Phosphatase 57 U/L (38-126); Aspartate Aminotransferase 35 IU/L (14-36); BUN Creatinine Ratio 19.1 (6-22); Bilirubin Total 0.3 mg/dL (0.2-1.3); Blood Urea Nitrogen 18 mg/dL (7-17); Calcium 8.1 mg/dL (8.4-10.2); Carbon Dioxide 33 mmol/L (22-32); Chloride 106 mmol/L (98-107); Estimated Glomerular Filt Rate 59 mL/min (>60); Globulin 2.6 g/dL (1.7-4.1); Glucose 92 mg/dL (80-110); HEMOLYSIS 18 (0-50); Magnesium 2.1 mg/dL (1.6-2.3); Potassium 3.2 mmol/L (3.4-5.1); Sodium 141 mmol/L (137-145); Total Protein 5.4 g/dL (6.3-8.2)
[2022-10-27] MEDS: GABAPENTIN 100 MG CAPSULE PO (09:39)
[2022-10-27] MEDS: METOPROLOL ER 50 MG TABLET 100 MG PO (09:40)
[2022-10-27] MEDS: SODIUM CHLORIDE 0.9% FLUSH 10 ML IV ×2 (09:40→20:35)
[2022-10-27] MEDS: PANTOPRAZOLE 40 MG VIAL IV ×2 (09:40→20:34)
[2022-10-27] MEDS: ACETAMINOPHEN 325 MG TABLET 650 MG PO (09:42)
[2022-10-27] MEDS: TRAMADOL 50 MG TABLET PO (10:47)
[2022-10-27] MEDS: dilTIAZem CD 180 MG CAP PO (10:47)
--- NOTE | 2022-10-27 10:59 | CM.DPNOTE ---
Discharge Planning Note: EGD/colonoscopy pending. Per notes, discharge will depend on results. Patient is weak and hasn't really eaten for a few days per daughter Kati who is in room with her this morning. PLAN: Follow up on results and patient status to identify discharge needs. Elizabeth Hitchcock RN/DCP
--- NOTE | 2022-10-27 14:10 | PM.PN.1 ---
Subjective Subjective Interval history: 87 yo F on apixaban for afib admitted with melena and hematochezia. Has not had further melena since yesterday. H/H stable since yesterday. Awaiting scope. Exam Vital Signs (past 8 hours): - 10/27/22 08:00 10/27/22 13:58 Temperature 97.3 F L Pulse Rate 94 H 84 Respiratory Rate 17 Blood Pressure 95/64 111/46 L Pulse Oximetry 95 Oxygen Flow Rate 0 Oxygen Delivery Method Room Air Oxygen Flow Rate 0 Narrative Exam Narrative: Gen: alert, NAD Lungs: clear Ext: no edema Neuro: nl affect and speech Objective Labs 10/27/22 08:13 10/27/22 08:13 Labs: Laboratory Results - last 24 hr 10/27/22 10/27/22 08:13 08:13 WBC 7.6 RBC 3.33 L Hgb 11.0 L Hct 33.4 L MCV 100.2 H MCH 33.1 MCHC 33.0 RDW 14.4 Plt Count 160 Neut % (Auto) 64.4 Lymph % (Auto) 19.1 L [place] % (Auto) 12.1 Eos % (Auto) 3.3 Baso % (Auto) 1.1 Neut # (Auto) 4900 Lymph # (Auto) 1500 [place] # (Auto) 900 Eos # (Auto) 300 Baso # (Auto) 100 Sodium 141 Potassium 3.2 L Chloride 106 Carbon Dioxide 33 H BUN 18 H Creatinine 0.94 Estimated GFR 59 L BUN/Creatinine Ratio 19.1 Glucose 92 Calcium 8.1 L Magnesium 2.1 Total Bilirubin 0.3 AST 35 ALT 56 H Alkaline Phosphatase 57 Total Protein 5.4 L Albumin 2.8 L Globulin 2.6 Albumin/Globulin Ratio 1.1 PFSH Medical History Atrial fibrillation Chicken pox Chronic back pain Chronic kidney disease Chronic pain Claudication of lower extremity DDD (degenerative disc disease), lumbar Edema Former smoker Genital herpes Gout Hearing loss Heart palpitations Hemorrhoid History of urinary incontinence HTN (hypertension) Hypothyroidism Kidney disease (~2015) Left knee pain Neuropathy Osteoarthritis Osteoporosis Pneumonia (05/22/16) Right knee pain Scoliosis Screening for malignant neoplasm of colon Shoulder pain Skin cancer Warfarin anticoagulation Surgical History Anesthesia History of carpal tunnel release (~2008) History of hysterectomy (~01/1990) History of left hip replacement (~2016) Hx of bladder repair surgery (~1992) Hx of cholecystectomy (~1979) Hx of shoulder surgery (~2006) Status post bilateral cataract extraction (~2004) Family History Father Cancer Mother Suicide Brother Hypertension Sister Pneumonia Grandfather Diabetes mellitus Family/Other Cancer Social History household members: none Smoking Status: Former smoker Assessment & Plan Assessment & Plan narrative: (1) Acute GI bleeding with acute blood loss anemia ?- unclear if upper or lower given both hematochezia and melena. Gastric thickening on CT ?- continue IV PPI BID ?- NPO @ [facility], awaiting EGD and c-scope ?- eliquis stopped ? ? (2) Atrial fibrillation, paroxysmal ?- continue home medications as noted below - no diagnosis of CHF but takes Lasix 40 mg qd at home (currently holding) (3) HTN (hypertension): - Managed prior to admission with?metoprolol and Cardizem. - Continue with holding parameters - Continue to monitor blood pressure. (4) CKD (chronic kidney disease) stage 3, GFR 30-59 ml/min: -Continue to monitor. Avoid nephrotoxins.? (5) Chronic pain: -restart home medications -Tylenol when necessary Code: Full DVT: SCD Quality VTE Deep Vein Thrombosis/Pulmonary Embolism Present on Admission: No
[2022-10-27] MEDS: LACTATED RINGERS 1,000 ML 42 ML IV (15:05)
--- NOTE | 2022-10-27 16:20 | P.CONS_ITS ---
History of Present Illness Consult details Date Patient Seen: 10/27/22 Time Patient Seen: 16:20 Chief complaint: Gastrointestinal bleeding Reason for consult: GI bleeding Requesting provider: Hugo Smith Narrative: 87-year-old female who presents to the emergency room as of Sunday this week for GI bleeding. She states that the bleeding began on Sunday and was very heavy at the time. By Sunday or Sunday the bleeding has not stopped and she was starting to feel lightheaded on occasion. She denies shortness of breath or chest pain and has not had a transfusion since she is been hospitalized. In the emergency room she was admitted to [facility] and underwent a prep for colonoscopy yesterday evening which went all right. At this time and in general she said she denies a lot of abdominal pain. She states she has no family history of colon cancer and she does take Eliquis for atrial fibrillation which she is in at all times however she stopped it herself the day before presenting to the emergency room because of GI bleeding. She states that there is no history of known of diverticula and her last colonoscopy was over 10 years ago. She says there is no reason why she might have been dehydrated prior to the onset of the bleeding denies a GI illness nausea vomiting or strenuous outdoor activity. She has no other sick contacts. Never had bleeding like this before and states that it is relatively bright but sometimes brownish blood that is mixed in with the stool it starts and stops but can bleed profusely for some period of time. She is had no bleeding today but she did have bleeding in the hospital yesterday that was a brighter color red. Her daughter is with her at the bedside and also helps provide the history. Meds Home Medications and Allergies Home Medications Medication Instructions Recorded Confirmed Type cholecalciferol (vitamin D3) 25 25 mcg PO DAILY #90 caps 06/30/21 10/26/22 Rx mcg (1,000 unit) capsule apixaban 5 mg tablet (Eliquis) See Rx Instructions .Route 10/10/21 10/26/22 Rx .COMPLEX #60 ea levothyroxine 25 mcg tablet See Rx Instructions .Route 05/29/22 10/26/22 Rx .COMPLEX #100 ea colchicine 0.6 mg tablet 0.6 mg PO BID PRN gout flare #20 07/24/22 10/26/22 Rx tabs diltiazem HCl 180 mg capsule,24 180 mg PO QAM #90 caps 07/24/22 10/26/22 Rx hr,extended release docusate sodium 100 mg capsule See Rx Instructions .Route 07/24/22 10/26/22 Rx .COMPLEX #60 ea furosemide 40 mg tablet 40 mg PO DAILY 07/24/22 10/26/22 History gabapentin 100 mg capsule See Rx Instructions .Route 07/24/22 10/26/22 Rx .COMPLEX #60 ea gabapentin 300 mg capsule 600 mg PO HS #180 caps 07/24/22 10/25/22 Rx (Neurontin) [id number] C-Mn 500 1 cap PO TID #90 caps 07/24/22 10/26/22 Rx mg-400 mg capsule (Glucosamine Chondroitin Maximum Strength) magnesium hydroxide 400 mg/5 mL 30 ml PO DAILY PRN constipation 07/24/22 10/26/22 Rx oral suspension (Milk of Magnesia) #473 mL metoprolol succinate 50 mg 100 mg PO DAILY #180 tabs 07/24/22 10/26/22 Rx tablet,extended release 24 hr multivitamin 1 tab PO DAILY #90 tabs 07/24/22 10/26/22 Rx nitroglycerin 0.4 mg sublingual See Rx Instructions .Route 07/24/22 10/26/22 Rx tablet .COMPLEX #25 ea tramadol 50 mg tablet 50 mg PO BID #60 ea 08/11/22 10/26/22 Rx valacyclovir 1 gram tablet See Rx Instructions .Route 10/09/22 10/26/22 Rx .COMPLEX #15 ea epinephrine 0.3 mg/0.3 mL 0.3 mg (0.3 mL) IM Q5-15M PRN 10/21/22 10/26/22 Rx injection, auto-injector (EpiPen anaphylaxis #2 ea 2-Chau) epinephrine 0.3 mg/0.3 mL 0.3 mg (0.3 mL) IM Q5-15M PRN 10/21/22 10/26/22 Rx injection, auto-injector (EpiPen anaphylaxis #2 ea 2-Chau) acetaminophen 500 mg PO TID PRN Fever Or Pain 10/26/22 10/26/22 History apixaban 5 mg tablet (Eliquis) 5 mg PO BID 10/26/22 10/26/22 History calcium carbonate 500 mg calcium 500 mg PO DAILY PRN Acid Reflux 10/26/22 10/26/22 History (1,250 mg) chewable tablet phenazopyridine 100 mg tablet 100 mg PO TID PRN Bladder Spasms 10/26/22 10/26/22 History Allergies Allergy/AdvReac Type Severity Reaction Status Date / Time amoxicillin Allergy Severe Swelling Verified 10/21/22 14:26 of Lip/Tongue/Throat celecoxib [From Celebrex] AdvReac Severe Kidney Verified 10/21/22 14:26 failure codeine [CODEINE] AdvReac Mild Nausea, Verified 10/21/22 14:26 vomiting Exam Vital Signs (past 8 hours): - 10/27/22 13:58 10/27/22 12:00 10/27/22 15:05 Temperature 97.1 F L 97.4 F L Pulse Rate 84 109 H Respiratory Rate 17 16 Blood Pressure 111/46 L 114/72 Pulse Oximetry 94 Oxygen Delivery Method Room Air Oxygen Delivery Method Room Air Oxygen Flow Rate 0 Const General: cooperative, healthy appearing and comfortable Orientation: alert, awake and oriented x3 HENMT Head: normal to inspection Eyes General: appearance normal, both eyes and all related structures Resp Effort & Inspection: normal respiratory effort and able to speak in complete sentences GI Palpation: soft and tender (Mild left lower quadrant tenderness with palpation) Objective Labs 10/27/22 08:13 10/27/22 08:13 Labs: Laboratory Results - last 24 hr 10/27/22 10/27/22 08:13 08:13 WBC 7.6 RBC 3.33 L Hgb 11.0 L Hct 33.4 L MCV 100.2 H MCH 33.1 MCHC 33.0 RDW 14.4 Plt Count 160 Neut % (Auto) 64.4 Lymph % (Auto) 19.1 L Real % (Auto) 12.1 Eos % (Auto) 3.3 Baso % (Auto) 1.1 Neut # (Auto) 4900 Lymph # (Auto) 1500 Real # (Auto) 900 Eos # (Auto) 300 Baso # (Auto) 100 Sodium 141 Potassium 3.2 L Chloride 106 Carbon Dioxide 33 H BUN 18 H Creatinine 0.94 Estimated GFR 59 L BUN/Creatinine Ratio 19.1 Glucose 92 Calcium 8.1 L Magnesium 2.1 Total Bilirubin 0.3 AST 35 ALT 56 H Alkaline Phosphatase 57 Total Protein 5.4 L Albumin 2.8 L Globulin 2.6 Albumin/Globulin Ratio 1.1 [facility] Medical History Atrial fibrillation Chicken pox Chronic back pain Chronic kidney disease Chronic pain Claudication of lower extremity DDD (degenerative disc disease), lumbar Edema Former smoker Genital herpes Gout Hearing loss Heart palpitations Hemorrhoid History of urinary incontinence HTN (hypertension) Hypothyroidism Kidney disease (~2015) Left knee pain Neuropathy Osteoarthritis Osteoporosis Pneumonia (05/22/16) Right knee pain Scoliosis Screening for malignant neoplasm of colon Shoulder pain Skin cancer Warfarin anticoagulation Surgical History Anesthesia History of carpal tunnel release (~2008) History of hysterectomy (~01/1990) History of left hip replacement (~2016) Hx of bladder repair surgery (~1992) Hx of cholecystectomy (~1979) Hx of shoulder surgery (~2006) Status post bilateral cataract extraction (~2004) Family History Father Cancer Mother Suicide Brother Hypertension Sister Pneumonia Grandfather Diabetes mellitus Family/Other Cancer Social History household members: none Tobacco & Substance Use Smoking Status: Former smoker alcohol intake: current Assessment & Plan Assessment and plan (1) Acute GI bleeding: Status: Acute Assessment & Plan narrative: Patient is anticoagulated for atrial fibrillation this has been held. It is not entirely clear from the history if this is upper or lower GI bleeding and I have been asked to check an EGD and colonoscope. I discussed with the patient and her daughter at the bedside risks benefits and alternatives to these procedures. They understand the benefit of identifying possible source of bleeding and pathology a smaller chance that any intervention would be required for bleeding since there is not signs of active ongoing bleeding at this time clinically. However they understand the risk of perforation injury or other major complications and would like to proceed with the EGD and colonoscopy
--- NOTE | 2022-10-27 17:45 | PM.OP.EC ---
Operative Date/Time/Diagnoses Date of procedure: 10/27/22 Time of procedure: 17:45 Pre-op diagnosis: GI bleeding Post-op diagnosis: same Procedure & Clinicians Study performed: 1. EGD and biopsy 2. Colonoscopy and biopsy Same procedure as scheduled: Yes Indications: GI bleeding, 10 years since last screening colonoscopy Surgeon: Margarita Pichardo Procedure Notes Procedure in detail: Patient was taken to the endoscopy suite and placed in a supine position. A bite block was placed. A time-out was performed. With the help of anesthesiologist conscious sedation was induced and monitored throughout the case. The EGD scope was placed into the mouth and advanced into the esophagus without difficulty. The stomach was entered and photographs were obtained of the gastric mucosa and the pyloric region where there was some signs of gastritis. The gastric antrum was biopsied. The duodenum was entered and appeared normal a photograph was obtained. The scope was retroflexed and a photograph of the GE junction was obtained no hiatal hernia was appreciated. The scope was withdrawn into the esophagus and the GE junction was biopsied. Photograph was obtained. There was no blood in the duodenum and though there was gastritis there was no active bleeding or any sign of an upper GI source for bleeding at this time. The patient was placed in a left lateral decubitus position and the scope was switched out for the colonoscope.. A digital rectal exam was performed and there were no masses or strictures. There were 3 large external hemorrhoid piles which old dark blood upon them. Photographs were obtained of the hemorrhoids. In particular the left lateral pile was the most large and covered with clotted blood. The colonoscope was then introduced into the anal canal and advanced through to the cecum. A photograph of the appendiceal orifice was obtained. The bowel prep was good [place] bowel prep score of 2. The scope was then withdrawn for a total of 11 minutes. One small cecal polyp was seen and removed with the biopsy forceps. There was no other stigmata or sign of blood or old blood within the colon. There were very few scattered diverticula in the sigmoid colon but no signs of bleeding. The scope was then retroflexed and a photograph of the internal hemorrhoidal piles was obtained. The 1 left lateral hemorrhoid had a very large internal component as well. Upon withdrawal of the scope additional photographs were taken of the external hemorrhoids which were at this time bleeding rather profusely for hemorrhoid. A Surgicel roll was placed into the anal canal to assist with hemostasis. New mesh panties and gauze was placed over the bleeding area. Patient tolerated the procedure well and went in good condition to the postoperative care unit Findings: gastritis, internal hemorrhoids, polyp and other findings (Bleeding external/internal left lateral hemorrhoid additional right anterior and posterior external hemorrhoids were seen on exam as well.) Specimen(s): other (1. Gastric antrum 2. GE junction 3. Cecal polyp) Complications: none Impression: There was no sign of bleeding sources other than the large hemorrhoid which was seen bleeding rather profusely after the colonoscopy. I believe this is the source of her GI bleeding and distress in general and have discussed risks benefits and alternatives with her and her daughter of pursuing a hemorrhoidectomy to attempt to avoid further bleeding and be able to reach start her Eliquis. Post-procedure Plan for aftercare: Can have a regular diet on the floor and NPO after midnight we will proceed with hemorrhoidectomy in the morning. She could then restart her Eliquis in 24-48 hours afterwards if everything goes well and the surgical site is hemostatic. Would recommend a fiber supplement twice daily while she is recovering from her hemorrhoidectomy. Additionally she could be discharged home as soon as tomorrow if she does well. This plan was discussed with her and her daughter.
--- NOTE | 2022-10-27 18:11 | PC.NURSE ---
1800: Returned from OR, IV fluids restarted. BP still 100's sys. HR is 85. RA sats are 92. Hungry Tray given. Lungs still clear but sl diminished at bases with a few soft crackles. Still irreg heart rate and was in a-fib down in OR. Pt denies any pain. Cont w/plan of care.
[2022-10-27] MEDS: POTASSIUM CHLORIDE 20 MEQ TAB 40 MEQ PO (18:55)
[2022-10-27] MEDS: GABAPENTIN 300 MG CAPSULE 600 MG PO (20:34)
[2022-10-27] MEDS: PSYLLIUM HUSK 1 PACKET PO (20:34)
[2022-10-28] VITALS (16 sets, daily range): BP systolic 94–143; BP diastolic 34–81; PULSE 68–120; RESP 12–18; TEMP 36.2–36.8; O2SAT 93–99; BMI 35.9
[2022-10-28] MEDS: TRAMADOL 50 MG TABLET PO ×3 (01:03→20:50)
[2022-10-28 05:31] LABS: Add Manual Diff / Slide Review NO; Basophils Absolute Auto 100 /uL (0-100); Basophils Percent Auto 0.8 % (0-2); Eosinophils Absolute Auto 300 /uL (0-450); Eosinophils Percent Auto 3.7 % (2-4); Hematocrit 28.1 % (36-46); Hemoglobin 9.6 g/dL (12.0-16.0); Lymphocytes Absolute Auto 1400 /uL (1100-4500); Lymphocytes Percent Auto 14.6 % (25-40); Mean Corpuscular HGB Conc 34.2 % (30-36); Mean Corpuscular Hemoglobin 34.3 PG (26-34); Mean Corpuscular Volume 100.3 fL (80-100); Monocytes Absolute Auto 1000 /uL (0-900); Monocytes Percent Auto 10.8 % (3-14); Neutrophils Absolute Auto 6700 /uL (1500-7000); Neutrophils Percent Auto 70.1 % (50-75); Platelet Count 146 X10^3/uL (150-400); Red Cell Distribution Width 14.2 % (11.6-14.8); White Blood Cell Count 9.5 X10^3/uL (4.5-11.0)
[2022-10-28 05:46] LABS: Alanine Aminotransferase 44 IU/L (<35); Albumin 2.4 g/dL (3.5-5.0); Alkaline Phosphatase 58 U/L (38-126); Aspartate Aminotransferase 27 IU/L (14-36); BUN Creatinine Ratio 13.8 (6-22); Bilirubin Total 0.2 mg/dL (0.2-1.3); Blood Urea Nitrogen 13 mg/dL (7-17); Calcium 7.9 mg/dL (8.4-10.2); Carbon Dioxide 30 mmol/L (22-32); Chloride 109 mmol/L (98-107); Estimated Glomerular Filt Rate 59 mL/min (>60); Globulin 2.3 g/dL (1.7-4.1); Glucose 100 mg/dL (80-110); HEMOLYSIS < 15 (0-50); Magnesium 1.9 mg/dL (1.6-2.3); Potassium 3.9 mmol/L (3.4-5.1); Sodium 137 mmol/L (137-145); Total Protein 4.7 g/dL (6.3-8.2)
[2022-10-28] MEDS: LEVOTHYROXINE 25 MCG TABLET PO (06:16)
[2022-10-28] MEDS: DEXTROSE 5%-0.45% NS 1,000 ML 84 ML IV (06:48)
[2022-10-28] MEDS: PANTOPRAZOLE 40 MG VIAL IV (07:51)
[2022-10-28] MEDS: SODIUM CHLORIDE 0.9% FLUSH 10 ML IV ×2 (07:51→21:00)
[2022-10-28] MEDS: GABAPENTIN 100 MG CAPSULE PO ×2 (07:52→13:57)
[2022-10-28] MEDS: METOPROLOL ER 50 MG TABLET 100 MG PO (07:52)
[2022-10-28] MEDS: dilTIAZem CD 180 MG CAP PO (07:52)
--- NOTE | 2022-10-28 09:33 | PM.PREOP ---
Pre-operative Note Interval Note History & Physical reviewed/Exam performed by Physician: Yes Changes to H&P: No
--- NOTE | 2022-10-28 10:23 | SUR.OPER ---
Lithotomy on padded OR bed, head on pillow, arms secured on padded arm boards at <90 degrees abduction. Legs secured in padded yellow fins stirrups.
--- NOTE | 2022-10-28 11:20 | CM.DPNOTE ---
Addendum entered by Kate Hitchcock R.N. 10/28/22 14:26: Patient returned from hemorrhoidectomy surgery this afternoon and just voided. Called and spoke with [facility] and they cannot accept today due to there is no RN. Janett RN will be there tomorrow and they can accept. Explained this to patient and patient's daughter Kati with good understanding. PLAN: DC tomorrow if medically cleared back to [facility], call first to arrange and fax Discharge Summary and medication list. Elizabeth Hitchcock RN/DCP Original Note: Discharge Planning Note: Patient is in OR this morning for hemorrhoidectomy by Dr Pichardo. Possible discharge later if doing okay. Called [facility] and spoke with nurse George and gave her a status update and that patient could potentially dc back there today. We discussed that DCP would fax DC summary and med list. PLAN: When medically cleared, discharge home to [facility] with daughter Kati Elizabeth Hitchcock RN/DCP
[2022-10-28] MEDS: BUPIVACAINE LIPOSOME 266 MG/20 ML VIAL INJ (12:30)
[2022-10-28] MEDS: BUPIVACAINE 0.25% MDV 50 ML INJ (12:57)
--- NOTE | 2022-10-28 13:02 | PM.OP.1 ---
Operative Date/Time/Diagnoses Date of procedure: 10/28/22 Time of procedure: 13:03 Pre-op diagnosis: Bleeding hemorrhoids, external and internal 3 piles Post-op diagnosis: same Procedure & Clinicians Procedure: Hemorrhoidectomy internal and external x3 piles Same procedure as scheduled: Yes Indications: Acute bleeding on Eliquis no other source identified with upper GI and colonoscopy. Surgeon: Margarita Pichardo Click Yes if Unassisted: Yes Anesthesia Type: MAC +/- and Local Operative Notes Specimen(s): none sent Blood products transfused: none Procedure in detail: Patient was taken to the operating room and placed in a lithotomy position. Bilateral SCDs were placed. A time-out was performed. Monitored anesthetic care was induced. The perianal area was prepped with Betadine and draped in the usual fashion. Bupivacaine was used to create a local anal block. The anal area examination revealed 3 large external hemorrhoids. Anoscopy then revealed that each of these large external piles had an internal pile that was rather large associated. The largest of the piles was the left lateral which had some ulceration over lying the skin. I began the procedure addressing this pile. Using a 3-0 chromic suture I placed a [id number] above the internal hemorrhoid pile and used the tail for retraction. I used the electrocautery cut function to ernestina a line of excision in an ellipse overlying the engorged hemorrhoidal tissue. I then used a tenotomy scissor to develop the plane between hemorrhoidal tissue and anal sphincter below. Using a combination of electrocautery and scissors I removed the hemorrhoidal tissue around the area. I then used a 3-0 chromic suture and ran the lips closed using a locking stitch until reaching the anal verge switching then to a running suture. These were tied and the ends left long. Next the most problematic was the right anterior pile. This pile ran even over the midline where the sphincter muscle was thin. I used the same technique to place the chromic above the internal hemorrhoid with a [id number] suture and marked the skin and mucosa for excision using the cut function of electrocautery. I then developed the plane between the hemorrhoidal tissue and the sphincter. I noted that the sphincter muscle was somewhat thin in this region and may have been a little injured during the dissection I therefore took an additional 3-0 chromic suture and placed 3 separate interrupted loosely tied sutures through the sphincter muscle to tighten it slightly and reapproximate it. I then closed the mucosa and skin layer with the original chromic using a locking stitch until the dentate line switching to a running suture and closed this tissue over top of those deeper interrupted sutures. Finally the right posterior pile was addressed in the same fashion. This pile had a larger external component but the internal component was a smaller and it was closed easily. There was some hemorrhoidal tissue laterally that was left in an effort to preserve skin and minimize the amount of excision. At the end of the case each of the 3 excision sites were dry and intact a Gelfoam roll was placed into the anal canal. At this time the anal block was re injected in the intersphincteric plane using Exparel. Gauze was placed over top and ABD and panties were placed. Patient tolerated this procedure very well and went in good condition to the postoperative care unit. Post-operative Condition: stable Disposition: Acute Care
[2022-10-28] MEDS: DOCUSATE 100 MG CAPSULE PO ×2 (13:57→20:50)
[2022-10-28] MEDS: PSYLLIUM HUSK 1 PACKET PO ×2 (13:57→20:50)
--- NOTE | 2022-10-28 14:44 | PM.PN.1 ---
Subjective Subjective Date Patient Seen: 10/28/22 Interval history: 87 yo F on apixaban for afib admitted with melena and hematochezia. POD # 1 hemorhoidectomy. Pt doing well post-op and ready for discharge but [facility] unable to accept her back today. Exam Vital Signs (past 8 hours): - 10/28/22 08:00 10/28/22 08:35 10/28/22 07:30 Temperature 97.3 F L 97.6 F Pulse Rate 83 120 H Respiratory Rate 17 16 Blood Pressure 94/44 L 98/81 Pulse Oximetry 96 96 Oxygen Delivery Method Room Air Room Air Oxygen Flow Rate 0 10/28/22 07:30 10/28/22 12:42 10/28/22 12:42 Temperature 97.8 F Pulse Rate 80 75 Respiratory Rate 12 12 Blood Pressure 114/70 114/70 Pulse Oximetry 97 93 96 Oxygen Delivery Method Room Air Room Air Room Air Oxygen Flow Rate 10/28/22 12:47 10/28/22 13:20 10/28/22 13:50 Temperature 97.1 F L 97.9 F Pulse Rate 86 68 88 Respiratory Rate 12 17 18 Blood Pressure 104/58 L 118/61 124/51 L Pulse Oximetry 97 97 95 Oxygen Delivery Method Room Air Oxygen Flow Rate 0 0 Oxygen Delivery Method Room Air Oxygen Flow Rate 0 Narrative Exam Narrative: Gen: alert, NAD Lungs: few left base crackles Ext: no edema Neuro: nl affect and speech Objective Labs 10/28/22 04:50 10/28/22 04:50 Labs: Laboratory Results - last 24 hr 10/28/22 10/28/22 04:50 04:50 WBC 9.5 RBC 2.80 L Hgb 9.6 L Hct 28.1 L MCV 100.3 H MCH 34.3 H MCHC 34.2 RDW 14.2 Plt Count 146 L Neut % (Auto) 70.1 Lymph % (Auto) 14.6 L [place] % (Auto) 10.8 Eos % (Auto) 3.7 Baso % (Auto) 0.8 Neut # (Auto) 6700 Lymph # (Auto) 1400 [place] # (Auto) 1000 H Eos # (Auto) 300 Baso # (Auto) 100 Sodium 137 Potassium 3.9 Chloride 109 H Carbon Dioxide 30 BUN 13 Creatinine 0.94 Estimated GFR 59 L BUN/Creatinine Ratio 13.8 Glucose 100 Calcium 7.9 L Magnesium 1.9 Total Bilirubin 0.2 AST 27 ALT 44 H Alkaline Phosphatase 58 Total Protein 4.7 L Albumin 2.4 L Globulin 2.3 Albumin/Globulin Ratio 1.0 PFSH Medical History Atrial fibrillation Chicken pox Chronic back pain Chronic kidney disease Chronic pain Claudication of lower extremity DDD (degenerative disc disease), lumbar Edema Former smoker Genital herpes Gout Hearing loss Heart palpitations Hemorrhoid History of urinary incontinence HTN (hypertension) Hypothyroidism Kidney disease (~2015) Left knee pain Neuropathy Osteoarthritis Osteoporosis Pneumonia (05/22/16) Right knee pain Scoliosis Screening for malignant neoplasm of colon Shoulder pain Skin cancer Warfarin anticoagulation Surgical History Anesthesia History of carpal tunnel release (~2008) History of hysterectomy (~01/1990) History of left hip replacement (~2016) Hx of bladder repair surgery (~1992) Hx of cholecystectomy (~1979) Hx of shoulder surgery (~2006) Status post bilateral cataract extraction (~2004) Family History Father Cancer Mother Suicide Brother Hypertension Sister Pneumonia Grandfather Diabetes mellitus Family/Other Cancer Social History household members: none Smoking Status: Former smoker alcohol intake: current Assessment & Plan Assessment & Plan narrative: (1) Acute GI bleeding, on anticoagulation, with acute blood loss anemia ?- did not need transfusion - EGD/colonoscopy - bleeding external and internal hemorrhoids - s/p hemorrhoidecomy 10/28 ? ? (2) Atrial fibrillation, paroxysmal ?- continue home medications as noted below ?- no diagnosis of CHF but takes Lasix 40 mg qd for LE edema (currently holding) - ECHO 07/16 EF 50-55% - resume Eliquis on Sunday 10/29 (3) HTN (hypertension): - Continue?metoprolol and Cardizem. (4) CKD (chronic kidney disease) stage 3, GFR 30-59 ml/min: - stable. Avoid nephrotoxins.? (5) Chronic pain: - restart home medications - Tylenol when necessary (6) hypothyroid - cont levothyroxine D/c [place] [facility] tomorrow if medically stable. Quality VTE Deep Vein Thrombosis/Pulmonary Embolism Present on Admission: No
[2022-10-28] MEDS: valACYclovir 500 MG TABLET PO (19:15)
[2022-10-28] MEDS: GABAPENTIN 300 MG CAPSULE 600 MG PO (20:50)
[2022-10-29] VITALS (7 sets, daily range): BP systolic 98–125; BP diastolic 50–74; PULSE 81–117; RESP 17–20; TEMP 36.1–36.6; O2SAT 92–96
[2022-10-29] MEDS: ACETAMINOPHEN 325 MG TABLET 650 MG PO (00:43)
[2022-10-29] MEDS: LEVOTHYROXINE 25 MCG TABLET PO (06:01)
--- NOTE | 2022-10-29 07:41 | P.DS_ITS ---
History of Present Illness History of Present Illness Date Patient Seen: 10/29/22 Chief complaint: Gastrointestinal bleeding Narrative: 87 years old female with 3 of hypertension, hyperlipidemia,? CAD, atrial fibrillation on Eliquis, chronic back pain, hypothyroidism, constipation, presen con to the ED with lower GI bleed in the last 3 days.? The patient had bowel movements with bright red blood mixed with the stools.? She also was complaining of lightheadedness on standing position but denies any chest pain, shortness of breath, nausea, vomiting, abdominal pain, diaphoresis or dysuria.? The patient was seen in the ER with a single 4 allergic reaction to amoxicillin after she was prescribed for your infection.? The patient was started on prednisone and discharged home. Her last colonoscopy was more than 10 years ago.? Denies using any use of NSAIDs on a regular basis. Discharge Providers Provider Date of admission: 10/26/22 10:00 Discharge Date: 10/29/22 Primary care physician: AL Mckinney Consults: 10/26/22 12:14 Consult to General Surgery Routine Comment: Consulting Provider: Mak Erazo Reason for consultation: melena/hematochezia Discharge provider: Francoise Venegas MD Summary Hospital Course Hospital Course: (1) Acute GI bleeding, on anticoagulation, with acute blood loss anemia ?- did not need transfusion ?- EGD/colonoscopy - bleeding external and internal hemorrhoids ?- s/p hemorrhoidectomy 10/28 -hemoglobin stabilized at 9.6 on 10/28, down from 11.0. -advised nutritional iron containing food encouraged ? ? (2) Atrial fibrillation, paroxysmal ?- continue home medications as noted below ?- no diagnosis of CHF but takes Lasix 40 mg qd for LE edema ?- ECHO 07/16 EF 50-55% ?- resumed Eliquis on Sunday 10/29 (3) HTN (hypertension): - Continue?metoprolol and Cardizem. (4) CKD (chronic kidney disease) stage 3, GFR 30-59 ml/min: - stable. Avoid nephrotoxins.? (5) Chronic pain: - restart home medications - Tylenol when necessary (6) hypothyroid - cont levothyroxine D/c [facility] . Status at Discharge Cognitive/behavioral status at discharge: at baseline, oriented Functional status at discharge: independent ambulation Overall status at discharge: patient is back to baseline Exam Vital Signs (past 8 hours): - 10/29/22 02:00 10/29/22 04:57 10/29/22 05:03 Temperature 96.9 F L Pulse Rate 117 H 88 Respiratory Rate 20 Blood Pressure 98/72 104/74 Pulse Oximetry 92 93 Oxygen Delivery Method Room Air 10/29/22 06:00 Temperature Pulse Rate Respiratory Rate Blood Pressure Pulse Oximetry 93 Oxygen Delivery Method Room Air Oxygen Delivery Method Room Air Oxygen Flow Rate 0 Narrative Exam Narrative: Alert and oriented x3. No apparent distress Heart is regular rate and rhythm without murmur Lungs are clear to auscultation bilaterally and abdomen is soft, bowel sounds positive, nontender, no organomegaly. Extremities have no ankle edema Objective Labs 10/28/22 04:50 10/28/22 04:50 [facility] Medical History Atrial fibrillation Chicken pox Chronic back pain Chronic kidney disease Chronic pain Claudication of lower extremity DDD (degenerative disc disease), lumbar Edema Former smoker Genital herpes Gout Hearing loss Heart palpitations Hemorrhoid History of urinary incontinence HTN (hypertension) Hypothyroidism Kidney disease (~2015) Left knee pain Neuropathy Osteoarthritis Osteoporosis Pneumonia (05/22/16) Right knee pain Scoliosis Screening for malignant neoplasm of colon Shoulder pain Skin cancer Warfarin anticoagulation Surgical History Anesthesia History of carpal tunnel release (~2008) History of hysterectomy (~01/1990) History of left hip replacement (~2016) Hx of bladder repair surgery (~1992) Hx of cholecystectomy (~1979) Hx of shoulder surgery (~2006) Status post bilateral cataract extraction (~2004) Family History Father Cancer Mother Suicide Brother Hypertension Sister Pneumonia Grandfather Diabetes mellitus Family/Other Cancer Social History household members: none Smoking Status: Former smoker alcohol intake: current Discharge Assessment & Plan Assessment and Plan Plan of Treatment: See above plans Discharge Plan Discharge Plan Patient Disposition: Home Provider Discharge Comment: please take a fiber supplement: Any [id number] brand or flavor is fine. I recommend the powder form and advise to avoid the pills or gummies. Take a large tbsp with a large glass of water twice daily before meals. Continue this daily to prevent constipation and decreased the pressure in your colon while you were healing from your hemorrhoidectomy. Take daily fiber for a minimum of 2 weeks. Many patients observe such a benefit that they choose to continue fiber supplementation daily. Discharge orders & Medications Prescriptions: New Fiber (psyllium husk-sugar) 3.4 gram/7 gram powder 1 tbsp PO BID Qty: 822 0RF Continued cholecalciferol (vitamin D3) 25 mcg (1,000 unit) capsule 25 mcg PO DAILY Qty: 90 3RF levothyroxine 25 mcg tablet See Rx Instructions .ROUTE .COMPLEX Qty: 100 11RF Dose Instruction: 2 TABS (50MCG) BY MOUTH EVERY SUNDAY;1 TAB BY MOUTH 6 TIMES WEEKLY ( SUN, SUN, SUN, SUN, SUN, SAT) Rx Instructions: 2 TABS (50MCG) BY MOUTH EVERY SUNDAY;1 TAB BY MOUTH 6 TIMES WEEKLY ( SUN, SUN, SUN, SUN, SUN, SAT) colchicine 0.6 mg tablet 0.6 mg PO BID PRN (Reason: gout flare) Qty: 20 3RF Rx Instructions: Take one tablet twice daily for 2 days as needed for gout flare diltiazem HCl 180 mg capsule,extended release 24 hr 180 mg PO QAM Qty: 90 3RF docusate sodium 100 mg capsule See Rx Instructions .ROUTE .COMPLEX Qty: 60 11RF Dose Instruction: 1 CAP BY MOUTH EVERY EVENING;1 CAP BY MOUTH EVERY DAY NEEDED FOR CONSTIPATION *HOLD X 24HRS FOR DIARRHEA* Rx Instructions: 1 CAP BY MOUTH EVERY EVENING;1 CAP BY MOUTH EVERY DAY NEEDED FOR CONSTIPATION *HOLD X 24HRS FOR DIARRHEA* furosemide 40 mg tablet 40 mg PO DAILY gabapentin [Neurontin] 300 mg capsule 600 mg PO HS Qty: 180 3RF gabapentin 100 mg capsule See Rx Instructions .ROUTE .COMPLEX Qty: 60 11RF Dose Instruction: 1 CAP BY MOUTH 2 TIMES DAILY Rx Instructions: 1 CAP BY MOUTH 2 TIMES DAILY (0800, 1200) [id number] C-Mn [Glucosamine Chondroitin MaxStr] 500-400 mg capsule 1 cap PO TID Qty: 90 11RF magnesium hydroxide [Milk of Magnesia] 400 mg/5 mL suspension 30 ml PO DAILY PRN (Reason: constipation) Qty: 473 3RF Rx Instructions: Give 30mls PO with a full glass of water daily PRN for constipation or straining with passing stool. If no bowel movement within 6-8 hours, notify physician. metoprolol succinate 50 mg tablet extended release 24 hr 100 mg PO DAILY Qty: 180 3RF Rx Instructions: Take 2 tabs daily for atrial fibrillation multivitamin Tablet 1 tab PO DAILY Qty: 90 3RF nitroglycerin 0.4 mg tablet, sublingual See Rx Instructions .ROUTE .COMPLEX Qty: 25 2RF Dose Instruction: 1 TABLET SUBLINGUALLY EVERY 5 MINS NEEDED FOR CHEST PAIN UP TO 3 DOSES; CALL 911 IF NO RELIEF Rx Instructions: 1 TABLET SUBLINGUALLY EVERY 5 MINS NEEDED FOR CHEST PAIN UP TO 3 DOSES; CALL 911 IF NO RELIEF tramadol 50 mg tablet 50 mg PO BID Qty: 60 5RF valacyclovir 1 gram tablet See Rx Instructions .ROUTE .COMPLEX Qty: 15 11RF Dose Instruction: 0.5 TAB (500MG) BY MOUTH EVERY DAY (DX: GENITAL INFECTION) Rx Instructions: 0.5 TAB (500MG) BY MOUTH EVERY DAY (DX: GENITAL INFECTION) calcium carbonate 500 mg calcium (1,250 mg) tablet,chewable 500 mg PO DAILY PRN (Reason: Acid Reflux) acetaminophen 500 mg capsule 500 mg PO TID PRN (Reason: Fever Or Pain) phenazopyridine 100 mg Tablet 100 mg PO TID PRN (Reason: Bladder Spasms) Eliquis 5 mg tablet 5 mg PO BID Qty: 1 0RF Rx Instructions: RESUME ON 10/29/22 epinephrine [EpiPen 2-Chau] 0.3 mg/0.3 mL auto-injector 0.3 mg IM Q5-15M PRN (Reason: anaphylaxis) Qty: 2 0RF Rx Instructions: do not exceed 3 doses per episode epinephrine [EpiPen 2-Chau] 0.3 mg/0.3 mL auto-injector 0.3 mg IM Q5-15M PRN (Reason: anaphylaxis) Qty: 2 0RF Rx Instructions: do not exceed 3 doses per episode Pharmacist Comment: Please place additional hold time for Eliquis until p.m. dose on 10/31/2022. May restart Eliquis on 10/31 in p.m. Follow up/Referrals: Brown,Vielka, COMMUNITY MARKETING MANAGER [Primary Care Provider] - Margarita Pichardo MD [Physician] - (Please call the office Sunday to schedule a post operative check up in 7-10 days. ) Diet/Activity/Treatments Diet: Diet as Tolerated and Regular Skin/Wound/Dressing Care Other wound treatment: I recommend Sitz baths 3 times daily and use a squirt bottle and gentle towel to wash her bottom after a bowel movement. Visit Report/Discharge Packet Instructions: DI for Hemorrhoidectomy, DI for Colon Polypectomy, DI for Gastritis Stand Alone Forms: Patient Portal/API, Stroke Signs & Symptoms Discharge Data Primary Care Provider: Vielka Iyer Discharges patient from system. Discharge Date/Time: 10/29/22 13:35 Quality VTE Deep Vein Thrombosis/Pulmonary Embolism Present on Admission: No
[2022-10-29] MEDS: DOCUSATE 100 MG CAPSULE PO (08:38)
[2022-10-29] MEDS: PSYLLIUM HUSK 1 PACKET PO (08:38)
[2022-10-29] MEDS: GABAPENTIN 100 MG CAPSULE PO (08:38)
[2022-10-29] MEDS: METOPROLOL ER 50 MG TABLET 100 MG PO (08:38)
[2022-10-29] MEDS: dilTIAZem CD 180 MG CAP PO (08:38)
[2022-10-29] MEDS: SODIUM CHLORIDE 0.9% FLUSH 10 ML IV (08:39)
[2022-10-29] MEDS: TRAMADOL 50 MG TABLET PO (08:41)
--- NOTE | 2022-10-29 12:44 | PM.PNPO.1 ---
Subjective Subjective Date Patient Seen: 10/29/22 Interval history: Doing well this morning no questions or concerns denies pain around her rectum at all. She did have a bowel movement she reports and everything seemed fine, there was some blood on the stool but she was not concerned by the amount. She is looking forward to going back to her assisted living today Exam Vital Signs (past 8 hours): - 10/29/22 04:57 10/29/22 05:03 10/29/22 06:00 Temperature 96.9 F L Pulse Rate 117 H 88 Respiratory Rate 20 Blood Pressure 98/72 104/74 Pulse Oximetry 93 93 Oxygen Delivery Method Room Air Oxygen Flow Rate 10/29/22 08:38 10/29/22 09:00 10/29/22 11:50 Temperature 97.8 F Pulse Rate 88 84 81 Respiratory Rate 17 Blood Pressure 125/50 L Pulse Oximetry 96 Oxygen Delivery Method Oxygen Flow Rate 0 Oxygen Delivery Method Room Air Oxygen Flow Rate 0 Narrative Exam Narrative: Patient is sleeping in bed at the time of my examination but is easily arousable and alert on oriented. She is pleasant and appropriate in no acute distress Her anus was examined and the sutures from the hemorrhoidectomy are clean dry and intact. The anal area looks well. There is more than the average amount ecchymoses around the perineal area it is still within normal limits and not expanding not concerning and given the size of her hemorrhoids really not unexpected. Objective Labs 10/28/22 04:50 10/28/22 04:50 [facility] Medical History Atrial fibrillation Chicken pox Chronic back pain Chronic kidney disease Chronic pain Claudication of lower extremity DDD (degenerative disc disease), lumbar Edema Former smoker Genital herpes Gout Hearing loss Heart palpitations Hemorrhoid History of urinary incontinence HTN (hypertension) Hypothyroidism Kidney disease (~2015) Left knee pain Neuropathy Osteoarthritis Osteoporosis Pneumonia (05/22/16) Right knee pain Scoliosis Screening for malignant neoplasm of colon Shoulder pain Skin cancer Warfarin anticoagulation Surgical History Anesthesia History of carpal tunnel release (~2008) History of hysterectomy (~01/1990) History of left hip replacement (~2016) Hx of bladder repair surgery (~1992) Hx of cholecystectomy (~1979) Hx of shoulder surgery (~2006) Status post bilateral cataract extraction (~2004) Family History Father Cancer Mother Suicide Brother Hypertension Sister Pneumonia Grandfather Diabetes mellitus Family/Other Cancer Social History household members: none Smoking Status: Former smoker alcohol intake: current Assessment & Plan Post-op Postoperative Procedures: Procedures Operation Date: 10/27/22 14:45 Actual Procedure Side Surgeon p Esophagogastroduodenoscopy Margarita Pichardo MD s Colonoscopy Margarita Pichardo MD Operation Date: 10/28/22 09:00 Actual Procedure Side Surgeon p Hemorrhoidectomy Margarita Pichardo MD Postoperative day: 1 Postoperative status narrative: She is doing well and can be discharged to her assisted living today. I would err on the side of caution and just hold her Eliquis for another couple of days. Her discharge paperwork has been updated to reflect my recommendations here. She will have a follow-up postoperative visit and can call my office with any questions or concerns. I additionally recommend very strongly powdered fiber supplementation taken twice daily to keep the bowels soft and the pressure within the colon low. She states that she will be seeing her primary care physician on Sunday of this upcoming week which is great since Vielka Iyer will likely check the area and make sure everything looks fine before the Eliquis was restarted. Otherwise I just recommend Sitz baths b.i.d. and gentle cleansing after bowel movements. Please do not hesitate to contact me with any questions or concerns. Quality VTE Deep Vein Thrombosis/Pulmonary Embolism Present on Admission: No
--- NOTE | 2022-10-29 12:46 | CM.DPC ---
DCP Continued: INFORMATION SERVICES ASSISTANT reviewed EMR. Per provider in rounds, patient cleared to d/c back to [facility] today. INFORMATION SERVICES ASSISTANT called [facility]. Spoke with RN Issac. He reports they can take her whenever this afternoon. They will need med list and d/c summary upon d/c. INFORMATION SERVICES ASSISTANT updated patient on d/c timeline. Patient agreeable. INFORMATION SERVICES ASSISTANT called daughter Kati to update on d/c timeline. LVM. Daughter to transport patient to [facility]. INFORMATION SERVICES ASSISTANT faxed signed med list and d/c summary to [facility] (#[phone]) Plan: patient will d/c today to [facility] transport with daughter in POV. CM Team will continue to follow closely. ARMANDO Braun
--- NOTE | 2022-10-29 13:42 | PC.NURSE ---
Discharge Note Patient A&O, VSS, RA, no complaints of pain, slight discomfort to rectal are due to surgical procedure. No additional pain medication requested. Patient agreeable to discharge plan. Discharge packet reviewed with patient, all questions/concerns addressed. Per provider's order patient reminded to initiate Eliquis on Sunday, October 31. Also reminded patient to call clinic tomorrow and schedule follow-up appointment. PIV discontinued. Patient assisted to dress and pack all belongings. Patient taken down via wheelchair to POV accompanied by daughter.
--- NOTE | 2022-11-01 09:28 | ED_ITS ---
HPI - GI Bleed General Chief complaint: GI Bleed Stated complaint: bleeding hemroides Time Seen by Provider: 10/25/22 15:46 Source: patient and family Mode of arrival: Wheelchair History of Present Illness HPI Narrative: Addendum November 23, 2022 7:15 a.m. Please note. This record has been reviewed and being updated due to my original chart was accessed by hospitalist and was edited erroneously by hospitalist. Patient here with daughter with complaints rectal bleeding for the past 3 days. Now starting to feel short of breath weak and dizzy. She is changing a pad every hour. Patient has a history of atrial fibrillation and is on Eliquis. Last Eliquis taken was Sunday night. This is now Sunday afternoon. Patient never had bleeding from Eliquis before. Vital signs reviewed. Patient is not toxic. Denies abdominal pain. Patient's daughter and female nurse, Devika, at bedside to assistant county engineer from rectal exam. Related Data Home Medications Medication Instructions Recorded Confirmed furosemide 40 mg tablet 40 mg PO DAILY 07/24/22 11/21/22 acetaminophen 500 mg PO TID PRN Fever Or Pain 10/26/22 11/21/22 calcium carbonate 500 mg calcium 500 mg PO DAILY PRN Acid Reflux 10/26/22 11/21/22 (1,250 mg) chewable tablet Previous Rx's Medication Instructions Recorded cholecalciferol (vitamin D3) 25 25 mcg PO DAILY #90 caps 06/30/21 mcg (1,000 unit) capsule levothyroxine 25 mcg tablet See Rx Instructions .Route 05/29/22 .COMPLEX #100 ea colchicine (gout) 0.6 mg tablet 0.6 mg PO BID PRN gout flare #20 07/24/22 tabs diltiazem HCl 180 mg capsule,24 180 mg PO QAM #90 caps 07/24/22 hr,extended release docusate sodium 100 mg capsule See Rx Instructions .Route 07/24/22 .COMPLEX #60 ea gabapentin 100 mg capsule See Rx Instructions .Route 07/24/22 .COMPLEX #60 ea gabapentin 300 mg capsule 600 mg PO HS #180 caps 07/24/22 (Neurontin) [id number]-dmc C-Mn 500 1 cap PO TID #90 caps 07/24/22 mg-400 mg capsule (Glucosamine Chondroitin Maximum Strength) nitroglycerin 0.4 mg sublingual See Rx Instructions .Route 07/24/22 tablet .COMPLEX #25 ea tramadol 50 mg tablet 50 mg PO BID #60 ea 08/11/22 valacyclovir 1 gram tablet See Rx Instructions .Route 10/09/22 .COMPLEX #15 ea epinephrine 0.3 mg/0.3 mL 0.3 mg (0.3 mL) IM Q5-15M PRN 10/21/22 injection, auto-injector (EpiPen anaphylaxis #2 ea 2-Chau) epinephrine 0.3 mg/0.3 mL 0.3 mg (0.3 mL) IM Q5-15M PRN 10/21/22 injection, auto-injector (EpiPen anaphylaxis #2 ea 2-Chau) apixaban 5 mg tablet (Eliquis) 5 mg PO BID #1 tab 10/28/22 psyllium husk (with sugar) 3.4 1 tbsp PO BID #822 grams 10/28/22 gram/7 gram oral powder (Fiber (psyllium husk-sugar)) metoprolol succinate 50 mg 100 mg PO DAILY #180 tabs 11/06/22 tablet,extended release 24 hr Allergies Allergy/AdvReac Type Severity Reaction Status Date / Time amoxicillin Allergy Severe Swelling Verified 11/21/22 14:35 of Lip/Tongue/Throat celecoxib [From Celebrex] AdvReac Severe Kidney Verified 11/21/22 14:35 failure codeine [CODEINE] AdvReac Mild Nausea, Verified 11/21/22 14:35 vomiting Review of Systems Review of Systems Narrative: GENERAL: negative chills, positive fatigue, malaise, negative fever, sweats. HEENT: negative sinus pain, ear pain, sore throat RESPIRATORY: negative dyspnea, cough CARDIOVASCULAR: negative chest pain, palpitations GASTROINTESTINAL: negative nausea, vomiting, abdominal pain, positive GI bleed : negative dysuria, frequency, hematuria MUSCULOSKELETAL: negative muscle or bony pain SKIN: negative rash, skin lesions NEUROLOGIC: negative weakness, numbness, positive dizzy ROS Unobtainable: All systems reviewed & are unremarkable except as noted in HPI and below Musculoskeletal Musculoskeletal: Denies abnormal gait and Denies numbness Neurologic Neurologic: Denies abnormal gait, Denies confusion and Denies numbness Psychiatric Psychiatric: Denies confusion Patient History Medical History Acute blood loss anemia Atrial fibrillation Chicken pox Chronic anticoagulation Chronic back pain Chronic kidney disease Chronic pain Claudication of lower extremity DDD (degenerative disc disease), lumbar Edema Former smoker Genital herpes Gout Hearing loss Heart palpitations Hemorrhoid History of urinary incontinence HTN (hypertension) Hypothyroidism Kidney disease (~2015) Left knee pain Neuropathy Osteoarthritis Osteoporosis Pneumonia (05/22/16) Right knee pain Rupture of right tympanic membrane Scoliosis Screening for malignant neoplasm of colon Shoulder pain Skin cancer Warfarin anticoagulation Surgical History Anesthesia History of carpal tunnel release (~2008) History of hysterectomy (~01/1990) History of left hip replacement (~2016) Hx of bladder repair surgery (~1992) Hx of cholecystectomy (~1979) Hx of shoulder surgery (~2006) Status post bilateral cataract extraction (~2004) Family History Father Cancer Mother Suicide Brother Hypertension Sister Pneumonia Grandfather Diabetes mellitus Family/Other Cancer Social History household members: none Smoking Status: Former smoker alcohol intake: current Smoking Status: Former smoker alcohol intake frequency: holidays/special occasions only Substance Use Type: does not use Exam Narrative Exam Narrative: GENERAL: in no distress, not toxic not dyspneic HEAD: Normocephalic. EYES: Pupils equal round, pink conjunctiva ENT: Mucous membranes moist. NECK: Trachea midline. CARDIOVASCULAR: Strong heart sounds RESPIRATORY: Clear to auscultation. Breath sounds equal bilaterally. No wheezes, rales, or rhonchi. GASTROINTESTINAL: Abdomen soft, non-tender, rectal exam dark stool on glove. No hematochezia EXTREMITIES: No gross deformities. NEURO: AOx4. SKIN: Warm and dry PSYCH: Not anxious, is cooperative Initial Vital Signs Initial Vital Signs: Vital Signs Temperature 97.6 F 10/25/22 15:02 Pulse Rate 105 H 10/25/22 15:02 Respiratory Rate 16 10/25/22 15:02 Blood Pressure 112/79 10/25/22 15:02 Pulse Oximetry 97 10/25/22 15:02 Oxygen Delivery Method Room Air 10/25/22 15:02 Course Orders Ordered: Discontinued Medications Acetaminophen (Acetaminophen 325 Mg Tablet) 650 mg PO Q6H PRN PRN Reason: Fever/Mild Pain (1-3) Last Admin: 10/29/22 00:43 Dose: 650 mg Documented By: Admin: 10/27/22 09:42 Dose: 650 mg Documented By: Admin: 10/26/22 18:07 Dose: 650 mg Documented By: RENEE Hydrocodone Bitart/Acetaminophen (Hydrocodone/Acet 5/325 Tablet) 1 tab PO PACUNOW PRN PRN Reason: Mild or moderate pain Bupivacaine HCl (Bupivacaine 0.25% Mdv) 50 ml INJ NOW ONE Stop: 10/28/22 12:57 Last Admin: 10/28/22 12:57 Dose: 20 ml Documented By: ARIK Bupivacaine Liposome (Bupivacaine Liposome 266 Mg/20 Ml Vial) 266 mg INJ INTRA- OP ONE Stop: 10/28/22 12:56 Last Admin: 10/28/22 12:30 Dose: 266 mg Documented By: ARIK Diltiazem HCl (Diltiazem Cd 180 Mg Cap) 180 mg PO DAILY [facility] Last Admin: 10/29/22 08:38 Dose: 180 mg Documented By: Admin: 10/28/22 07:52 Dose: 180 mg Documented By: Admin: 10/27/22 10:47 Dose: 180 mg Documented By: Admin: 10/26/22 08:42 Dose: 180 mg Documented By: RENEE Docusate Sodium (Docusate 100 Mg Capsule) 100 mg PO BID [facility] Last Admin: 10/29/22 08:38 Dose: 100 mg Documented By: Admin: 10/28/22 20:50 Dose: 100 mg Documented By: Admin: 10/28/22 13:57 Dose: 100 mg Documented By: GALINA Fentanyl (Fentanyl 100 Mcg/2 Ml Inj) 0 mcg IV Q5M PRN PRN Reason: Pain, Moderate (4-6) Gabapentin (Gabapentin 300 Mg Capsule) 600 mg PO BEDTIME [facility] Last Admin: 10/28/22 20:50 Dose: 600 mg Documented By: Admin: 10/27/22 20:34 Dose: 600 mg Documented By: Admin: 10/26/22 20:56 Dose: 600 mg Documented By: Admin: 10/26/22 02:27 Dose: 600 mg Documented By: HAO Gabapentin (Gabapentin 100 Mg Capsule) 100 mg PO DAILY [facility] Last Admin: 10/29/22 08:38 Dose: 100 mg Documented By: Admin: 10/28/22 07:52 Dose: 100 mg Documented By: Admin: 10/27/22 09:39 Dose: 100 mg Documented By: Admin: 10/26/22 08:42 Dose: 100 mg Documented By: RENEE Gabapentin (Gabapentin 100 Mg Capsule) 100 mg PO DAILY@1200 [facility]AY[facility] Last Admin: 10/29/22 13:40 Dose: Not Given Documented By: ELISSA Gabapentin (Gabapentin 100 Mg Capsule) 100 mg PO NOW ONE Stop: 10/28/22 13:47 Last Admin: 10/28/22 13:57 Dose: 100 mg Documented By: GALINA Hydromorphone HCl (Hydromorphone 2 Mg Inj) 0 mg IV Q5M PRN PRN Reason: Pain, Moderate (4-6) Hydroxyzine Pamoate (Hydroxyzine Pamoate 25 Mg Capsule) 25 mg PO NOW PRN PRN Reason: Pain, Mild (1-3) Dextrose/Sodium Chloride (Dextrose 5%-0.45% Ns) 1,000 mls @ 84 mls/hr IV CONT [facility] Last Admin: 10/28/22 06:48 Dose: 84 mls/hr Documented By: Infusion: 10/28/22 06:48 Dose: 84 mls/hr Documented By: Admin: 10/27/22 20:08 Dose: 84 mls/hr Documented By: Infusion: 10/27/22 17:33 Dose: 84 mls/hr Documented By: Admin: 10/27/22 05:38 Dose: 84 mls/hr Documented By: Infusion: 10/27/22 05:38 Dose: 84 mls/hr Documented By: Admin: 10/26/22 18:07 Dose: 84 mls/hr Documented By: Infusion: 10/26/22 18:07 Dose: 84 mls/hr Documented By: Admin: 10/26/22 06:54 Dose: 84 mls/hr Documented By: HAO Lactated Ringer's (Lactated Ringers) 1,000 mls @ 42 mls/hr IV NOW ONE Stop: 10/28/22 14:52 Last Admin: 10/27/22 15:05 Dose: 42 mls/hr Documented By: FLAVIO Levothyroxine Sodium (Levothyroxine 25 Mcg Tablet) 25 mcg PO QACBREAK [facility] Last Admin: 10/29/22 06:01 Dose: 25 mcg Documented By: Admin: 10/28/22 06:16 Dose: 25 mcg Documented By: Admin: 10/27/22 06:21 Dose: 25 mcg Documented By: Admin: 10/26/22 06:07 Dose: 25 mcg Documented By: HAO Metoprolol Succinate (Metoprolol Er 50 Mg Tablet) 100 mg PO DAILY [facility] Last Admin: 10/29/22 08:38 Dose: 100 mg Documented By: Admin: 10/28/22 07:52 Dose: 100 mg Documented By: Admin: 10/27/22 09:40 Dose: 100 mg Documented By: Admin: 10/26/22 08:41 Dose: 100 mg Documented By: RENEE Naloxone HCl (Naloxone 0.4 Mg/Ml Vial) 0.2 mg IV Q2MIN PRN PRN Reason: Opiate Reversal Ondansetron HCl (Ondansetron 4 Mg/2 Ml Inj) 4 mg IV NOW PRN PRN Reason: Nausea And Vomiting Oxycodone HCl (Oxycodone Ir 5 Mg Tablet) 5 mg PO PACUNOW PRN PRN Reason: Mild or moderate pain Oxycodone/Acetaminophen (Oxycodone/Acetaminophen 5/325 Tablet) 1 tab PO PACUNOW PRN PRN Reason: Mild or Moderate Pain Pantoprazole Sodium (Pantoprazole 40 Mg Vial) 40 mg IV NOW ONE Stop: 10/25/22 18:17 Last Admin: 10/25/22 19:42 Dose: 40 mg Documented By: RENEE(2) Pantoprazole Sodium (Pantoprazole 40 Mg Vial) 40 mg IV BID [facility] Pantoprazole Sodium (Pantoprazole 40 Mg Vial) 40 mg IV BID [facility] Last Admin: 10/28/22 07:51 Dose: 40 mg Documented By: Admin: 10/27/22 20:34 Dose: 40 mg Documented By: Admin: 10/27/22 09:40 Dose: 40 mg Documented By: Admin: 10/26/22 20:56 Dose: 40 mg Documented By: Admin: 10/26/22 08:41 Dose: 40 mg Documented By: RENEE Polyethylene Glycol/Electrolytes (Lie4737/Sod Sulf,Bicarb,Cl/Kcl 4,000 Ml Solution) 4,000 ml PO NOW ONE Stop: 10/26/22 12:23 Last Admin: 10/26/22 17:30 Dose: 2,500 ml Documented By: RENEE Potassium Chloride (Potassium Chloride 20 Meq Tab) 40 meq PO NOW ONE Stop: 10/27/22 18:01 Last Admin: 10/27/22 18:55 Dose: 40 meq Documented By: GALINA Psyllium Hydrophilic Mucilloid (Psyllium Husk 1 Packet) 1 packet PO BID [facility] Last Admin: 10/29/22 08:38 Dose: 1 packet Documented By: Admin: 10/28/22 20:50 Dose: 1 packet Documented By: Admin: 10/28/22 13:57 Dose: 1 packet Documented By: Admin: 10/28/22 09:05 Dose: Not Given Documented By: Admin: 10/27/22 20:34 Dose: 1 packet Documented By: SATINDER Sodium Chloride (Sodium Chloride 0.9% Flush) 10 ml IV PRN PRN PRN Reason: Flush Last Admin: 10/26/22 06:54 Dose: 10 ml Documented By: HAO Sodium Chloride (Sodium Chloride 0.9% Flush) 10 ml IV BID [facility] Last Admin: 10/29/22 08:39 Dose: 10 ml Documented By: Admin: 10/28/22 21:00 Dose: 10 ml Documented By: Admin: 10/28/22 07:51 Dose: 10 ml Documented By: Admin: 10/27/22 20:35 Dose: 10 ml Documented By: Admin: 10/27/22 09:40 Dose: 10 ml Documented By: Admin: 10/26/22 20:56 Dose: 10 ml Documented By: Admin: 10/26/22 08:42 Dose: 10 ml Documented By: RENEE Tramadol HCl (Tramadol 50 Mg Tablet) 50 mg PO BID PRN PRN Reason: Pain, Mild (1-3) Last Admin: 10/28/22 08:00 Dose: 50 mg Documented By: Admin: 10/28/22 01:03 Dose: 50 mg Documented By: Admin: 10/27/22 10:47 Dose: 50 mg Documented By: GALINA Tramadol HCl (Tramadol 50 Mg Tablet) 50 mg PO BID [facility] Last Admin: 10/29/22 08:41 Dose: 50 mg Documented By: Admin: 10/28/22 20:50 Dose: 50 mg Documented By: SH Valacyclovir HCl (Valacyclovir 500 Mg Tablet) 500 mg PO BEDTIME [facility] Valacyclovir HCl (Valacyclovir 500 Mg Tablet) 500 mg PO DAILY@1700 SORAYA Last Admin: 10/28/22 19:15 Dose: 500 mg Documented By: GALINA MDM - GI Bleed Lab Data 10/28/22 04:50 10/28/22 04:50 Labs: Lab Results 10/25/22 10/25/22 10/25/22 Range/Units 16:05 16:05 16:05 WBC 15.1 H (4.5-11.0) X10^3/uL RBC 3.89 L (4.0-5.2) X10^6/uL Hgb 13.1 (12.0-16.0) g/dL Hct 38.5 (36-46) % MCV 99.2 (80-100) fL MCH 33.6 (26-34) PG MCHC 33.9 (30-36) % RDW 14.3 (11.6-14.8) % Plt Count 211 (150-400) X10^3/uL Neut % (Auto) 66.8 (50-75) % Lymph % (Auto) 20.1 L (25-40) % Charles % (Auto) 12.1 (3-14) % Eos % (Auto) 0.4 L (2-4) % Baso % (Auto) 0.6 (0-2) % Neut # (Auto) 38381 H (2135-2027) /uL Lymph # (Auto) 3000 (9285-5718) /uL Charles # (Auto) 1800 H (0-900) /uL Eos # (Auto) 100 (0-450) /uL Baso # (Auto) 100 (0-100) /uL Platelet Estimate Adequate on smear Plt Morphology Comment RBC Morphology Normal morphology PT 14.1 H (10.1-12.7) SECONDS INR 1.2 (0.9-1.3) APTT 27 (26-36) SECONDS Sodium 136 L (137-145) mmol/L Potassium 3.7 (3.4-5.1) mmol/L Chloride 99 (98-107) mmol/L Carbon Dioxide 28 (22-32) mmol/L BUN 36 H (7-17) mg/dL Creatinine 1.19 H (0.52-1.04) mg/dL Estimated GFR 45 L (>60) mL/min BUN/Creatinine Ratio 30.3 H (6-22) Glucose 92 (80-110) mg/dL Calcium 9.1 (8.4-10.2) mg/dL Total Bilirubin 0.5 (0.2-1.3) mg/dL AST 49 H (14-36) IU/L ALT 87 H (<35) IU/L Alkaline Phosphatase 81 (38-126) U/L Total Protein 7.5 (6.3-8.2) g/dL Albumin 4.0 (3.5-5.0) g/dL Globulin 3.5 (1.7-4.1) g/dL Albumin/Globulin Ratio 1.1 (1.0-2.8) Blood Type Antibody Screen 10/25/22 Range/Units 16:05 WBC (4.5-11.0) X10^3/uL RBC (4.0-5.2) X10^6/uL Hgb (12.0-16.0) g/dL Hct (36-46) % MCV (80-100) fL MCH (26-34) PG MCHC (30-36) % RDW (11.6-14.8) % Plt Count (150-400) X10^3/uL Neut % (Auto) (50-75) % Lymph % (Auto) (25-40) % Charles % (Auto) (3-14) % Eos % (Auto) (2-4) % Baso % (Auto) (0-2) % Neut # (Auto) (7834-3338) /uL Lymph # (Auto) (6678-3089) /uL Charles # (Auto) (0-900) /uL Eos # (Auto) (0-450) /uL Baso # (Auto) (0-100) /uL Platelet Estimate Plt Morphology Comment RBC Morphology PT (10.1-12.7) SECONDS INR (0.9-1.3) APTT (26-36) SECONDS Sodium (137-145) mmol/L Potassium (3.4-5.1) mmol/L Chloride (98-107) mmol/L Carbon Dioxide (22-32) mmol/L BUN (7-17) mg/dL Creatinine (0.52-1.04) mg/dL Estimated GFR (>60) mL/min BUN/Creatinine Ratio (6-22) Glucose (80-110) mg/dL Calcium (8.4-10.2) mg/dL Total Bilirubin (0.2-1.3) mg/dL AST (14-36) IU/L ALT (<35) IU/L Alkaline Phosphatase (38-126) U/L Total Protein (6.3-8.2) g/dL Albumin (3.5-5.0) g/dL Globulin (1.7-4.1) g/dL Albumin/Globulin Ratio (1.0-2.8) Blood Type O Positive Antibody Screen Negative Imaging Data CT scan - abdomen/pelvis: Radiologist's Impression: [address] [address] [address] Scan Report Signed Patient: Estela Mcgarry MR#: [id number] : 1935 Acct:[id number] Age/Sex: 87 / F Date of Service: 10/25/22 Loc: ED Accession Number: [id number] ?? Procedure: CT abdomen pelvis wo con Ordering Provider: Colin Ramsey MD PROCEDURE:? CT ABDOMEN PELVIS WO CON ? INDICATIONS:? GI bleed ? TECHNIQUE:? Noncontrast 5 mm thick sections acquired from the diaphragms to the symphysis.? 5 mm coronal and sagittal reformats were then performed.? For radiation dose reduction, the following was used:? automated exposure control, adjustment of mA and/or kV according to patient size.? ? COMPARISON:? None. ? FINDINGS:? Image quality:? Excellent.? ? ABDOMEN:? Lung bases:? Lung bases are clear.? Heart size is normal.? Mild mitral annular calcification.? No hiatal hernia.? ? Solid organs:? There are surgical clips in the gallbladder fossa resulting in artifact.? Given this, the unenhanced appearance of the liver, biliary tree, pancreas, spleen, and adrenal glands are normal.? There is chronic appearing right renal atrophy.? There is prominence of the left extrarenal pelvis.? No urinary calcifications or hydroureter. ? Peritoneum and bowel:? No free fluid or free air.? There is mild wall thickening of the distal stomach without significant perigastric inflammation or fluid.? Small bowel loops are decompressed.? Normal appendix.? No visible pericolonic inflammation.? Descending colon, sigmoid colon, and rectum are decompressed.? Mild fullness in the distal rectum may be due to redundancy and is not well evaluated on this exam. ? Nodes and vessels:? No retroperitoneal or mesenteric adenopathy by size criteria.? Aorta and inferior vena cava are normal in caliber.? Moderate abdominal aortic atherosclerotic calcification.? ? Miscellaneous:? Tiny fat containing umbilical hernia.? ? ? PELVIS:? Genitourinary:? Bladder wall thickness is normal.? ? Miscellaneous:? No inguinal hernias or adenopathy.? ? Bones:? Left hip arthroplasty components cause streak artifact across the pelvis.? Prominent rightward scoliotic curvature.? Degenerative sclerosis at the right femoroacetabular joint.? No acute fractures. ? IMPRESSION:? ? 1. Possible gastric antrum mural thickening without adjacent inflammation or free air. ? 2. Slight nonspecific fullness of the distal rectum, most likely due to redundancy.? Clinical correlation is recommended. ? 3. Chronically diminutive right kidney.? ? ? Dictated by: Karine Schaffer M.D. on 10/25/2022 at 17:57 ? ? Approved by: Karine Schaffer M.D. on 10/25/2022 at 18:03 ? [facility] Narrative Medical decision making narrative: Addendum November 23, 2022 7:15 a.m. Please note. This record has been reviewed and being updated due to my original chart was accessed by hospitalist and was edited erroneously by hospitalist. I have completed the chart to the best of my recollection and knowledge. Patient here with daughter with complaints rectal bleeding for the past 3 days. Now starting to feel short of breath weak and dizzy. She is changing a pad every hour. Patient has a history of atrial fibrillation and is on Eliquis. Last Eliquis taken was Sunday night. This is now Sunday afternoon. Patient never had bleeding from Eliquis before. Vital signs reviewed. Patient is not toxic. Denies abdominal pain. Patient's daughter and female nurse, Devika, at bedside to assistant county engineer from rectal exam. After history and exam CBC CMP PT PTT type and screen cardiac nurse specialist CT abdomen pelvis [facility] CC: Rectal bleed Complicating co-morbidities: On Eliquis Data collected from: Patient and daughter Medical records reviewed: No recent visit for this complaint Differential considered: Includes but not limited to GI bleed/lower GI bleed upper GI bleed Exam documented above, pertinent findings include: Dark blood clots per rectum Lab Test results independently reviewed as above. Pertinent findings: Reviewed in chart Imaging studies independently reviewed: CT abdomen pelvis possible gastric antrum mural thickening. Slight nonspecific fullness of the distal rectum. Consultations: Reviewed with hospitalist for admission Treatments: Reviewed in chart Re-evaluations: Spoke with patient and daughter. They agree for admission. Discussion: Appropriate for admission. Patient will need monitoring and possible endoscopy. Patient and daughter agree for admit. Reviewed with hospitalist for admission. Diagnosis: Acute GI bleed Discharge Plan Departure Patient Disposition: Admitted as Observation Clinical Impression: Acute GI bleeding Admit Date/Time: 10/25/22 18:32 Admit Provider: Trevor Tran
== END 2022-10-29 13:35 | disposition home or self-care (01) | DRG 347 ==
LOC: ED 16:10 → AC 18:33
PROVIDERS: Surgery; Admitting Provider Internal Medicine; Emergency Provider Emergency Medicine; PCP Nurse Practitioner; Referring Provider Emergency Medicine; Visit Provider Internal Medicine
PROC: 0DJ08ZZ Inspection of Upper Intestinal Tract, Via Natural or Artificial Opening Endoscopic (ICD-10-PCS; CPT 43235; principal; 2022-10-27 14:45)
PROC: 0DJD8ZZ Inspection of Lower Intestinal Tract, Via Natural or Artificial Opening Endoscopic (ICD-10-PCS; CPT 45378; 2022-10-27 14:45)
PROC: (CPT 46260; principal; 2022-10-28 09:00)
DX: K64.8 Other hemorrhoids (principal); K29.71 Gastritis, unspecified, with bleeding; D62 Acute posthemorrhagic anemia; I12.9 Hypertensive chronic kidney disease with stage 1 through stage 4 chronic kidney disease, or unspecified chronic kidney disease; N18.31 Chronic kidney disease, stage 3a; G89.29 Other chronic pain; I48.0 Paroxysmal atrial fibrillation; D12.0 Benign neoplasm of cecum; K64.4 Residual hemorrhoidal skin tags; E03.9 Hypothyroidism, unspecified; M54.9 Dorsalgia, unspecified; M10.9 Gout, unspecified; Z87.891 Personal history of nicotine dependence; Z79.01 Long term (current) use of anticoagulants; K57.30 Diverticulosis of large intestine without perforation or abscess without bleeding
CPT/HCPCS: 43239; 45380; 46260; 36415; 46250; 46945; 74176; 80053; 83735; 85014; 85018; 85025; 85610; 85730; 86850; 86900; 86901; 93005; 93010; 96374; 96376; 99232; 99284; G0378; C9113; C9290; J2405; J2704; J3010; J3490

== ENCOUNTER → 2022-10-31 10:26 | Outpatient (CLI) | payer MEDICARE, MEDICAID, SELFPAY ==
[2022-10-25 21:50] VITALS: BMI 35.9
[2022-10-31 11:22] LABS: Add Manual Diff / Slide Review NO; Basophils Absolute Auto 100 /uL (0-100); Basophils Percent Auto 0.6 % (0-2); Eosinophils Absolute Auto 200 /uL (0-450); Eosinophils Percent Auto 1.8 % (2-4); Hematocrit 29.8 % (36-46); Lymphocytes Absolute Auto 1200 /uL (1100-4500); Lymphocytes Percent Auto 9.9 % (25-40); Mean Corpuscular HGB Conc 33.5 % (30-36); Mean Corpuscular Volume 101.4 fL (80-100); Monocytes Absolute Auto 1000 /uL (0-900); Monocytes Percent Auto 8.2 % (3-14); Neutrophils Absolute Auto 9200 /uL (1500-7000); Neutrophils Percent Auto 79.5 % (50-75); Platelet Count 146 X10^3/uL (150-400); Red Blood Cell Count 2.94 X10^6/uL (4.0-5.2); Red Cell Distribution Width 14.5 % (11.6-14.8); White Blood Cell Count 11.6 X10^3/uL (4.5-11.0)
[2022-10-31 11:46] LABS: HEMOLYSIS < 15 (0-50); Iron 38 ug/dL (37-170)
[2022-10-31 11:58] LABS: Percent Iron Saturation 12 % (15-50); Total Iron Binding Capacity 309 ug/dL (265-497); Transferrin 213 mg/dL (206-381)
[2022-10-31 12:09] LABS: BUN Creatinine Ratio 15.9 (6-22); Blood Urea Nitrogen 13 mg/dL (7-17); Calcium 8.8 mg/dL (8.4-10.2); Carbon Dioxide 30 mmol/L (22-32); Chloride 104 mmol/L (98-107); Estimated Glomerular Filt Rate > 60 mL/min (>60); Glucose 128 mg/dL (80-110); HEMOLYSIS < 15 (0-50); Potassium 3.8 mmol/L (3.4-5.1); Sodium 138 mmol/L (137-145)
[2022-10-31 12:26] LABS: Ferritin 151 ng/mL (11-264)
== END ==
PROVIDERS: Family Medicine; PCP Nurse Practitioner; Referring Provider Nurse Practitioner; Visit Provider Nurse Practitioner
DX: K92.2 Gastrointestinal hemorrhage, unspecified (principal)
CPT/HCPCS: 36415; 80048; 82728; 83540; 83550; 85025

== ENCOUNTER 2022-11-03 15:59 | Emergency (ER) | payer MEDICARE, MEDICAID, SELFPAY ==
[2022-10-25 21:50] VITALS: BMI 35.9
[2022-11-03 16:00] VITALS: BP 129/58; PULSE 84; RESP 18; TEMP 36.6; O2SAT 96; BMI 37.3
[2022-11-03 16:31] VITALS: BP 118/70; PULSE 81; RESP 22; O2SAT 96
--- NOTE | 2022-11-03 16:36 | DI.RAD.S_ITS ---
PROCEDURE: XR CHEST 1V INDICATIONS: chest pain TECHNIQUE: One view of the chest was acquired. COMPARISON: [facility], [facility]DO, XR CHEST 1V, 02/01/2021, 15:50. [facility], REYM[facility]DO, CHEST 1 VIEW, 05/23/2016, 9:03. FINDINGS: Surgical changes and devices: None. Lungs and pleura: Lungs are clear. No pleural effusions or pneumothorax. Mediastinum: Mediastinal contours appear normal. Heart size is normal. Bones and chest wall: No suspicious bony lesions. Overlying soft tissues appear unremarkable. IMPRESSION: Normal for age, source of current chest pain symptoms is not seen. Dictated by: Cheikh Dyson M.D. on 11/03/2022 at 17:00 Approved by: Cheikh Dyson M.D. on 11/03/2022 at 17:00
[2022-11-03 17:00] VITALS: BP 102/59; PULSE 91; RESP 18; O2SAT 95
[2022-11-03 17:09] LABS: Add Manual Diff / Slide Review NO; Basophils Absolute Auto 100 /uL (0-100); Basophils Percent Auto 1.2 % (0-2); Eosinophils Absolute Auto 300 /uL (0-450); Eosinophils Percent Auto 2.4 % (2-4); Hematocrit 28.9 % (36-46); Hemoglobin 9.8 g/dL (12.0-16.0); Lymphocytes Absolute Auto 1500 /uL (1100-4500); Lymphocytes Percent Auto 13.6 % (25-40); Mean Corpuscular HGB Conc 33.8 % (30-36); Mean Corpuscular Hemoglobin 34.1 PG (26-34); Mean Corpuscular Volume 100.8 fL (80-100); Monocytes Absolute Auto 1100 /uL (0-900); Monocytes Percent Auto 9.8 % (3-14); Neutrophils Absolute Auto 7900 /uL (1500-7000); Platelet Count 187 X10^3/uL (150-400); Red Blood Cell Count 2.87 X10^6/uL (4.0-5.2); Red Cell Distribution Width 14.7 % (11.6-14.8); White Blood Cell Count 10.8 X10^3/uL (4.5-11.0)
[2022-11-03 17:13] LABS: INR 1.3 (0.9-1.3)
[2022-11-03 17:14] LABS: Alanine Aminotransferase 29 IU/L (<35); Albumin 3.4 g/dL (3.5-5.0); Alkaline Phosphatase 79 U/L (38-126); Aspartate Aminotransferase 38 IU/L (14-36); BUN Creatinine Ratio 19.2 (6-22); Bilirubin Total 0.5 mg/dL (0.2-1.3); Blood Urea Nitrogen 19 mg/dL (7-17); Calcium 8.7 mg/dL (8.4-10.2); Carbon Dioxide 26 mmol/L (22-32); Chloride 100 mmol/L (98-107); Creatine Kinase 60 U/L (30-135); Estimated Glomerular Filt Rate 56 mL/min (>60); Globulin 3.3 g/dL (1.7-4.1); Glucose 108 mg/dL (80-110); Lipase 69 U/L (23-300); Magnesium 1.9 mg/dL (1.6-2.3); Sodium 135 mmol/L (137-145); Total Protein 6.7 g/dL (6.3-8.2)
[2022-11-03 17:15] LABS: HEMOLYSIS 68 (0-50); PTT Partial Thromboplastin Tim 28 SECONDS (26-36)
[2022-11-03 17:26] LABS: Troponin I < 0.012 ng/mL (0.01-0.034)
[2022-11-03 17:30] VITALS: BP 113/59; PULSE 92; RESP 23; O2SAT 97
[2022-11-03 18:00] VITALS: BP 129/63; PULSE 90; RESP 21; O2SAT 93
[2022-11-03 18:30] VITALS: BP 117/56; PULSE 87; RESP 21; O2SAT 97
--- NOTE | 2022-11-03 18:37 | ED_ITS ---
HPI - General Adult General Chief complaint: Dizziness Stated complaint: dizzy- low WBC per ME Time Seen by Provider: 11/03/22 18:00 Source: patient and EMS Mode of arrival: EMS Limitations: no limitations History of Present Illness HPI narrative: patient is an 87-year-old female who was brought in by EMS for evaluation of an episode of dizziness and low blood pressure. She does have a history of atrial fibrillation. She is not on anticoagulation. States she was taken off this because she had a GI bleed. She also recently had hemorrhoid surgery. She states that earlier today she had an episode of dizziness that was not described as vertigo. She was not having palpitations or shortness of breath or belly pain or chest pain. She states that she currently feels just fine and has no symptoms. She was advised that she come to the emergency department for further evaluation. She states that the lightheadedness was not associated with a change in position. She has been taking all of her medications as directed. Related Data Home Medications Medication Instructions Recorded Confirmed furosemide 40 mg tablet 40 mg PO DAILY 07/24/22 10/31/22 acetaminophen 500 mg PO TID PRN Fever Or Pain 10/26/22 10/31/22 calcium carbonate 500 mg calcium 500 mg PO DAILY PRN Acid Reflux 10/26/22 10/31/22 (1,250 mg) chewable tablet Previous Rx's Medication Instructions Recorded cholecalciferol (vitamin D3) 25 25 mcg PO DAILY #90 caps 06/30/21 mcg (1,000 unit) capsule levothyroxine 25 mcg tablet See Rx Instructions .Route 05/29/22 .COMPLEX #100 ea colchicine (gout) 0.6 mg tablet 0.6 mg PO BID PRN gout flare #20 07/24/22 tabs diltiazem HCl 180 mg capsule,24 180 mg PO QAM #90 caps 07/24/22 hr,extended release docusate sodium 100 mg capsule See Rx Instructions .Route 07/24/22 .COMPLEX #60 ea gabapentin 100 mg capsule See Rx Instructions .Route 07/24/22 .COMPLEX #60 ea gabapentin 300 mg capsule 600 mg PO HS #180 caps 07/24/22 (Neurontin) [id number]-jjqgyguhq-[id number] C-Mn 500 1 cap PO TID #90 caps 07/24/22 mg-400 mg capsule (Glucosamine Chondroitin Maximum Strength) metoprolol succinate 50 mg 100 mg PO DAILY #180 tabs 07/24/22 tablet,extended release 24 hr nitroglycerin 0.4 mg sublingual See Rx Instructions .Route 07/24/22 tablet .COMPLEX #25 ea tramadol 50 mg tablet 50 mg PO BID #60 ea 08/11/22 valacyclovir 1 gram tablet See Rx Instructions .Route 10/09/22 .COMPLEX #15 ea epinephrine 0.3 mg/0.3 mL 0.3 mg (0.3 mL) IM Q5-15M PRN 10/21/22 injection, auto-injector (EpiPen anaphylaxis #2 ea 2-Chau) epinephrine 0.3 mg/0.3 mL 0.3 mg (0.3 mL) IM Q5-15M PRN 10/21/22 injection, auto-injector (EpiPen anaphylaxis #2 ea 2-Chau) apixaban 5 mg tablet (Eliquis) 5 mg PO BID #1 tab 10/28/22 psyllium husk (with sugar) 3.4 1 tbsp PO BID #822 grams 10/28/22 gram/7 gram oral powder (Fiber (psyllium husk-sugar)) Allergies Allergy/AdvReac Type Severity Reaction Status Date / Time amoxicillin Allergy Severe Swelling Verified 11/03/22 16:33 of Lip/Tongue/Throat celecoxib [From Celebrex] AdvReac Severe Kidney Verified 11/03/22 16:33 failure codeine [CODEINE] AdvReac Mild Nausea, Verified 11/03/22 16:33 vomiting Review of Systems Constitutional Constitutional: Reports system reviewed and no additional complaints, except as documented ENT Ears, Nose, Mouth, and Throat: Reports system reviewed and no additional complaints, except as documented Cardiovascular Cardiovascular: Reports system reviewed and no additional complaints, except as documented Respiratory Respiratory: Reports system reviewed and no additional complaints, except as documented Gastrointestinal Gastrointestinal: Reports system reviewed and no additional complaints, except as documented Hematologic/Lymphatic On Anticoagulants: No Patient History Medical History Acute blood loss anemia Atrial fibrillation Chicken pox Chronic anticoagulation Chronic back pain Chronic kidney disease Chronic pain Claudication of lower extremity DDD (degenerative disc disease), lumbar Edema Former smoker Genital herpes Gout Hearing loss Heart palpitations Hemorrhoid History of urinary incontinence HTN (hypertension) Hypothyroidism Kidney disease (~2015) Left knee pain Neuropathy Osteoarthritis Osteoporosis Pneumonia (05/22/16) Right knee pain Rupture of right tympanic membrane Scoliosis Screening for malignant neoplasm of colon Shoulder pain Skin cancer Warfarin anticoagulation Surgical History Anesthesia History of carpal tunnel release (~2008) History of hysterectomy (~01/1990) History of left hip replacement (~2016) Hx of bladder repair surgery (~1992) Hx of cholecystectomy (~1979) Hx of shoulder surgery (~2006) Status post bilateral cataract extraction (~2004) Family History Father Cancer Mother Suicide Brother Hypertension Sister Pneumonia Grandfather Diabetes mellitus Family/Other Cancer Social History household members: none Smoking Status: Former smoker alcohol intake: current Smoking Status: Former smoker alcohol intake frequency: holidays/special occasions only Substance Use Type: does not use Exam Initial Vital Signs Initial Vital Signs: Vital Signs Temperature 97.8 F 11/03/22 16:00 Pulse Rate 84 11/03/22 16:00 Respiratory Rate 18 11/03/22 16:00 Blood Pressure 129/58 L 11/03/22 16:00 Pulse Oximetry 96 11/03/22 16:00 Oxygen Delivery Method Room Air 11/03/22 16:00 Const General: cooperative, comfortable and No ill appearing HENMT Head: normal to inspection and normocephalic Resp Effort & Inspection: normal respiratory effort Auscultation: clear to auscultation bilaterally Cardio Rate: regular rate Rhythm: abnormal rhythm GI Inspection: normal to inspection Neuro General: patient alert, patient awake, patient oriented x3 and moves all extremities Extrem General: normal to inspection Course Orders Ordered: ED Orders 11/03/22 16:36 XR chest 1V Stat EKG-12 Lead Stat Vital Signs Vital signs: Vital Signs - 8 hr 11/03/22 18:00 11/03/22 18:00 11/03/22 18:30 Pulse Rate 90 Respiratory Rate 21 Blood Pressure 129/63 117/56 L Pulse Oximetry 93 Oxygen Delivery Method 11/03/22 18:30 Pulse Rate 87 Respiratory Rate 21 Blood Pressure Pulse Oximetry 97 Oxygen Delivery Method Room Air Medical Decision Making Lab Data Lab results reviewed: Yes I reviewed the patient's lab results. 11/03/22 16:30 11/03/22 16:30 Labs: Lab Results 11/03/22 11/03/22 11/03/22 Range/Units 16:30 16:30 16:30 WBC 10.8 (4.5-11.0) X10^3/uL RBC 2.87 L (4.0-5.2) X10^6/uL Hgb 9.8 L (12.0-16.0) g/dL Hct 28.9 L (36-46) % MCV 100.8 H (80-100) fL MCH 34.1 H (26-34) PG MCHC 33.8 (30-36) % RDW 14.7 (11.6-14.8) % Plt Count 187 (150-400) X10^3/uL Neut % (Auto) 73.0 (50-75) % Lymph % (Auto) 13.6 L (25-40) % Snyder % (Auto) 9.8 (3-14) % Eos % (Auto) 2.4 (2-4) % Baso % (Auto) 1.2 (0-2) % Neut # (Auto) 7900 H (4314-9275) /uL Lymph # (Auto) 1500 (6555-5436) /uL Snyder # (Auto) 1100 H (0-900) /uL Eos # (Auto) 300 (0-450) /uL Baso # (Auto) 100 (0-100) /uL PT 15.0 H (10.1-12.7) SECONDS INR 1.3 (0.9-1.3) APTT 28 (26-36) SECONDS Sodium 135 L (137-145) mmol/L Potassium 4.0 (3.4-5.1) mmol/L Chloride 100 (98-107) mmol/L Carbon Dioxide 26 (22-32) mmol/L BUN 19 H (7-17) mg/dL Creatinine 0.99 (0.52-1.04) mg/dL Estimated GFR 56 L (>60) mL/min BUN/Creatinine Ratio 19.2 (6-22) Glucose 108 (80-110) mg/dL Calcium 8.7 (8.4-10.2) mg/dL Magnesium 1.9 (1.6-2.3) mg/dL Total Bilirubin 0.5 (0.2-1.3) mg/dL AST 38 H (14-36) IU/L ALT 29 (<35) IU/L Alkaline Phosphatase 79 (38-126) U/L Total Creatine Kinase 60 (30-135) U/L Troponin I < 0.012 (0.01-0.034) ng/mL Total Protein 6.7 (6.3-8.2) g/dL Albumin 3.4 L (3.5-5.0) g/dL Globulin 3.3 (1.7-4.1) g/dL Albumin/Globulin Ratio 1.0 (1.0-2.8) Lipase 69 (23-300) U/L Imaging Data Chest x-ray: Radiologist's Impression: PROCEDURE:? XR CHEST 1V ? INDICATIONS:? chest pain ? TECHNIQUE:? One view of the chest was acquired.? ? COMPARISON:? [facility], , XR CHEST 1V, 02/01/2021, 15:50.? [facility], , CHEST 1 VIEW, 05/23/2016, 9:03. ? FINDINGS:? ? Surgical changes and devices:? None.? ? Lungs and pleura:? Lungs are clear.? No pleural effusions or pneumothorax.? ? Mediastinum:? Mediastinal contours appear normal.? Heart size is normal.? ? Bones and chest wall:? No suspicious bony lesions.? Overlying soft tissues appear unremarkable.? ? IMPRESSION:? Normal for age, source of current chest pain symptoms is not seen. ECG Data Attestation: I personally reviewed and interpreted this ECG as follows: Interpretation: Atrial fibrillation Ventricular rate of 84 Normal axis Normal QRS Normal QTC No ST T wave changes MDM Narrative Medical decision making narrative: Patient is in AFib but she is rate controlled. She is not on anticoagulation. No fevers. She states her symptoms have all now completely resolved. She ambulated around the emergency department with a walker without any issues. She stated that she actually did not want to come to the emergency department but her daughter advised that she come in for evaluation. Patient is not hypotensive here in the ER. Had a discussion with her regarding her symptoms. We did discuss that potentially she had a transient arrhythmia that caused her symptoms or another cause however I did not have a easily identifiable source nor treatment for her. Patient expressed understanding of this. She states she would like to go she was given return precautions follow-up instructions. She expressed understanding and agreement Discharge Plan Departure Patient Disposition: Home Clinical Impression: Dizziness, Hypotension Instructions: DI for Dizziness-Nonvertigo Activity Restrictions/Additional Instructions: I do recommend that you continue to take all of your medications as directed. Contact your primary doctor for a follow-up. Return to the emergency department for new or worsening symptoms. Prescriptions: No Action cholecalciferol (vitamin D3) 25 mcg (1,000 unit) capsule 25 mcg PO DAILY Qty: 90 3RF levothyroxine 25 mcg tablet See Rx Instructions .ROUTE .COMPLEX Qty: 100 11RF Dose Instruction: 2 TABS (50MCG) BY MOUTH EVERY SUNDAY;1 TAB BY MOUTH 6 TIMES WEEKLY ( SUN, SUN, SUN, SUN, SUN, SAT) Rx Instructions: 2 TABS (50MCG) BY MOUTH EVERY SUNDAY;1 TAB BY MOUTH 6 TIMES WEEKLY ( SUN, SUN, SUN, SUN, SUN, SAT) colchicine (gout) 0.6 mg tablet 0.6 mg PO BID PRN (Reason: gout flare) Qty: 20 3RF Rx Instructions: Take one tablet twice daily for 2 days as needed for gout flare diltiazem HCl 180 mg capsule,extended release 24 hr 180 mg PO QAM Qty: 90 3RF docusate sodium 100 mg capsule See Rx Instructions .ROUTE .COMPLEX Qty: 60 11RF Dose Instruction: 1 CAP BY MOUTH EVERY EVENING;1 CAP BY MOUTH EVERY DAY NEEDED FOR CONSTIPATION *HOLD X 24HRS FOR DIARRHEA* Rx Instructions: 1 CAP BY MOUTH EVERY EVENING;1 CAP BY MOUTH EVERY DAY NEEDED FOR CONSTIPATION *HOLD X 24HRS FOR DIARRHEA* furosemide 40 mg tablet 40 mg PO DAILY gabapentin [Neurontin] 300 mg capsule 600 mg PO HS Qty: 180 3RF gabapentin 100 mg capsule See Rx Instructions .ROUTE .COMPLEX Qty: 60 11RF Dose Instruction: 1 CAP BY MOUTH 2 TIMES DAILY Rx Instructions: 1 CAP BY MOUTH 2 TIMES DAILY (0800, 1200) gheydhbydyi-zifjsbdoc-xbg C-Mn [Glucosamine Chondroitin MaxStr] 500-400 mg capsule 1 cap PO TID Qty: 90 11RF metoprolol succinate 50 mg tablet extended release 24 hr 100 mg PO DAILY Qty: 180 3RF Rx Instructions: Take 2 tabs daily for atrial fibrillation nitroglycerin 0.4 mg tablet, sublingual See Rx Instructions .ROUTE .COMPLEX Qty: 25 2RF Dose Instruction: 1 TABLET SUBLINGUALLY EVERY 5 MINS NEEDED FOR CHEST PAIN UP TO 3 DOSES; CALL 911 IF NO RELIEF Rx Instructions: 1 TABLET SUBLINGUALLY EVERY 5 MINS NEEDED FOR CHEST PAIN UP TO 3 DOSES; CALL 911 IF NO RELIEF tramadol 50 mg tablet 50 mg PO BID Qty: 60 5RF valacyclovir 1 gram tablet See Rx Instructions .ROUTE .COMPLEX Qty: 15 11RF Dose Instruction: 0.5 TAB (500MG) BY MOUTH EVERY DAY (DX: GENITAL INFECTION) Rx Instructions: 0.5 TAB (500MG) BY MOUTH EVERY DAY (DX: GENITAL INFECTION) calcium carbonate 500 mg calcium (1,250 mg) tablet,chewable 500 mg PO DAILY PRN (Reason: Acid Reflux) acetaminophen 500 mg capsule 500 mg PO TID PRN (Reason: Fever Or Pain) Fiber (psyllium husk-sugar) 3.4 gram/7 gram powder 1 tbsp PO BID Qty: 822 0RF Eliquis 5 mg tablet 5 mg PO BID Qty: 1 0RF Rx Instructions: RESUME ON 10/29/22 epinephrine [EpiPen 2-Chau] 0.3 mg/0.3 mL auto-injector 0.3 mg IM Q5-15M PRN (Reason: anaphylaxis) Qty: 2 0RF Rx Instructions: do not exceed 3 doses per episode epinephrine [EpiPen 2-Chau] 0.3 mg/0.3 mL auto-injector 0.3 mg IM Q5-15M PRN (Reason: anaphylaxis) Qty: 2 0RF Rx Instructions: do not exceed 3 doses per episode Referrals: Vielka Iyer ARNP [Primary Care Provider] - Stand Alone Forms: Patient Portal/API
--- NOTE | 2022-11-03 19:10 | PC.NURSE ---
tolerated well. dr. thompson aware
== END 2022-11-03 19:08 | disposition home or self-care (01) ==
PROVIDERS: Emergency Medicine; Emergency Provider Emergency Medicine; PCP Nurse Practitioner
DX: I95.9 Hypotension, unspecified (principal); R42 Dizziness and giddiness; R07.9 Chest pain, unspecified
CPT/HCPCS: 36415; 71045; 80053; 82550; 83690; 83735; 84484; 85025; 85610; 85730; 93005; 93010; 99283; 99284

== ENCOUNTER → 2023-01-16 11:56 | Outpatient (CLI) | payer MEDICARE, MEDICAID, SELFPAY ==
[2022-10-25 21:50] VITALS: BMI 35.9
[2023-01-16 13:03] LABS: HEMOLYSIS < 15 (0-50); Iron 81 ug/dL (37-170)
[2023-01-16 13:08] LABS: Basophils Absolute Auto 100 /uL (0-100); Basophils Percent Auto 1.1 % (0-2); Eosinophils Absolute Auto 100 /uL (0-450); Eosinophils Percent Auto 1.5 % (2-4); Hematocrit 37.5 % (36-46); Hemoglobin 12.7 g/dL (12.0-16.0); Lymphocytes Absolute Auto 1600 /uL (1100-4500); Lymphocytes Percent Auto 17.9 % (25-40); Mean Corpuscular HGB Conc 33.9 % (30-36); Mean Corpuscular Hemoglobin 33.2 PG (26-34); Mean Corpuscular Volume 97.9 fL (80-100); Monocytes Absolute Auto 900 /uL (0-900); Neutrophils Absolute Auto 6400 /uL (1500-7000); Neutrophils Percent Auto 69.5 % (50-75); Platelet Count 182 X10^3/uL (150-400); Red Blood Cell Count 3.83 X10^6/uL (4.0-5.2); Red Cell Distribution Width 14.3 % (11.6-14.8); White Blood Cell Count 9.2 X10^3/uL (4.5-11.0)
[2023-01-16 13:13] LABS: Add Manual Diff / Slide Review SLIDE REVIEW
[2023-01-16 13:14] LABS: BUN Creatinine Ratio 21.1 (6-22); Blood Urea Nitrogen 26 mg/dL (7-17); Calcium 9.6 mg/dL (8.4-10.2); Carbon Dioxide 29 mmol/L (22-32); Chloride 99 mmol/L (98-107); Estimated Glomerular Filt Rate 43 mL/min (>60); Glucose 95 mg/dL (80-110); HEMOLYSIS < 15 (0-50); Potassium 3.8 mmol/L (3.4-5.1); Sodium 138 mmol/L (137-145)
[2023-01-16 13:16] LABS: Percent Iron Saturation 22 % (15-50); Total Iron Binding Capacity 373 ug/dL (265-497); Transferrin 302 mg/dL (206-381)
[2023-01-16 13:42] LABS: Ferritin 51 ng/mL (11-264)
[2023-01-16 14:22] LABS: Anisocytosis 1+
== END ==
PROVIDERS: PCP Nurse Practitioner; Referring Provider Family Medicine; Visit Provider Family Medicine
DX: D62 Acute posthemorrhagic anemia (principal); I10 Essential (primary) hypertension; N18.30 Chronic kidney disease, stage 3 unspecified
CPT/HCPCS: 36415; 80048; 82728; 83540; 83550; 85025